=== PATIENT | male | born 1960 | race African-American/Black ===

== ENCOUNTER 2017-03-06 09:27 | Inpatient (IN) | payer OTHER ==
[2017-03-06 09:36] VITALS: BMI 25.8
--- NOTE | 2017-03-06 10:01 | PDOC ---
History of Present Illness - General History Source: Patient Exam Limitations: No Limitations - History of Present Illness Initial Comments: 03/06/17 10:25 The patient is a 56 year old male, with a significant past medical history of diabetes(non-compliant with medications), who presents to the emergency department with right foot pain, swelling, and erythema for approximately 4 days. The patient reports he began to develop pain in his right foot while at work 4 days ago. He denies any foot injuries or abrasions. Patient states when he returned home and took off his shoe, he noted increased swelling and erythema. He denies any associated fever, chills, numbness, tingling, or dizziness. He denies any chest pain, shortness of breath, diaphoresis, or palpitations. He denies any recent travel or sick contacts. Allergies: NKDA Past Surgical History: None reported Social History: Non smoker. No ETOH or recreational drug use. <Rishi Carnes - Last Filed: 03/06/17 13:31> <Ry Xiong - Last Filed: 03/06/17 16:36> - General Chief Complaint: Pain, Acute Stated Complaint: FOOT PAIN Time Seen by Provider: 03/06/17 10:00 Past History <Rishi Carnes - Last Filed: 03/06/17 13:31> - Past Medical History Anemia: No Asthma: No CVA: No COPD: No Diabetes: Yes (non complient) HTN: No - Immunization History Immunization Up to Date: Yes - Suicide/Smoking/Psychosocial Hx Smoking Status: No Smoking History: Never smoked Have you smoked in the past 12 months: No Number of Cigarettes Smoked Daily: 0 Information on smoking cessation initiated: No Hx Alcohol Use: No Drug/Substance Use Hx: No Substance Use Type: Alcohol Hx Substance Use Treatment: No <Ry Xiong - Last Filed: 03/06/17 16:36> - Past Medical History Allergies/Adverse Reactions: Allergies Allergy/AdvReac Type Severity Reaction Status Date / Time No Known Allergies Allergy Verified 03/06/17 09:31 Home Medications: Ambulatory Orders NK [No Known Home Medication] 03/06/17 Review of Systems - Review of Systems Able to Perform ROS?: Yes Comments:: 03/06/17 10:25 ROS: A complete review of 10 out of 10 review of systems is taken and is negative apart from what is previously mentioned below and in the HPI. <Rishi Carnes - Last Filed: 03/06/17 13:31> *Physical Exam - Vital Signs Last Vital Signs Temp Pulse Resp BP Pulse Ox 98.7 F 102 H 17 143/85 98 03/06/17 09:32 03/06/17 09:32 03/06/17 09:32 03/06/17 09:32 03/06/17 09:32 - Physical Exam Comments: 03/06/17 10:25 Vitals: Triage vital signs reviewed General Appearance: No acute distress, well nourished, well developed. Afebrile. Cardiac: Tachycardic. Regular rhythm, no murmurs, no rubs, no gallops Extremities: Full range of motion to all extremities, no cyanosis, clubbing. Skin: 7x11 cm area of cellulitis to the right dorsal aspect of the right foot that is erythematous and warm to touch. Remainder of the extremities warm and dry, no lesions, no petechiae <Rishi Carnes - Last Filed: 03/06/17 13:31> - Vital Signs Last Vital Signs Temp Pulse Resp BP Pulse Ox 98.7 F 102 H 17 143/85 98 03/06/17 09:32 03/06/17 09:32 03/06/17 09:32 03/06/17 09:32 03/06/17 09:32 <Ry Xiong - Last Filed: 03/06/17 16:36> ED Treatment Course - LABORATORY CBC & Chemistry Diagram: 03/06/17 11:45 03/06/17 10:58 - Additional Consults Time Called: 13:20 (First call to Dr. Wylie. Case discussed at this time.) Reason/Comments: Pt has not f/u with primary care provider in years. <Rishi Carnes - Last Filed: 03/06/17 13:31> - LABORATORY CBC & Chemistry Diagram: 03/06/17 11:45 03/06/17 10:58 <Ry Xiong - Last Filed: 03/06/17 16:36> Medical Decision Making - Medical Decision Making 03/06/17 16:36 57 years old with right foot cellulitis. Patient is a noncompliant diabetic with chills slight tachycardia and a slightly elevated white blood cell count. Given the patient has no close follow-up decision made to admit for IV antibiotics and further management. <Ry Xiong - Last Filed: 03/06/17 16:36> *DC/Admit/Observation/Transfer - Attestations Scribe Attestion: 03/06/17 10:26 Documentation prepared by Rishi Carnes, acting as medical center representative for Ry Xiong MD. <Rishi Carnes - Last Filed: 03/06/17 13:31> - Discharge Dispostion Admit: Yes <Ry Xiong - Last Filed: 03/06/17 16:36> Diagnosis at time of Disposition: Cellulitis Qualifiers: Site of cellulitis: extremity Site of cellulitis of extremity: lower extremity Laterality: right Qualified Code(s): L03.115 - Cellulitis of right lower limb - Discharge Dispostion Disposition: HOME
[2017-03-06 11:56] LABS: BASO % 0.3 % (0-2.0); EOS % 0.1 % (0-4.5); HEMATOCRIT 39.6 % (35.4-49); HEMOGLOBIN 12.9 GM/dL (11.7-16.9); LYMPH % 4.5 % (8-40); MCH 28.3 pg (25.7-33.7); MCHC 32.5 g/dl (32.0-35.9); MEAN CELL VOLUME 86.9 fl (80-96); MEAN PLT VOLUME 7.3 fl (7.5-11.1); MONO % 7.6 % (3.8-10.2); NEUT % 87.5 % (42.8-82.8); PLATELET COUNT 227 K/MM3 (134-434); RBC 4.55 M/mm3 (4.00-5.60); RDW 13.6 % (11.9-15.9); WHITE BLOOD COUNT 13.7 K/mm3 (4.0-10.0)
[2017-03-06 12:36] LABS: ALBUMIN 3.5 g/dl (3.4-5.0); ANION GAP 9 (8-16); BLOOD UREA NITROGEN 11 mg/dL (7-18); CALCIUM 8.7 mg/dL (8.5-10.1); CHLORIDE 102 mmol/L (98-107); CO2 28 mmol/L (21-32); CREATININE 0.9 mg/dL (0.7-1.3); GLUCOSE,RANDOM 275 mg/dL (74-106); POTASSIUM 4.2 mmol/L (3.5-5.1); SGOT/AST 12 U/L (15-37); SGPT/ALT 16 U/L (12-78); SODIUM 139 mmol/L (136-145)
[2017-03-06 12:38] LABS: ALK PHOS 112 U/L (45-117); BILIRUBIN,TOTAL 0.7 mg/dL (0.2-1.0); TOT PROT 7.7 g/dl (6.4-8.2)
[2017-03-06] MEDS ORDERED: CLINDAMYCIN 600MG PREMIX IVPB 600 MG/50 ML BAG IVPB ONE ×2 (13:12→13:31)
[2017-03-06] MEDS ORDERED: ACETAMINOPHEN 325 MG TABLET (FP) PO ONE (14:13)
[2017-03-06] MEDS ORDERED: ACETAMINOPHEN 325 MG TABLET (FP) ONE (14:18)
--- NOTE | 2017-03-06 15:36 | HP ---
Admitting History and Physical - Primary Care Physician PCP: Dhruv Wylie - Admission History of Present Illness: 56 year old male, with a significant past medical history of diabetes(non- compliant with medications), who presents to the emergency department with right foot pain, swelling, and erythema for approximately 4 days. The patient reports he began to develop pain in his right foot while at work 4 days ago. He denies any foot injuries or abrasions. Patient states when he returned home and took off his shoe, he noted increased swelling and erythema. He denies any associated fever, chills, numbness, tingling. - Past Medical History Endocrine: Yes: Diabetes Mellitus - Smoking History Smoking history: Never smoked Have you smoked in the past 12 months: No Aproximately how many cigarettes per day: 0 - Alcohol/Substance Use Hx Alcohol Use: No History of Substance Use: reports: None - Social History ADL: Independent History of Recent Travel: No Home Medications - Allergies Allergies/Adverse Reactions: Allergies Allergy/AdvReac Type Severity Reaction Status Date / Time No Known Allergies Allergy Verified 03/06/17 09:31 - Home Medications Home Medications: Ambulatory Orders NK [No Known Home Medication] 03/06/17 Family Disease History - Family Disease History Family Disease History: Diabetes: Mother Physical Examination Vital Signs: Vital Signs Temperature 99.5 F 03/06/17 13:46 Pulse Rate 108 H 03/06/17 13:46 Respiratory Rate 14 03/06/17 13:46 Blood Pressure 132/70 03/06/17 13:46 O2 Sat by Pulse Oximetry (%) 100 03/06/17 13:46 Constitutional: Yes: No Distress HENT: Yes: Atraumatic Neck: Yes: Supple Cardiovascular: Yes: Regular Rate and Rhythm Respiratory: Yes: CTA Bilaterally Gastrointestinal: Yes: Normal Bowel Sounds Extremities: Yes: Other (R foot swollen warm) Edema: Yes Edema: RLE: 2+ (r foot) Neurological: Yes: Alert, Oriented Labs: CBC, BMP 03/06/17 11:45 03/06/17 10:58 Problem List - Problems (1) Diabetes Assessment/Plan: bgms insulin metformin check hgba1c Code(s): E11.9 - TYPE 2 DIABETES MELLITUS WITHOUT COMPLICATIONS (2) Cellulitis Assessment/Plan: iv abx bcx id consult Code(s): L03.90 - CELLULITIS, UNSPECIFIED Qualifiers: Site of cellulitis: extremity Site of cellulitis of extremity: lower extremity Laterality: right Qualified Code(s): L03.115 - Cellulitis of right lower limb Assessment/Plan Laboratory Tests 03/06/17 03/06/17 10:58 11:45 WBC 13.7 H RBC 4.55 Hgb 12.9 Hct 39.6 MCV 86.9 MCH 28.3 MCHC 32.5 RDW 13.6 Plt Count 227 D MPV 7.3 L Neutrophils % 87.5 H Lymphocytes % 4.5 L D Monocytes % 7.6 Eosinophils % 0.1 D Basophils % 0.3 Sodium 139 Potassium 4.2 Chloride 102 Carbon Dioxide 28 Anion Gap 9 BUN 11 Creatinine 0.9 D Creat Clearance w eGFR > 60 Random Glucose 275 H Calcium 8.7 Total Bilirubin 0.7 D AST 12 L D ALT 16 Alkaline Phosphatase 112 D Total Protein 7.7 Albumin 3.5 D Active Medications Generic Name Dose Route Start Last Admin Trade Name Freq PRN Reason Stop Dose Admin Heparin Sodium (Porcine) 5,000 unit 03/06/17 22:00 Heparin - SQ BID [facility]IE[facility]NA Vancomycin HCl 1,000 mg/ 250 mls @ 150 mls/hr 03/06/17 17:15 03/06/17 18:46 Dextrose IVPB 03/06/17 18:54 150 mls/hr ONCE ONE Administration Piperacillin Sod/Tazobactam 100 mls @ 200 mls/hr 03/06/17 18:00 03/06/17 18: 24 Sod 3.375 gm/ Dextrose IVPB 200 mls/hr Q8H-IV [facility] Administration Insulin Aspart 1 vial 03/06/17 16:30 03/06/17 17:54 Novolog Vial Sliding Scale - SQ 12 units ACHS [facility] Administration Protocol Metformin HCl 500 mg 03/06/17 16:30 03/06/17 17:54 Glucophage - PO 500 mg BIDAC [facility] Administration
[2017-03-06] MEDS ORDERED: VANCOMYCIN 1,000 MG in DEXTROSE 5%-WATER - 250 ML IVPB ONE (17:15)
[2017-03-06] MEDS: INSULIN SLIDING SCALE (NOVOLOG) 1 VIAL SQ SCH ×2 (17:54→23:28)
[2017-03-06] MEDS: metFORMIN HCL 500 MG TABLET (FP) PO SCH (17:54)
[2017-03-06] MEDS: PIPERACILLIN/TAZOB 3.375 GM 3.375 GM in DEXTROSE 5%-WATER - 100 ML IVPB SCH (18:24)
[2017-03-06] MEDS ORDERED: ACETAMINOPHEN 325 MG TABLET (FP) PO PRN (18:58)
[2017-03-06] MEDS ORDERED: INSULIN DETEMIR 100 UNITS/ML MDV SQ SCH (22:00)
[2017-03-06] MEDS ORDERED: INSULIN (NOVOLOG) ASPART 100 UNITS/ML 10ML VIAL ONE (22:59)
[2017-03-06] MEDS: HEPARIN NA (PORCINE) 5,000 UNITS/ML 1ML VIAL SQ SCH (23:28)
[2017-03-07] MEDS: PIPERACILLIN/TAZOB 3.375 GM 3.375 GM in DEXTROSE 5%-WATER - 100 ML IVPB SCH ×3 (02:20→17:15)
[2017-03-07] MEDS: INSULIN SLIDING SCALE (NOVOLOG) 1 VIAL SQ SCH ×4 (06:12→22:05)
[2017-03-07] MEDS ORDERED: INSULIN (NOVOLOG) ASPART 100 UNITS/ML 10ML VIAL ONE (06:15)
[2017-03-07] MEDS: metFORMIN HCL 500 MG TABLET (FP) PO SCH ×2 (06:20→18:04)
[2017-03-07 08:09] LABS: BASO % 0.2 % (0-2.0); EOS % 0.8 % (0-4.5); HEMATOCRIT 34.1 % (35.4-49); HEMOGLOBIN 11.5 GM/dL (11.7-16.9); LYMPH % 10.8 % (8-40); MCH 28.9 pg (25.7-33.7); MCHC 33.8 g/dl (32.0-35.9); MEAN CELL VOLUME 85.6 fl (80-96); MEAN PLT VOLUME 7.7 fl (7.5-11.1); MONO % 8.4 % (3.8-10.2); NEUT % 79.8 % (42.8-82.8); PLATELET COUNT 230 K/MM3 (134-434); RBC 3.99 M/mm3 (4.00-5.60); RDW 13.2 % (11.9-15.9); WHITE BLOOD COUNT 10.7 K/mm3 (4.0-10.0)
[2017-03-07 08:26] LABS: ALBUMIN 2.7 g/dl (3.4-5.0); ANION GAP 8 (8-16); BLOOD UREA NITROGEN 12 mg/dL (7-18); CALCIUM 7.9 mg/dL (8.5-10.1); CHLORIDE 105 mmol/L (98-107); CO2 28 mmol/L (21-32); CREATININE 0.6 mg/dL (0.7-1.3); GLUCOSE,RANDOM 121 mg/dL (74-106); POTASSIUM 3.5 mmol/L (3.5-5.1); SGOT/AST 13 U/L (15-37); SGPT/ALT 16 U/L (12-78); SODIUM 141 mmol/L (136-145)
[2017-03-07 08:30] LABS: ALK PHOS 93 U/L (45-117); BILIRUBIN,TOTAL 0.5 mg/dL (0.2-1.0); TOT PROT 6.3 g/dl (6.4-8.2)
[2017-03-07] MEDS: HEPARIN NA (PORCINE) 5,000 UNITS/ML 1ML VIAL SQ SCH ×2 (10:03→22:05)
--- NOTE | 2017-03-07 16:41 | CON.ID ---
Consult Consult Specialty:: infectious diseases Reason for Consultation:: cellulitits of the rt leg - History of Present Illness Chief Complaint: pain and swelling of the rt leg and redness History of Present Illness: 56 year old male, with a significant past medical history of diabetes(non- compliant with medications), who presents to the emergency department with right foot pain, swelling, and erythema for approximately 4 days. The patient reports he began to develop pain in his right foot while at work 4 days ago. He denies any foot injuries or abrasions. Patient states when he returned home and took off his shoe, he noted increased swelling and erythema. He denies any associated fever, chills, numbness, tingling. patient mentions that he found that his shoe would not fit in his regular shoes denies any bite also - History Source History Provided By: Patient Limitations to Obtaining History: No Limitations - Past Medical History Endocrine: Yes: Diabetes Mellitus - Alcohol/Substance Use Hx Alcohol Use: No History of Substance Use: reports: None - Smoking History Smoking history: Never smoked Have you smoked in the past 12 months: No Aproximately how many cigarettes per day: 0 - Social History Usual Living Arrangement: With Spouse ADL: Independent History of Recent Travel: No Home Medications - Allergies Allergies/Adverse Reactions: Allergies Allergy/AdvReac Type Severity Reaction Status Date / Time No Known Allergies Allergy Verified 03/06/17 09:31 - Home Medications Home Medications: Ambulatory Orders NK [No Known Home Medication] 03/06/17 Family Disease History - Family Disease History Family Disease History: Diabetes: Mother Review of Systems - Review of Systems Constitutional: reports: No Symptoms Eyes: reports: No Symptoms HENT: reports: No Symptoms Neck: reports: No Symptoms Cardiovascular: reports: No Symptoms Respiratory: reports: No Symptoms Gastrointestinal: reports: No Symptoms Genitourinary: reports: No Symptoms Musculoskeletal: reports: Extremity Pain, Joint Swelling, Other Integumentary: reports: Change in Color, Erythema Neurological: reports: No Symptoms Endocrine: reports: No Symptoms Hematology/Lymphatic: reports: No Symptoms Physical Exam Vital Signs: Vital Signs Temperature 97.8 F 03/07/17 14:28 Pulse Rate 90 03/07/17 14:28 Respiratory Rate 20 03/07/17 14:28 Blood Pressure 119/69 03/07/17 14:28 O2 Sat by Pulse Oximetry (%) 98 03/07/17 09:00 Constitutional: Yes: Calm, Mild Distress Eyes: Yes: Conjunctiva Clear HENT: Yes: Atraumatic Neck: Yes: Supple, Trachea Midline Cardiovascular: Yes: Regular Rate and Rhythm Respiratory: Yes: Regular, CTA Bilaterally Gastrointestinal: Yes: Normal Bowel Sounds, Soft Musculoskeletal: Yes: Other (swelling and erythema on the rt leg with tenderness and pain) Labs: CBC, BMP 03/07/17 06:30 03/07/17 06:30 Imaging - Results X-ray: Report Reviewed, Image Reviewed Assessment/Plan Problem List - Problems (1) Diabetes Code(s): E11.9 - TYPE 2 DIABETES MELLITUS WITHOUT COMPLICATIONS (2) Cellulitis Code(s): L03.90 - CELLULITIS, UNSPECIFIED Qualifiers: Site of cellulitis: extremity Site of cellulitis of extrem plan will start on iv abx elevation of the leg blood sugar control rest as per primary team patient hb a1c was very high
--- NOTE | 2017-03-07 17:26 | PN ---
Progress Note, Physician - Current Medication List Current Medications: Active Medications Acetaminophen (Tylenol -) 650 mg PO Q6H PRN PRN Reason: FEVER Heparin Sodium (Porcine) (Heparin -) 5,000 unit SQ BID [facility] Last Admin: 03/07/17 10:03 Dose: 5,000 unit Piperacillin Sod/Tazobactam (Sod 3.375 gm/ Dextrose) 100 mls @ 200 mls/hr IVPB Q8H-IV [facility] Last Admin: 03/07/17 17:15 Dose: 200 mls/hr Insulin Aspart (Novolog Vial Sliding Scale -) 1 vial SQ ACHS [facility] PRN Reason: Protocol Last Admin: 03/07/17 12:44 Dose: 4 units Metformin HCl (Glucophage -) 500 mg PO BIDAC [facility] Last Admin: 03/07/17 06:20 Dose: 500 mg - Objective Vital Signs: Vital Signs Temperature 97.8 F 03/07/17 14:28 Pulse Rate 90 03/07/17 14:28 Respiratory Rate 20 03/07/17 14:28 Blood Pressure 119/69 03/07/17 14:28 O2 Sat by Pulse Oximetry (%) 98 03/07/17 09:00 Constitutional: Yes: No Distress HENT: Yes: Atraumatic Neck: Yes: Supple Cardiovascular: Yes: Regular Rate and Rhythm Respiratory: Yes: CTA Bilaterally Gastrointestinal: Yes: Normal Bowel Sounds Extremities: Yes: Other (r foot cellulitis much improved) Neurological: Yes: Alert, Oriented Labs: CBC, BMP 03/07/17 06:30 03/07/17 06:30 Problem List - Problems (1) Diabetes Assessment/Plan: bgms insulin metformin check hgba1c Code(s): E11.9 - TYPE 2 DIABETES MELLITUS WITHOUT COMPLICATIONS (2) Cellulitis Assessment/Plan: iv abx bcx id consult Code(s): L03.90 - CELLULITIS, UNSPECIFIED Qualifiers: Site of cellulitis: extremity Site of cellulitis of extremity: lower extremity Laterality: right Qualified Code(s): L03.115 - Cellulitis of right lower limb
[2017-03-08] MEDS: PIPERACILLIN/TAZOB 3.375 GM 3.375 GM in DEXTROSE 5%-WATER - 100 ML IVPB SCH ×3 (02:19→17:33)
[2017-03-08] MEDS: INSULIN SLIDING SCALE (NOVOLOG) 1 VIAL SQ SCH ×4 (06:25→21:00)
[2017-03-08] MEDS: metFORMIN HCL 500 MG TABLET (FP) PO SCH ×2 (06:28→16:22)
[2017-03-08] MEDS: HEPARIN NA (PORCINE) 5,000 UNITS/ML 1ML VIAL SQ SCH ×2 (10:05→21:00)
--- NOTE | 2017-03-08 17:10 | PN ---
Progress Note, Physician History of Present Illness: leg showing signs of improvement swelling and erythema has improved still with swelling and pain though - Current Medication List Current Medications: Active Medications Acetaminophen (Tylenol -) 650 mg PO Q6H PRN PRN Reason: FEVER Last Admin: 03/08/17 10:06 Dose: 650 mg Heparin Sodium (Porcine) (Heparin -) 5,000 unit SQ BID [facility] Last Admin: 03/08/17 10:05 Dose: Not Given Piperacillin Sod/Tazobactam (Sod 3.375 gm/ Dextrose) 100 mls @ 200 mls/hr IVPB Q8H-IV [facility] Last Admin: 03/08/17 10:27 Dose: 200 mls/hr Insulin Aspart (Novolog Vial Sliding Scale -) 1 vial SQ ACHS [facility] PRN Reason: Protocol Last Admin: 03/08/17 16:21 Dose: 12 units Metformin HCl (Glucophage -) 500 mg PO BIDAC [facility] Last Admin: 03/08/17 16:22 Dose: 500 mg - Objective Vital Signs: Vital Signs Temperature 99.0 F 03/08/17 10:00 Pulse Rate 87 03/08/17 10:00 Respiratory Rate 17 03/08/17 10:00 Blood Pressure 123/62 03/08/17 10:00 O2 Sat by Pulse Oximetry (%) 97 03/08/17 09:00 Constitutional: Yes: No Distress, Calm Cardiovascular: Yes: Regular Rate and Rhythm Respiratory: Yes: Regular, CTA Bilaterally Gastrointestinal: Yes: Normal Bowel Sounds, Soft Musculoskeletal: Yes: Other Extremities: Yes: Erythema, Other Integumentary: Yes: Erythema (improving) Neurological: Yes: Alert, Oriented Psychiatric: Yes: Alert, Oriented Labs: CBC, BMP 03/07/17 06:30 03/07/17 06:30 Assessment/Plan Problem List - Problems (1) Diabetes Code(s): E11.9 - TYPE 2 DIABETES MELLITUS WITHOUT COMPLICATIONS (2) Cellulitis Code(s): L03.90 - CELLULITIS, UNSPECIFIED Qualifiers: Site of cellulitis: extremity Site of cellulitis of extrem plan continue iv abx continue current mgmt rest as per primary team
--- NOTE | 2017-03-08 17:50 | PN ---
Progress Note, Physician - Current Medication List Current Medications: Active Medications Acetaminophen (Tylenol -) 650 mg PO Q6H PRN PRN Reason: FEVER Last Admin: 03/08/17 10:06 Dose: 650 mg Heparin Sodium (Porcine) (Heparin -) 5,000 unit SQ BID [facility] Last Admin: 03/08/17 10:05 Dose: Not Given Piperacillin Sod/Tazobactam (Sod 3.375 gm/ Dextrose) 100 mls @ 200 mls/hr IVPB Q8H-IV [facility] Last Admin: 03/08/17 17:33 Dose: 200 mls/hr Insulin Aspart (Novolog Vial Sliding Scale -) 1 vial SQ ACHS [facility] PRN Reason: Protocol Last Admin: 03/08/17 16:21 Dose: 12 units Metformin HCl (Glucophage -) 500 mg PO BIDAC [facility] Last Admin: 03/08/17 16:22 Dose: 500 mg - Objective Vital Signs: Vital Signs Temperature 99.0 F 03/08/17 10:00 Pulse Rate 87 03/08/17 10:00 Respiratory Rate 17 03/08/17 10:00 Blood Pressure 123/62 03/08/17 10:00 O2 Sat by Pulse Oximetry (%) 97 03/08/17 09:00 HENT: Yes: WNL Neck: Yes: Supple Cardiovascular: Yes: Regular Rate and Rhythm Respiratory: Yes: CTA Bilaterally Extremities: Yes: WNL Neurological: Yes: Alert, Oriented Labs: CBC, BMP 03/07/17 06:30 03/07/17 06:30 Problem List - Problems (1) Diabetes Assessment/Plan: bgms insulin metformin check hgba1c Code(s): E11.9 - TYPE 2 DIABETES MELLITUS WITHOUT COMPLICATIONS (2) Cellulitis Assessment/Plan: iv abx bcx id consult Code(s): L03.90 - CELLULITIS, UNSPECIFIED Qualifiers: Site of cellulitis: extremity Site of cellulitis of extremity: lower extremity Laterality: right Qualified Code(s): L03.115 - Cellulitis of right lower limb
[2017-03-09] MEDS: PIPERACILLIN/TAZOB 3.375 GM 3.375 GM in DEXTROSE 5%-WATER - 100 ML IVPB SCH ×3 (01:51→17:17)
[2017-03-09] MEDS: metFORMIN HCL 500 MG TABLET (FP) PO SCH ×2 (06:35→17:15)
[2017-03-09] MEDS: INSULIN SLIDING SCALE (NOVOLOG) 1 VIAL SQ SCH ×4 (06:35→22:16)
[2017-03-09 08:01] LABS: BASO % 0.2 % (0-2.0); EOS % 1.3 % (0-4.5); HEMATOCRIT 35.6 % (35.4-49); LYMPH % 11.7 % (8-40); MCH 28.8 pg (25.7-33.7); MCHC 33.6 g/dl (32.0-35.9); MEAN CELL VOLUME 85.7 fl (80-96); MEAN PLT VOLUME 7.4 fl (7.5-11.1); NEUT % 77.8 % (42.8-82.8); PLATELET COUNT 267 K/MM3 (134-434); RBC 4.16 M/mm3 (4.00-5.60); RDW 13.5 % (11.9-15.9); WHITE BLOOD COUNT 9.2 K/mm3 (4.0-10.0)
[2017-03-09 08:26] LABS: ALBUMIN 2.5 g/dl (3.4-5.0); ANION GAP 8 (8-16); BLOOD UREA NITROGEN 10 mg/dL (7-18); CALCIUM 8.6 mg/dL (8.5-10.1); CHLORIDE 102 mmol/L (98-107); CO2 29 mmol/L (21-32); CREATININE 0.7 mg/dL (0.7-1.3); GLUCOSE,RANDOM 172 mg/dL (74-106); SGOT/AST 12 U/L (15-37); SGPT/ALT 16 U/L (12-78); SODIUM 139 mmol/L (136-145)
[2017-03-09 08:28] LABS: ALK PHOS 96 U/L (45-117); BILIRUBIN,TOTAL 0.5 mg/dL (0.2-1.0); TOT PROT 6.5 g/dl (6.4-8.2)
[2017-03-09] MEDS ORDERED: PT OWN MED DRAWER 7, Y5N ONE ×3 (10:26→23:00)
[2017-03-09] MEDS: HEPARIN NA (PORCINE) 5,000 UNITS/ML 1ML VIAL SQ SCH ×2 (10:28→22:16)
[2017-03-09] MEDS ORDERED: INSULIN (NOVOLOG) ASPART 100 UNITS/ML 10ML VIAL ONE (11:45)
--- NOTE | 2017-03-09 11:54 | PN ---
Progress Note, Physician History of Present Illness: swelling has increased on questioning patient mentions that he was putting weight on the legs pain and tenderness has increased - Current Medication List Current Medications: Active Medications Acetaminophen (Tylenol -) 650 mg PO Q6H PRN PRN Reason: FEVER Last Admin: 03/08/17 10:06 Dose: 650 mg Heparin Sodium (Porcine) (Heparin -) 5,000 unit SQ BID [facility] Last Admin: 03/09/17 10:28 Dose: 5,000 unit Piperacillin Sod/Tazobactam (Sod 3.375 gm/ Dextrose) 100 mls @ 200 mls/hr IVPB Q8H-IV [facility] Last Admin: 03/09/17 10:28 Dose: 200 mls/hr Insulin Aspart (Novolog Vial Sliding Scale -) 1 vial SQ ACHS [facility] PRN Reason: Protocol Last Admin: 03/09/17 11:48 Dose: 6 units Metformin HCl (Glucophage -) 500 mg PO BIDAC [facility] Last Admin: 03/09/17 06:35 Dose: 500 mg - Objective Vital Signs: Vital Signs Temperature 98.4 F 03/09/17 06:00 Pulse Rate 91 H 03/09/17 06:00 Respiratory Rate 03/09/17 06:00 Blood Pressure 128/79 03/09/17 06:00 O2 Sat by Pulse Oximetry (%) 97 03/08/17 21:00 Constitutional: Yes: No Distress, Calm Cardiovascular: Yes: Regular Rate and Rhythm Respiratory: Yes: Regular, CTA Bilaterally Gastrointestinal: Yes: Normal Bowel Sounds, Soft Musculoskeletal: Yes: Other Extremities: Yes: Other Neurological: Yes: Alert, Oriented Psychiatric: Yes: Alert, Oriented Labs: CBC, BMP 03/09/17 07:30 03/09/17 07:30 Assessment/Plan Problem List - Problems (1) Diabetes Code(s): E11.9 - TYPE 2 DIABETES MELLITUS WITHOUT COMPLICATIONS (2) Cellulitis Code(s): L03.90 - CELLULITIS, UNSPECIFIED Qualifiers: Site of cellulitis: extremity Site of cellulitis of extrem plan continue iv abx continue current mgmt rest as per primary team will see how the leg behaves tomorrow
--- NOTE | 2017-03-09 17:43 | PN ---
Progress Note, Physician History of Present Illness: feeling good - Current Medication List Current Medications: Active Medications Acetaminophen (Tylenol -) 650 mg PO Q6H PRN PRN Reason: FEVER Last Admin: 03/08/17 10:06 Dose: 650 mg Heparin Sodium (Porcine) (Heparin -) 5,000 unit SQ BID [facility] Last Admin: 03/09/17 10:28 Dose: 5,000 unit Piperacillin Sod/Tazobactam (Sod 3.375 gm/ Dextrose) 100 mls @ 200 mls/hr IVPB Q8H-IV [facility] Last Admin: 03/09/17 17:17 Dose: 200 mls/hr Insulin Aspart (Novolog Vial Sliding Scale -) 1 vial SQ ACHS [facility] PRN Reason: Protocol Last Admin: 03/09/17 17:16 Dose: 6 units Metformin HCl (Glucophage -) 500 mg PO BIDAC [facility] Last Admin: 03/09/17 17:15 Dose: 500 mg - Objective Vital Signs: Vital Signs Temperature 99.3 F 03/09/17 14:29 Pulse Rate 88 03/09/17 14:29 Respiratory Rate 22 03/09/17 14:29 Blood Pressure 119/53 03/09/17 14:29 O2 Sat by Pulse Oximetry (%) 97 03/09/17 09:00 Constitutional: Yes: No Distress HENT: Yes: Atraumatic Neck: Yes: Supple Cardiovascular: Yes: Regular Rate and Rhythm Respiratory: Yes: CTA Bilaterally Gastrointestinal: Yes: Normal Bowel Sounds Extremities: Yes: Other (r foot cellulitis improving) Edema: RLE: 1+ (r foot) Peripheral Pulses WNL: Yes Neurological: Yes: Alert, Oriented Labs: CBC, BMP 03/09/17 07:30 03/09/17 07:30 Problem List - Problems (1) Diabetes Assessment/Plan: bgms insulin metformin check hgba1c Code(s): E11.9 - TYPE 2 DIABETES MELLITUS WITHOUT COMPLICATIONS (2) Cellulitis Assessment/Plan: iv abx bcx id consult Code(s): L03.90 - CELLULITIS, UNSPECIFIED Qualifiers: Site of cellulitis: extremity Site of cellulitis of extremity: lower extremity Laterality: right Qualified Code(s): L03.115 - Cellulitis of right lower limb
[2017-03-10] MEDS: PIPERACILLIN/TAZOB 3.375 GM 3.375 GM in DEXTROSE 5%-WATER - 100 ML IVPB SCH ×3 (02:01→17:36)
[2017-03-10] MEDS: metFORMIN HCL 500 MG TABLET (FP) PO SCH ×2 (06:28→16:34)
[2017-03-10] MEDS: INSULIN SLIDING SCALE (NOVOLOG) 1 VIAL SQ SCH ×4 (06:29→22:29)
[2017-03-10] MEDS ORDERED: INSULIN (NOVOLOG) ASPART 100 UNITS/ML 10ML VIAL ONE ×3 (06:29→22:17)
[2017-03-10] MEDS ORDERED: PT OWN MED DRAWER 7, Y5N ONE ×2 (10:06→16:43)
[2017-03-10] MEDS: HEPARIN NA (PORCINE) 5,000 UNITS/ML 1ML VIAL SQ SCH ×2 (10:08→22:29)
--- NOTE | 2017-03-10 14:01 | PN ---
Progress Note, Physician History of Present Illness: feeling better - Current Medication List Current Medications: Active Medications Acetaminophen (Tylenol -) 650 mg PO Q6H PRN PRN Reason: FEVER Last Admin: 03/08/17 10:06 Dose: 650 mg Heparin Sodium (Porcine) (Heparin -) 5,000 unit SQ BID [facility] Last Admin: 03/10/17 10:08 Dose: 5,000 unit Piperacillin Sod/Tazobactam (Sod 3.375 gm/ Dextrose) 100 mls @ 200 mls/hr IVPB Q8H-IV [facility] Last Admin: 03/10/17 10:08 Dose: 200 mls/hr Insulin Aspart (Novolog Vial Sliding Scale -) 1 vial SQ ACHS [facility] PRN Reason: Protocol Last Admin: 03/10/17 11:55 Dose: 4 units Metformin HCl (Glucophage -) 500 mg PO BIDAC [facility] Last Admin: 03/10/17 06:28 Dose: 500 mg - Objective Vital Signs: Vital Signs Temperature 97.9 F 03/10/17 09:18 Pulse Rate 60 03/10/17 09:18 Respiratory Rate 18 03/10/17 09:18 Blood Pressure 113/60 03/10/17 09:18 O2 Sat by Pulse Oximetry (%) 97 03/10/17 09:00 HENT: Yes: Atraumatic Neck: Yes: Supple Cardiovascular: Yes: Regular Rate and Rhythm Respiratory: Yes: CTA Bilaterally Gastrointestinal: Yes: Normal Bowel Sounds Extremities: Yes: Other (r foot cellulitis) Neurological: Yes: Alert, Oriented Labs: CBC, BMP 03/09/17 07:30 03/09/17 07:30 Problem List - Problems (1) Diabetes Assessment/Plan: bgms insulin metformin check hgba1c Code(s): E11.9 - TYPE 2 DIABETES MELLITUS WITHOUT COMPLICATIONS (2) Cellulitis Assessment/Plan: iv abx bcx id consult Code(s): L03.90 - CELLULITIS, UNSPECIFIED Qualifiers: Site of cellulitis: extremity Site of cellulitis of extremity: lower extremity Laterality: right Qualified Code(s): L03.115 - Cellulitis of right lower limb
--- NOTE | 2017-03-10 17:07 | PN ---
Progress Note, Physician History of Present Illness: patient stable swelling has decreased again still with some erythema and pain - Current Medication List Current Medications: Active Medications Acetaminophen (Tylenol -) 650 mg PO Q6H PRN PRN Reason: FEVER Last Admin: 03/08/17 10:06 Dose: 650 mg Heparin Sodium (Porcine) (Heparin -) 5,000 unit SQ BID [facility] Last Admin: 03/10/17 10:08 Dose: 5,000 unit Piperacillin Sod/Tazobactam (Sod 3.375 gm/ Dextrose) 100 mls @ 200 mls/hr IVPB Q8H-IV [facility] Last Admin: 03/10/17 10:08 Dose: 200 mls/hr Insulin Aspart (Novolog Vial Sliding Scale -) 1 vial SQ ACHS [facility] PRN Reason: Protocol Last Admin: 03/10/17 16:34 Dose: 8 units Metformin HCl (Glucophage -) 500 mg PO BIDAC [facility] Last Admin: 03/10/17 16:34 Dose: 500 mg - Objective Vital Signs: Vital Signs Temperature 98.1 F 03/10/17 14:24 Pulse Rate 90 03/10/17 14:24 Respiratory Rate 18 03/10/17 14:24 Blood Pressure 134/76 03/10/17 14:24 O2 Sat by Pulse Oximetry (%) 97 03/10/17 09:00 Constitutional: Yes: No Distress, Calm Cardiovascular: Yes: Regular Rate and Rhythm Respiratory: Yes: Regular, CTA Bilaterally Gastrointestinal: Yes: Normal Bowel Sounds, Soft Musculoskeletal: Yes: Other Extremities: Yes: Erythema (improving), Other Neurological: Yes: Alert, Oriented Psychiatric: Yes: Alert, Oriented Labs: CBC, BMP 03/09/17 07:30 03/09/17 07:30 Assessment/Plan Problem List - Problems (1) Diabetes Code(s): E11.9 - TYPE 2 DIABETES MELLITUS WITHOUT COMPLICATIONS (2) Cellulitis Code(s): L03.90 - CELLULITIS, UNSPECIFIED Qualifiers: Site of cellulitis: extremity Site of cellulitis of extrem plan continue iv abx continue current mgmt rest as per primary team probably will be able to change to abx to oral on monday
[2017-03-11] MEDS: PIPERACILLIN/TAZOB 3.375 GM 3.375 GM in DEXTROSE 5%-WATER - 100 ML IVPB SCH ×3 (02:52→19:14)
[2017-03-11] MEDS: metFORMIN HCL 500 MG TABLET (FP) PO SCH ×2 (06:29→17:44)
[2017-03-11] MEDS: INSULIN SLIDING SCALE (NOVOLOG) 1 VIAL SQ SCH ×4 (06:30→22:11)
[2017-03-11] MEDS ORDERED: PT OWN MED DRAWER 7, Y5N ONE ×2 (09:00→17:49)
[2017-03-11] MEDS: HEPARIN NA (PORCINE) 5,000 UNITS/ML 1ML VIAL SQ SCH ×2 (09:23→22:11)
--- NOTE | 2017-03-11 11:47 | PN ---
Progress Note, Physician History of Present Illness: Pt seen and examined. Events noted. Pt states his Rt foot is less tender and less swollen. Has no specific complaints. - Current Medication List Current Medications: Active Medications Acetaminophen (Tylenol -) 650 mg PO Q6H PRN PRN Reason: FEVER Last Admin: 03/08/17 10:06 Dose: 650 mg Heparin Sodium (Porcine) (Heparin -) 5,000 unit SQ BID MARIELENA Last Admin: 03/11/17 09:23 Dose: 5,000 unit Piperacillin Sod/Tazobactam (Sod 3.375 gm/ Dextrose) 100 mls @ 200 mls/hr IVPB Q8H-IV MARIELENA Last Admin: 03/11/17 09:23 Dose: 200 mls/hr Insulin Aspart (Novolog Vial Sliding Scale -) 1 vial SQ ACHS MARIELENA PRN Reason: Protocol Last Admin: 03/11/17 06:30 Dose: 4 units Metformin HCl (Glucophage -) 500 mg PO BIDAC [facility] Last Admin: 03/11/17 06:29 Dose: 500 mg - Objective Vital Signs: Vital Signs Temperature 97.6 F 03/11/17 10:00 Pulse Rate 109 H 03/11/17 10:00 Respiratory Rate 18 03/11/17 10:00 Blood Pressure 122/87 03/11/17 10:00 O2 Sat by Pulse Oximetry (%) 97 03/10/17 21:00 Constitutional: Yes: No Distress, Calm Cardiovascular: Yes: Regular Rate and Rhythm Respiratory: Yes: CTA Bilaterally Gastrointestinal: Yes: Normal Bowel Sounds, Soft Extremities: Yes: Other (Rt foot/ankle mild edema/erythema, less tender) Neurological: Yes: Alert Labs: CBC, BMP 03/09/17 07:30 03/09/17 07:30 Problem List - Problems (1) Cellulitis Code(s): L03.90 - CELLULITIS, UNSPECIFIED Qualifiers: Site of cellulitis: extremity Site of cellulitis of extremity: lower extremity Laterality: right Qualified Code(s): L03.115 - Cellulitis of right lower limb (2) Diabetes Code(s): E11.9 - TYPE 2 DIABETES MELLITUS WITHOUT COMPLICATIONS Assessment/Plan Rt foot/ankle cellulitis - continue current antibiotics for now - will re-assess tomorrow, monitor temps
[2017-03-11] MEDS ORDERED: INSULIN (NOVOLOG) ASPART 100 UNITS/ML 10ML VIAL ONE (11:52)
--- NOTE | 2017-03-11 18:07 | PN ---
Progress Note, Physician History of Present Illness: feeling better - Current Medication List Current Medications: Active Medications Acetaminophen (Tylenol -) 650 mg PO Q6H PRN PRN Reason: FEVER Last Admin: 03/08/17 10:06 Dose: 650 mg Heparin Sodium (Porcine) (Heparin -) 5,000 unit SQ BID MARIELENA Last Admin: 03/11/17 09:23 Dose: 5,000 unit Piperacillin Sod/Tazobactam (Sod 3.375 gm/ Dextrose) 100 mls @ 200 mls/hr IVPB Q8H-IV MARIELENA Last Admin: 03/11/17 09:23 Dose: 200 mls/hr Insulin Aspart (Novolog Vial Sliding Scale -) 1 vial SQ ACHS MARIELENA PRN Reason: Protocol Last Admin: 03/11/17 17:45 Dose: Not Given Metformin HCl (Glucophage -) 500 mg PO BIDAC [facility] Last Admin: 03/11/17 17:44 Dose: 500 mg - Objective Vital Signs: Vital Signs Temperature 97.7 F 03/11/17 14:15 Pulse Rate 81 03/11/17 14:15 Respiratory Rate 16 03/11/17 14:15 Blood Pressure 131/70 03/11/17 14:15 O2 Sat by Pulse Oximetry (%) 97 03/11/17 09:00 Constitutional: Yes: No Distress HENT: Yes: Atraumatic Neck: Yes: Supple Cardiovascular: Yes: Regular Rate and Rhythm Respiratory: Yes: CTA Bilaterally Gastrointestinal: Yes: Normal Bowel Sounds Extremities: Yes: WNL Edema: Yes Edema: RLE: Trace (R foot) Neurological: Yes: Alert, Oriented Labs: CBC, BMP 03/09/17 07:30 03/09/17 07:30 Problem List - Problems (1) Diabetes Assessment/Plan: bgms insulin metformin check hgba1c Code(s): E11.9 - TYPE 2 DIABETES MELLITUS WITHOUT COMPLICATIONS (2) Cellulitis Assessment/Plan: iv abx bcx id consult Code(s): L03.90 - CELLULITIS, UNSPECIFIED Qualifiers: Site of cellulitis: extremity Site of cellulitis of extremity: lower extremity Laterality: right Qualified Code(s): L03.115 - Cellulitis of right lower limb
[2017-03-12] MEDS: PIPERACILLIN/TAZOB 3.375 GM 3.375 GM in DEXTROSE 5%-WATER - 100 ML IVPB SCH ×3 (01:59→17:09)
[2017-03-12] MEDS: INSULIN SLIDING SCALE (NOVOLOG) 1 VIAL SQ SCH ×4 (06:39→21:20)
[2017-03-12] MEDS: metFORMIN HCL 500 MG TABLET (FP) PO SCH ×2 (06:39→17:08)
[2017-03-12] MEDS ORDERED: PT OWN MED DRAWER 7, Y5N ONE ×2 (10:12→16:54)
[2017-03-12] MEDS: HEPARIN NA (PORCINE) 5,000 UNITS/ML 1ML VIAL SQ SCH ×2 (10:42→21:20)
--- NOTE | 2017-03-12 13:01 | PN ---
Progress Note, Physician History of Present Illness: Pt states he feels better. Is able to walk around with less pain and tension in Rt foot. Denies having any other specific complaints. - Current Medication List Current Medications: Active Medications Acetaminophen (Tylenol -) 650 mg PO Q6H PRN PRN Reason: FEVER Last Admin: 03/08/17 10:06 Dose: 650 mg Heparin Sodium (Porcine) (Heparin -) 5,000 unit SQ BID MARIELENA Last Admin: 03/12/17 10:42 Dose: 5,000 unit Piperacillin Sod/Tazobactam (Sod 3.375 gm/ Dextrose) 100 mls @ 200 mls/hr IVPB Q8H-IV MARIELENA Last Admin: 03/12/17 10:42 Dose: 200 mls/hr Insulin Aspart (Novolog Vial Sliding Scale -) 1 vial SQ ACHS MARIELENA PRN Reason: Protocol Last Admin: 03/12/17 12:10 Dose: 6 units Metformin HCl (Glucophage -) 500 mg PO BIDAC [facility] Last Admin: 03/12/17 06:39 Dose: 500 mg - Objective Vital Signs: Vital Signs Temperature 98.5 F 03/12/17 10:00 Pulse Rate 89 03/12/17 10:00 Respiratory Rate 20 03/12/17 10:00 Blood Pressure 116/57 03/12/17 10:00 O2 Sat by Pulse Oximetry (%) 98 03/12/17 10:00 Constitutional: Yes: No Distress, Calm Cardiovascular: Yes: Regular Rate and Rhythm Respiratory: Yes: Regular Gastrointestinal: Yes: Normal Bowel Sounds, Soft Integumentary: Yes: Other (Rt foot with less erythema/tenderness, still some mild swelling in dorsal/anterior ankle region) Labs: CBC, BMP 03/09/17 07:30 03/09/17 07:30 Problem List - Problems (1) Cellulitis Code(s): L03.90 - CELLULITIS, UNSPECIFIED Qualifiers: Site of cellulitis: extremity Site of cellulitis of extremity: lower extremity Laterality: right Qualified Code(s): L03.115 - Cellulitis of right lower limb (2) Diabetes Code(s): E11.9 - TYPE 2 DIABETES MELLITUS WITHOUT COMPLICATIONS Assessment/Plan Rt foot/ankle cellulitis - appears to be improving, less erythema/tenderness - plan to switch to po antibiotics tomorrow
--- NOTE | 2017-03-12 13:28 | PN ---
Progress Note, Physician History of Present Illness: feeling better - Current Medication List Current Medications: Active Medications Acetaminophen (Tylenol -) 650 mg PO Q6H PRN PRN Reason: FEVER Last Admin: 03/08/17 10:06 Dose: 650 mg Heparin Sodium (Porcine) (Heparin -) 5,000 unit SQ BID MARIELENA Last Admin: 03/12/17 10:42 Dose: 5,000 unit Piperacillin Sod/Tazobactam (Sod 3.375 gm/ Dextrose) 100 mls @ 200 mls/hr IVPB Q8H-IV MARIELENA Last Admin: 03/12/17 10:42 Dose: 200 mls/hr Insulin Aspart (Novolog Vial Sliding Scale -) 1 vial SQ ACHS MARIELENA PRN Reason: Protocol Last Admin: 03/12/17 12:10 Dose: 6 units Metformin HCl (Glucophage -) 500 mg PO BIDAC [facility] Last Admin: 03/12/17 06:39 Dose: 500 mg - Objective Vital Signs: Vital Signs Temperature 98.5 F 03/12/17 10:00 Pulse Rate 89 03/12/17 10:00 Respiratory Rate 20 03/12/17 10:00 Blood Pressure 116/57 03/12/17 10:00 O2 Sat by Pulse Oximetry (%) 98 03/12/17 10:00 Constitutional: Yes: No Distress HENT: Yes: Atraumatic Neck: Yes: Supple Cardiovascular: Yes: Regular Rate and Rhythm Respiratory: Yes: CTA Bilaterally Gastrointestinal: Yes: Normal Bowel Sounds Extremities: Yes: Other (LEFT FOOT CELLULITIS IMPROVING) Neurological: Yes: Alert, Oriented Labs: CBC, BMP 03/09/17 07:30 03/09/17 07:30 Problem List - Problems (1) Diabetes Assessment/Plan: bgms insulin metformin check hgba1c Code(s): E11.9 - TYPE 2 DIABETES MELLITUS WITHOUT COMPLICATIONS (2) Cellulitis Assessment/Plan: iv abx bcx id consult Code(s): L03.90 - CELLULITIS, UNSPECIFIED Qualifiers: Site of cellulitis: extremity Site of cellulitis of extremity: lower extremity Laterality: right Qualified Code(s): L03.115 - Cellulitis of right lower limb
[2017-03-13] MEDS ORDERED: PT OWN MED DRAWER 7, Y5N ONE ×2 (01:32→14:25)
[2017-03-13] MEDS: PIPERACILLIN/TAZOB 3.375 GM 3.375 GM in DEXTROSE 5%-WATER - 100 ML IVPB SCH ×2 (01:35→09:31)
[2017-03-13] MEDS: metFORMIN HCL 500 MG TABLET (FP) PO SCH ×2 (06:53→17:13)
[2017-03-13] MEDS: INSULIN SLIDING SCALE (NOVOLOG) 1 VIAL SQ SCH ×3 (06:53→17:14)
[2017-03-13] MEDS ORDERED: INSULIN (NOVOLOG) ASPART 100 UNITS/ML 10ML VIAL ONE ×2 (08:09→11:23)
[2017-03-13] MEDS: HEPARIN NA (PORCINE) 5,000 UNITS/ML 1ML VIAL SQ SCH (09:31)
--- NOTE | 2017-03-13 14:49 | PN ---
Progress Note, Physician History of Present Illness: patient doing well leg looks much better swelling minimal - Current Medication List Current Medications: Active Medications Acetaminophen (Tylenol -) 650 mg PO Q6H PRN PRN Reason: FEVER Last Admin: 03/08/17 10:06 Dose: 650 mg Heparin Sodium (Porcine) (Heparin -) 5,000 unit SQ BID [facility] Last Admin: 03/13/17 09:31 Dose: Not Given Piperacillin Sod/Tazobactam (Sod 3.375 gm/ Dextrose) 100 mls @ 200 mls/hr IVPB Q8H-IV [facility] Last Admin: 03/13/17 09:31 Dose: 200 mls/hr Insulin Aspart (Novolog Vial Sliding Scale -) 1 vial SQ ACHS MARIELENA PRN Reason: Protocol Last Admin: 03/13/17 11:37 Dose: 2 units Metformin HCl (Glucophage -) 500 mg PO BIDAC [facility] Last Admin: 03/13/17 06:53 Dose: 500 mg - Objective Vital Signs: Vital Signs Temperature 97.3 F L 03/13/17 14:19 Pulse Rate 86 03/13/17 14:19 Respiratory Rate 20 03/13/17 14:19 Blood Pressure 122/73 03/13/17 14:19 O2 Sat by Pulse Oximetry (%) 98 03/13/17 09:00 Constitutional: Yes: No Distress, Calm Cardiovascular: Yes: Regular Rate and Rhythm Respiratory: Yes: Regular, CTA Bilaterally Gastrointestinal: Yes: Normal Bowel Sounds, Soft Musculoskeletal: Yes: WNL Extremities: Yes: Other Neurological: Yes: Alert, Oriented Psychiatric: Yes: Alert, Oriented Labs: CBC, BMP 03/09/17 07:30 03/09/17 07:30 Assessment/Plan Problem List - Problems (1) Diabetes Code(s): E11.9 - TYPE 2 DIABETES MELLITUS WITHOUT COMPLICATIONS (2) Cellulitis Code(s): L03.90 - CELLULITIS, UNSPECIFIED Qualifiers: Site of cellulitis: extremity Site of cellulitis of extrem plan change to oral augmentin 875 mg bid for another 5 days
[2017-03-13] MEDS ORDERED: AMOX TR/POT CLAV 875MG/125MG TABLETS (FP) PO SCH (17:30)
[2017-03-13 19:03] VITALS: BP 125/66; PULSE 20; TEMP 98.5
--- NOTE | 2017-03-13 20:52 | DS ---
Physical Examination Vital Signs: Vital Signs Temperature 98.5 F 03/13/17 19:03 Pulse Rate 20 L 03/13/17 19:03 Respiratory Rate 20 03/13/17 19:03 Blood Pressure 125/66 03/13/17 19:03 O2 Sat by Pulse Oximetry (%) 98 03/13/17 09:00 Constitutional: Yes: No Distress HENT: Yes: Atraumatic Neck: Yes: Supple Cardiovascular: Yes: Regular Rate and Rhythm Respiratory: Yes: CTA Bilaterally Gastrointestinal: Yes: Normal Bowel Sounds Extremities: Yes: Other (cellulitis R foot resolving) Edema: RLE: Trace (r foot) Neurological: Yes: Alert, Oriented Labs: CBC, BMP 03/09/17 07:30 03/09/17 07:30 Discharge Summary Reason For Visit: CELLULITIS - Instructions Referrals: Dhruv Wylie MD [Staff Physician] - Jyoti Poon MD [Staff Physician] - Disposition: HOME - Home Medications Comprehensive Discharge Medication List: Ambulatory Orders Amox-Tr/K Cl [Augmentin 875-125mg Tablet -] 1 tab PO BID@0800,1730 #10 tablet Metformin HCl [Glucophage -] 500 mg PO BIDAC #60 tablet 03/13/17 mo home
== END 2017-03-13 19:56 | disposition home or self-care (01) | DRG 603 ==
LOC: JER 09:27 → JERBED 13:11 → J5S 03-08 19:06 → J4S 03-11 14:42
PROVIDERS: ADMIT Internal Medicine; ATTEND Internal Medicine
DX: L03.115 Cellulitis of right lower limb (principal); E11.9 Type 2 diabetes mellitus without complications; Z91.14 Patient's other noncompliance with medication regimen; R00.0 Tachycardia, unspecified
CPT/HCPCS: 36415; 73630-TC-RT; 80053; 82962; 83036; 85025; 87040; 93970-TC; 99285-25; J1644

== ENCOUNTER 2017-03-23 16:49 | Inpatient (IN) | payer OTHER ==
--- NOTE | 2017-03-23 16:57 | PDOC ---
Rapid Medical Evaluation Medical Evaluation: Allergies Allergy/AdvReac Type Severity Reaction Status Date / Time No Known Allergies Allergy Verified 03/23/17 16:50 03/23/17 16:58 57 year old male with NIDDM admitted 03/06-03/13 with right foot cellulitis ( completed Augmentin 2 days ago), sent in by Dr. Manriquez for re-evaluation. Patient complaining of persistent foot pain and swelling. Medial aspect of right foot dark/discolored, swollen, tender. V/s notable for P 98. Foot xray Basic labs/cultures To Main ED for further evaluation Discharge Disposition - Referrals Referrals: Reyna Manriquez MD [Primary Care Provider] - - Patient Instructions - Post Discharge Activity
[2017-03-23 18:06] LABS: BASO % 0.7 % (0-2.0); EOS % 2.5 % (0-4.5); HEMATOCRIT 36.9 % (35.4-49); HEMOGLOBIN 12.4 GM/dL (11.7-16.9); LYMPH % 24.7 % (8-40); MCH 28.7 pg (25.7-33.7); MCHC 33.5 g/dl (32.0-35.9); MEAN CELL VOLUME 85.6 fl (80-96); MEAN PLT VOLUME 7.4 fl (7.5-11.1); NEUT % 64.1 % (42.8-82.8); PLATELET COUNT 432 K/MM3 (134-434); RBC 4.31 M/mm3 (4.00-5.60); RDW 13.6 % (11.9-15.9); WHITE BLOOD COUNT 5.7 K/mm3 (4.0-10.0)
[2017-03-23 18:25] LABS: INR 1.1 (0.82-1.09); PROTHROMBIN TIME (PATIENT) 12.4 SEC (9.98-11.88)
[2017-03-23 18:28] LABS: ACTIVATED PTT 36.4 SECONDS (26.9-34.4)
[2017-03-23 18:33] LABS: ALBUMIN 3.3 g/dl (3.4-5.0); ANION GAP 3 (8-16); BILIRUBIN,TOTAL 0.3 mg/dL (0.2-1.0); BLOOD UREA NITROGEN 14 mg/dL (7-18); CALCIUM 8.6 mg/dL (8.5-10.1); CHLORIDE 102 mmol/L (98-107); CO2 32 mmol/L (21-32); GLUCOSE,RANDOM 287 mg/dL (74-106); POTASSIUM 4.3 mmol/L (3.5-5.1); SGOT/AST 7 U/L (15-37); SGPT/ALT 16 U/L (12-78); SODIUM 137 mmol/L (136-145); TOT PROT 7.5 g/dl (6.4-8.2)
[2017-03-23 18:34] LABS: ALK PHOS 134 U/L (45-117)
[2017-03-23] MEDS ORDERED: PIPERACIL/TAZOB 3.375 GM 3.375 GM/50 ML PREMIX IVPB ONE (19:35)
[2017-03-23] MEDS ORDERED: VANCOMYCIN 1,000 MG in DEXTROSE 5%-WATER - 250 ML IVPB ONE (19:36)
[2017-03-23] MEDS ORDERED: PIPERACILLIN/TAZOB 3.375 GM 3.375 GM in DEXTROSE 5%-WATER - 100 ML IVPB ONE (19:45)
[2017-03-23] MEDS ORDERED: VANCOMYCIN 1 GRAM (PRE-DOCKED) 1,000 MG/250 ML BAG IVPB ONE (19:53)
[2017-03-23] MEDS ORDERED: PIPERACILLIN/TAZOB 3.375 GM 3.375 GM/50 ML BAG IVPB ONE (19:54)
--- NOTE | 2017-03-23 20:38 | PDOC ---
History of Present Illness - General History Source: Patient Exam Limitations: No Limitations <Suresh Tena - Last Filed: 03/23/17 20:40> - General History Source: Patient Exam Limitations: No Limitations - History of Present Illness Initial Comments: 03/23/17 21:15 The patient is a 57 year old male, with a significant past medical history of diabetes mellitus, who presents to the emergency department with, a skin infection on the lower right ankle for approx. 2 weeks. The patient reports he was recently admitted to [facility] for 1 weeks and diagnosed with a skin infection on the lower right ankle. The patient reports the swelling has decreased during the past week. However, he reports when he visited Dr. Manriquez yesterday for a follow up he was advised to come back to the ED today for evaluation. The patient reports he has been compliant with the prescribed antibiotics for the lower right ankle skin infection (patient is unsure of the name of the antibiotics). He denies any recent fevers, chills, headache or dizziness. He denies any recent nausea, vomit, diarrhea or constipation. He denies any recent chest pain or shortness of breath. He denies any recent dysuria, frequency, urgency or hematuria. Allergies: NKA Past surgical history: None reported. Social History: Nonsmoker. Denies EtOH use and recreational drug use. Primary Care Physician: Dr. Wylie <Kalin Carpenter - Last Filed: 03/23/17 21:32> - General Chief Complaint: Redness To Affected Area Stated Complaint: RT FOOT PAIN Time Seen by Provider: 03/23/17 19:35 Past History - Past Medical History Anemia: No Asthma: No CVA: No COPD: No Diabetes: Yes (non complient) HTN: No - Immunization History Immunization Up to Date: Yes - Suicide/Smoking/Psychosocial Hx Smoking Status: No Smoking History: Never smoked Have you smoked in the past 12 months: No Number of Cigarettes Smoked Daily: 0 Information on smoking cessation initiated: No Hx Alcohol Use: No Drug/Substance Use Hx: No Substance Use Type: None Hx Substance Use Treatment: No <Suresh Tena - Last Filed: 03/23/17 20:40> <Kalin Carpenter - Last Filed: 03/23/17 21:32> - Past Medical History Allergies/Adverse Reactions: Allergies Allergy/AdvReac Type Severity Reaction Status Date / Time No Known Allergies Allergy Verified 03/23/17 16:50 Home Medications: Ambulatory Orders Metformin HCl [Glucophage -] 500 mg PO BIDAC #60 tablet 03/13/17 Review of Systems - Review of Systems Comments:: 03/23/17 21:16 GENERAL/CONSTITUTIONAL: No fever or chills. No weakness. HEAD, EYES, EARS, NOSE AND THROAT: No change in vision. No ear pain or discharge. No sore throat. CARDIOVASCULAR: No chest pain or shortness of breath. RESPIRATORY: No cough, wheezing, or hemoptysis. GASTROINTESTINAL: No nausea, vomiting, diarrhea or constipation. GENITOURINARY: No dysuria, frequency, or change in urination. MUSCULOSKELETAL: No joint or muscle swelling or pain. No neck or back pain. SKIN: No rash NEUROLOGIC: No headache, vertigo, loss of consciousness, or change in strength/ sensation. ENDOCRINE: No increased thirst. No abnormal weight change. HEMATOLOGIC/LYMPHATIC: No anemia, easy bleeding, or history of blood clots. ALLERGIC/IMMUNOLOGIC: No hives or skin allergy. <Kalin Carpenter - Last Filed: 03/23/17 21:32> *Physical Exam - Vital Signs Last Vital Signs Temp Pulse Resp BP Pulse Ox 98.3 F 98 H 18 147/88 100 03/23/17 16:51 03/23/17 16:51 03/23/17 16:51 03/23/17 16:51 03/23/17 16:51 <Suresh Tena - Last Filed: 03/23/17 20:40> - Vital Signs Last Vital Signs Temp Pulse Resp BP Pulse Ox 98.3 F 98 H 18 147/88 100 03/23/17 16:51 03/23/17 16:51 03/23/17 16:51 03/23/17 16:51 03/23/17 16:51 - Physical Exam Comments: 03/23/17 21:17 GENERAL: Awake, alert, and fully oriented, in no acute distress HEAD: No signs of trauma EYES: PERRLA, EOMI, sclera anicteric, conjunctiva clear ENT: Auricles normal inspection, hearing grossly normal, nares patent, oropharynx clear without exudates. Moist mucosa NECK: Normal ROM, supple, no lymphadenopathy, JVD, or masses LUNGS: Breath sounds equal, clear to auscultation bilaterally. No wheezes, and no crackles HEART: Regular rate and rhythm, normal S1 and S2, no murmurs, rubs or gallops ABDOMEN: Soft, nontender, normoactive bowel sounds. No guarding, no rebound. No masses EXTREMITIES: +4x4 cm erythema, warm to touch, edema, on the right medial ankle. Full range of motion. 2+ dorsalis pedis pulses. NEUROLOGICAL: Cranial nerves II through XII grossly intact. Normal speech, normal gait SKIN: Warm, Dry, normal turgor. <Kalin Carpenter - Last Filed: 03/23/17 21:32> ED Treatment Course - LABORATORY CBC & Chemistry Diagram: 03/23/17 17:31 03/23/17 17:31 - ADDITIONAL ORDERS Additional order review: Laboratory Results 03/23/17 03/23/17 03/23/17 17:31 17:31 17:31 PT with INR 12.40 H INR 1.10 PTT (Actin FS) 36.4 H Sodium 137 Potassium 4.3 Chloride 102 Carbon Dioxide 32 Anion Gap 3 L BUN 14 D Creatinine 1.0 D Creat Clearance w eGFR > 60 Random Glucose 287 H D Lactic Acid 1.1 Calcium 8.6 Total Bilirubin 0.3 D AST 7 L D ALT 16 Alkaline Phosphatase 134 H D Total Protein 7.5 Albumin 3.3 L D 03/23/17 17:31 RBC 4.31 MCV 85.6 MCHC 33.5 RDW 13.6 MPV 7.4 L Neutrophils % 64.1 Lymphocytes % 24.7 D Monocytes % 8.0 Eosinophils % 2.5 D Basophils % 0.7 D - Medications Given in the ED: ED Medications Discontinued Medications Generic Name Dose Route Start Last Admin Trade Name Freq PRN Reason Stop Dose Admin Vancomycin HCl 1,000 mg/ 250 mls @ 250 mls/hr 03/23/17 19:36 03/23/17 20:18 Dextrose IVPB 03/23/17 20:35 250 mls/hr ONCE ONE Administration Protocol Piperacillin Sod/Tazobactam 100 mls @ 200 mls/hr 03/23/17 19:45 03/23/17 20: 03 Sod 3.375 gm/ Dextrose IVPB 03/23/17 20:14 200 mls/hr ONCE ONE Administration <Suresh Tena - Last Filed: 03/23/17 20:40> - LABORATORY CBC & Chemistry Diagram: 03/23/17 17:31 03/23/17 17:31 - ADDITIONAL ORDERS Additional order review: Laboratory Results 03/23/17 03/23/17 03/23/17 19:40 17:31 17:31 PT with INR INR PTT (Actin FS) Sodium 137 Potassium 4.3 Chloride 102 Carbon Dioxide 32 Anion Gap 3 L BUN 14 D Creatinine 1.0 D Creat Clearance w eGFR > 60 Random Glucose 287 H D Lactic Acid 1.0 1.1 Calcium 8.6 Total Bilirubin 0.3 D AST 7 L D ALT 16 Alkaline Phosphatase 134 H D Total Protein 7.5 Albumin 3.3 L D 03/23/17 17:31 PT with INR 12.40 H INR 1.10 PTT (Actin FS) 36.4 H Sodium Potassium Chloride Carbon Dioxide Anion Gap BUN Creatinine Creat Clearance w eGFR Random Glucose Lactic Acid Calcium Total Bilirubin AST ALT Alkaline Phosphatase Total Protein Albumin 03/23/17 17:31 RBC 4.31 MCV 85.6 MCHC 33.5 RDW 13.6 MPV 7.4 L Neutrophils % 64.1 Lymphocytes % 24.7 D Monocytes % 8.0 Eosinophils % 2.5 D Basophils % 0.7 D - RADIOLOGY Radiograph Interpretation: 03/23/17 21:29 EXAM#: TYPE/EXAM: RESULT: [id number] RAD/CHEST X-RAY PORTABLE* Exam: Chest x-ray - single AP view. Indication: Sepsis. Comparison: 07/05/2013 chest x-ray. Findings: There is no evidence of acute infiltrate, pulmonary vascular congestion, pleural effusion or pneumothorax. Normal size and contours of the cardiomediastinal silhouette. There is calcification along the aortic arch. There is no abnormal deviation of the trachea. The hilar regions are grossly unremarkable. Impression: No evidence of acute infiltrate or pleural effusion. Reported By: Brayan Hogan DO 03/23/17 21:30 EXAM#: TYPE/EXAM: RESULT: [id number] RAD/ANKLE FOOT-RIGHT* Exam: Right ankle and right foot x-ray - AP, lateral and oblique views. Indication: Clinical suspicion for osteomyelitis. Comparison: 03/06/2017 right foot x-ray. Findings: Osseous alignment is anatomic. The ankle mortise is symmetric. The talar dome is grossly intact. There is no evidence of acute fracture or dislocation in the right ankle or right foot. There is no focal demineralization or definite osseous destruction to suggest osteomyelitis. There is a 1.0 cm os peroneus versus elongated stiedae process. There are prominent soft tissues overlying the ankle and dorsal midfoot. Impression: 1. No radiographic evidence of osteomyelitis at this time. Triple phase nuclear bone scintigraphy and MRI are more sensitive in detecting osteomyelitis. 2. Soft tissue swelling/edema overlying the right ankle and dorsal midfoot. Reported By: Brayan Hogan DO - Medications Given in the ED: ED Medications Discontinued Medications Generic Name Dose Route Start Last Admin Trade Name Freq PRN Reason Stop Dose Admin Vancomycin HCl 1,000 mg/ 250 mls @ 250 mls/hr 03/23/17 19:36 03/23/17 20:18 Dextrose IVPB 03/23/17 20:35 250 mls/hr ONCE ONE Administration Protocol Piperacillin Sod/Tazobactam 100 mls @ 200 mls/hr 03/23/17 19:45 03/23/17 20: 03 Sod 3.375 gm/ Dextrose IVPB 03/23/17 20:14 200 mls/hr ONCE ONE Administration <Kalin Carpenter - Last Filed: 03/23/17 21:32> Medical Decision Making - Medical Decision Making 03/23/17 20:40 A portion of this note was documented by scribe services under my direction. I have reviewed the details of the note, within reason, and agree with the documentation with the following case summary and management plan written by me. Patient treated in the ED. Nursing notes are reviewed and incorporated into the medical decision-making. Vital signs reviewed. Peripheral IV access obtained by the nurse, laboratory studies are drawn and sent, reviewed and interpreted by myself. Vital Signs Temp Pulse Resp BP Pulse Ox 98.3 F 98 H 18 147/88 100 03/23/17 16:51 03/23/17 16:51 03/23/17 16:51 03/23/17 16:51 03/23/17 16:51 57 year old male with mild history of diabetes recently admitted for right lower extremity cellulitis currently on antibiotics sent in by Dr. Manriquez for worsening cellulitis. The patient has had persistent and worsening cellulitis despite taking oral antibiotics. Denies fevers or chills. Patient had a routine visit by his infectious disease specialist and sent the patient to be admitted. Blood work obtained including cultures. Patient initiated on vancomycin and Zosyn. Case discussed with Dr. Wylie, who accepted the patient to med/surg admission. Case discussed in detail with admitting physician including history, physical exam and ancillary studies. Admitting physician has assumed care for the patient, will follow all pending diagnostics and will complete the evaluation and treatment. <Suresh Tena - Last Filed: 03/23/17 20:40> *DC/Admit/Observation/Transfer - Discharge Dispostion Admit: Yes <Suresh Tena - Last Filed: 03/23/17 20:40> - Attestations Scribe Attestion: 03/23/17 21:20 Documentation prepared by Kalin Carpenter, acting as medical assistant cardiology for Suresh Tena MD. <Kalin Carpenter - Last Filed: 03/23/17 21:32> Diagnosis at time of Disposition: Cellulitis Qualifiers: Site of cellulitis: extremity Site of cellulitis of extremity: lower extremity Laterality: right Qualified Code(s): L03.115 - Cellulitis of right lower limb - Discharge Dispostion Condition at time of disposition: Stable - Referrals Referrals: Reyna Manriquez MD [Staff Physician] - - Patient Instructions - Post Discharge Activity
[2017-03-23 22:55] VITALS: BMI 22.3
--- NOTE | 2017-03-23 23:06 | HP ---
Admitting History and Physical - Primary Care Physician PCP: Dhruv Wylie - Admission Chief Complaint: R foot pain and swelling History of Present Illness: 57 year old male, with a significant past medical history of diabetes mellitus, who presents to the emergency department with, a skin infection on the lower right ankle for approx. 2 weeks. The patient reports he was recently admitted to [facility] for 1 weeks and diagnosed with a skin infection on the lower right ankle. The patient reports the swelling has decreased during the past week. However, he reports when he visited Dr. Manriquez yesterday for a follow up he was advised to come back to the ED today for evaluation. The patient reports he has been compliant with the prescribed antibiotics for the lower right ankle skin infection (patient is unsure of the name of the antibiotics). - Past Medical History Endocrine: Yes: Diabetes Mellitus - Smoking History Smoking history: Never smoked Have you smoked in the past 12 months: No Aproximately how many cigarettes per day: 0 - Alcohol/Substance Use Hx Alcohol Use: No History of Substance Use: reports: None - Social History ADL: Independent History of Recent Travel: No Home Medications - Allergies Allergies/Adverse Reactions: Allergies Allergy/AdvReac Type Severity Reaction Status Date / Time No Known Allergies Allergy Verified 03/23/17 16:50 - Home Medications Home Medications: Ambulatory Orders Metformin HCl [Glucophage -] 500 mg PO BIDAC #60 tablet 03/13/17 Family Disease History - Family Disease History Family Disease History: Diabetes: Mother Physical Examination Vital Signs: Vital Signs Temperature 97.9 F 03/23/17 22:00 Pulse Rate 74 03/23/17 22:00 Respiratory Rate 18 03/23/17 22:00 Blood Pressure 136/78 03/23/17 22:00 O2 Sat by Pulse Oximetry (%) 100 03/23/17 16:51 Constitutional: Yes: No Distress HENT: Yes: Atraumatic Neck: Yes: Supple Cardiovascular: Yes: Regular Rate and Rhythm Respiratory: Yes: CTA Bilaterally Gastrointestinal: Yes: Normal Bowel Sounds Extremities: Yes: Other (R foot swollen and tender) Neurological: Yes: Alert, Oriented Labs: CBC, BMP 03/23/17 17:31 03/23/17 17:31 Problem List - Problems (1) Cellulitis Assessment/Plan: on iv abx id and podiatry consult Code(s): L03.90 - CELLULITIS, UNSPECIFIED Qualifiers: Site of cellulitis: extremity Site of cellulitis of extremity: lower extremity Laterality: right Qualified Code(s): L03.115 - Cellulitis of right lower limb (2) Diabetes Assessment/Plan: on po meds bgms Code(s): E11.9 - TYPE 2 DIABETES MELLITUS WITHOUT COMPLICATIONS Assessment/Plan Laboratory Tests 03/23/17 03/23/17 03/23/17 17:31 17:31 17:31 WBC 5.7 D RBC 4.31 Hgb 12.4 Hct 36.9 MCV 85.6 MCH 28.7 MCHC 33.5 RDW 13.6 Plt Count 432 D MPV 7.4 L Neutrophils % 64.1 Lymphocytes % 24.7 D Monocytes % 8.0 Eosinophils % 2.5 D Basophils % 0.7 D PT with INR 12.40 H INR 1.10 PTT (Actin FS) 36.4 H Sodium 137 Potassium 4.3 Chloride 102 Carbon Dioxide 32 Anion Gap 3 L BUN 14 D Creatinine 1.0 D Creat Clearance w eGFR > 60 Random Glucose 287 H D Lactic Acid Calcium 8.6 Total Bilirubin 0.3 D AST 7 L D ALT 16 Alkaline Phosphatase 134 H D Total Protein 7.5 Albumin 3.3 L D 03/23/17 03/23/17 17:31 19:40 WBC RBC Hgb Hct MCV MCH MCHC RDW Plt Count MPV Neutrophils % Lymphocytes % Monocytes % Eosinophils % Basophils % PT with INR INR PTT (Actin FS) Sodium Potassium Chloride Carbon Dioxide Anion Gap BUN Creatinine Creat Clearance w eGFR Random Glucose Lactic Acid 1.1 1.0 Calcium Total Bilirubin AST ALT Alkaline Phosphatase Total Protein Albumin Active Medications Generic Name Dose Route Start Last Admin Trade Name Freq PRN Reason Stop Dose Admin Acetaminophen 650 mg 03/23/17 23:08 Tylenol - PO Q6H PRN FEVER Piperacillin Sod/Tazobactam 100 mls @ 200 mls/hr 03/24/17 12:30 Sod 3.375 gm/ Dextrose IVPB Q8H-IV MARIELENA Protocol Metformin HCl 500 mg 03/24/17 07:00 03/24/17 06:03 Glucophage - PO 500 mg BIDAC MARIELENA Administration
[2017-03-23] MEDS ORDERED: ACETAMINOPHEN 325 MG TABLET (FP) PO PRN (23:08)
[2017-03-24] MEDS: metFORMIN HCL 500 MG TABLET (FP) PO SCH ×2 (06:03→17:01)
--- NOTE | 2017-03-24 12:19 | CON.ID ---
Consult Consult Specialty:: infectious diseases Reason for Consultation:: cellulitis and collection of rt ankle - History of Present Illness Chief Complaint: pain adn swelling of the rt ankle History of Present Illness: this patient well known to me from the previous admission admitted for pretty bad cellulitits of the rt foot was treated with abx and was discharged on oral abx patient went home and was taking oral abx when he noticed that pain started increasing and patient was not able to bear weight on that leg then he noticed that there was swelling at the ankle patient went to his primary care and was send to the hospital with suspicion of abscess currently patient is comfortable but still with pain patient is on compliant diabetes - History Source History Provided By: Patient Limitations to Obtaining History: No Limitations - Past Medical History Endocrine: Yes: Diabetes Mellitus - Alcohol/Substance Use Hx Alcohol Use: No History of Substance Use: reports: None - Smoking History Smoking history: Never smoked Have you smoked in the past 12 months: No Aproximately how many cigarettes per day: 0 - Social History Usual Living Arrangement: With Spouse ADL: Independent History of Recent Travel: No Home Medications - Allergies Allergies/Adverse Reactions: Allergies Allergy/AdvReac Type Severity Reaction Status Date / Time No Known Allergies Allergy Verified 03/23/17 16:50 - Home Medications Home Medications: Ambulatory Orders Metformin HCl [Glucophage -] 500 mg PO BIDAC #60 tablet 03/13/17 Family Disease History - Family Disease History Family Disease History: Diabetes: Mother Review of Systems - Review of Systems Constitutional: reports: No Symptoms Eyes: reports: No Symptoms HENT: reports: No Symptoms Neck: reports: No Symptoms Cardiovascular: reports: No Symptoms Respiratory: reports: No Symptoms Gastrointestinal: reports: No Symptoms Integumentary: reports: Erythema (of the rt ankle) Neurological: reports: No Symptoms Endocrine: reports: No Symptoms Hematology/Lymphatic: reports: No Symptoms Psychiatric: reports: No Symptoms Physical Exam Vital Signs: Vital Signs Temperature 98.2 F 03/24/17 08:35 Pulse Rate 84 03/24/17 08:35 Respiratory Rate 18 03/24/17 08:35 Blood Pressure 126/80 03/24/17 08:35 O2 Sat by Pulse Oximetry (%) 100 03/23/17 16:51 Constitutional: Yes: Well Nourished, Calm, Mild Distress Eyes: Yes: Conjunctiva Clear Cardiovascular: Yes: Regular Rate and Rhythm Respiratory: Yes: Regular, CTA Bilaterally Gastrointestinal: Yes: Normal Bowel Sounds, Soft Musculoskeletal: Yes: Other Extremities: Yes: Erythema, Other (fluctuation noted around the ankle--probably abscess or phlegmon) Neurological: Yes: Alert, Oriented Psychiatric: Yes: Alert, Oriented Labs: CBC, BMP 03/23/17 17:31 03/23/17 17:31 Imaging - Results Chest X-ray: Report Reviewed, Image Reviewed X-ray: Report Reviewed, Image Reviewed Ultrasound: Report Reviewed, Image Reviewed Assessment/Plan patient treated for cellulitits of the foot now coming with localized collection - Problems (1) Cellulitis Code(s): L03.90 - CELLULITIS, UNSPECIFIED Qualifiers: Site of cellulitis: extremity Site of cellulitis of extremity: lower extremity Laterality: right Qualified Code(s): L03.115 - Cellulitis of right lower limb (2) Diabetes Code(s): E11.9 - TYPE 2 DIABETES MELLITUS WITHOUT COMPLICATIONS collection in the ankle site plan will continue zosyn will d/w with surgery/podiatry rest as per primary team elevation of the leg
[2017-03-24] MEDS ORDERED: PIPERACILLIN/TAZOB 3.375 GM 3.375 GM in DEXTROSE 5%-WATER - 50 ML IVPB SCH (12:30)
--- NOTE | 2017-03-24 13:26 | PN ---
Progress Note, Physician - Current Medication List Current Medications: Active Medications Acetaminophen (Tylenol -) 650 mg PO Q6H PRN PRN Reason: FEVER Piperacillin Sod/Tazobactam (Sod 3.375 gm/ Dextrose) 100 mls @ 200 mls/hr IVPB Q8H-IV MARIELENA PRN Reason: Protocol Metformin HCl (Glucophage -) 500 mg PO BIDAC MARIELENA Last Admin: 03/24/17 06:03 Dose: 500 mg - Objective Vital Signs: Vital Signs Temperature 98.2 F 03/24/17 08:35 Pulse Rate 84 03/24/17 08:35 Respiratory Rate 18 03/24/17 08:35 Blood Pressure 126/80 03/24/17 08:35 O2 Sat by Pulse Oximetry (%) 100 03/23/17 16:51 HENT: Yes: Atraumatic Cardiovascular: Yes: Regular Rate and Rhythm Respiratory: Yes: CTA Bilaterally Gastrointestinal: Yes: Normal Bowel Sounds Extremities: Yes: Other (R foot swollen) Neurological: Yes: Alert, Oriented Labs: CBC, BMP 03/23/17 17:31 03/23/17 17:31 INR, PTT INR 1.10 (0.82-1.09) 03/23/17 17:31 Problem List - Problems (1) Cellulitis Assessment/Plan: on iv abx id and podiatry consult Code(s): L03.90 - CELLULITIS, UNSPECIFIED Qualifiers: Site of cellulitis: extremity Site of cellulitis of extremity: lower extremity Laterality: right Qualified Code(s): L03.115 - Cellulitis of right lower limb (2) Diabetes Assessment/Plan: on po meds bgms Code(s): E11.9 - TYPE 2 DIABETES MELLITUS WITHOUT COMPLICATIONS
[2017-03-24] MEDS ORDERED: PT OWN MED DRAWER 7, Y5N ONE (16:57)
[2017-03-24] MEDS: PIPERACILLIN/TAZOB 3.375 GM 3.375 GM in DEXTROSE 5%-WATER - 100 ML IVPB SCH (17:01)
[2017-03-25] MEDS: PIPERACILLIN/TAZOB 3.375 GM 3.375 GM in DEXTROSE 5%-WATER - 100 ML IVPB SCH ×3 (01:06→19:04)
[2017-03-25] MEDS: metFORMIN HCL 500 MG TABLET (FP) PO SCH ×2 (06:00→18:02)
[2017-03-25] MEDS ORDERED: PT OWN MED DRAWER 7, Y5N ONE ×3 (10:15→18:08)
--- NOTE | 2017-03-25 12:40 | PN ---
Progress Note, Physician History of Present Illness: Pt seen and examined. Events noted, results noted. Pt states he feels well today. Has some discomfort in Rt medial ankle region but no other specific complaints. - Current Medication List Current Medications: Active Medications Acetaminophen (Tylenol -) 650 mg PO Q6H PRN PRN Reason: FEVER Piperacillin Sod/Tazobactam (Sod 3.375 gm/ Dextrose) 100 mls @ 200 mls/hr IVPB Q8H-IV MARIELENA PRN Reason: Protocol Last Admin: 03/25/17 10:18 Dose: 200 mls/hr Metformin HCl (Glucophage -) 500 mg PO BIDAC MARIELENA Last Admin: 03/25/17 06:00 Dose: 500 mg - Objective Vital Signs: Vital Signs Temperature 97.8 F 03/25/17 05:47 Pulse Rate 80 03/25/17 05:47 Respiratory Rate 20 03/25/17 05:47 Blood Pressure 123/70 03/25/17 05:47 O2 Sat by Pulse Oximetry (%) 98 03/24/17 21:00 Constitutional: Yes: No Distress, Calm HENT: Yes: WNL Neck: Yes: WNL Cardiovascular: Yes: Regular Rate and Rhythm Respiratory: Yes: CTA Bilaterally Gastrointestinal: Yes: Normal Bowel Sounds, Soft Genitourinary: Yes: WNL Extremities: Yes: Other (Rt medial ankle mild swelling/fluctuation no surrounding erythema/warmth/tenderness) Neurological: Yes: Alert, Oriented Labs: CBC, BMP 03/23/17 17:31 03/23/17 17:31 INR, PTT INR 1.10 (0.82-1.09) 03/23/17 17:31 - ....Imaging X-ray: Report Reviewed (soft tissue swelling Rt ant ankle) Problem List - Problems (1) Cellulitis Code(s): L03.90 - CELLULITIS, UNSPECIFIED Qualifiers: Site of cellulitis: extremity Site of cellulitis of extremity: lower extremity Laterality: right Qualified Code(s): L03.115 - Cellulitis of right lower limb (2) Diabetes Code(s): E11.9 - TYPE 2 DIABETES MELLITUS WITHOUT COMPLICATIONS Assessment/Plan 57 y.o. diabetic recently treated for severe cellulitis of Rt ankle/foot with persistent edema/fluctuance in Rt medial ankle region -- case d/w podiatry who will see patient -- cont. antibiotics for now
--- NOTE | 2017-03-25 14:04 | CONSULT ---
Consult - text type - Consultation Consultation Note: Podiatry Consultation: Pleasant 57 year old NIDDM M presents for admission by Dr. Manriquez Infectious Disease for cellulitis, possible collection anterior ankle R. Patient notes redness to the ankle since 03/09. Trialed with PO abx, which improved symptoms, however the redness recurred with associated swelling to the ankle. Denies F/V/ N/C/SOB/CP. Denies acute trauma to the ankle, however notes rubbing of his shoegear against the ankle. Sugars well controlled. PMHx: NIDDM Meds: noted ALL: NKMA NARCISO: R foot/ankle: pedal pulses palpable, TG wnl, CFT brisk to all toes. There is ill -defined swelling over the anteromedial aspect of the ankle, along the course of the anterior tibial tendon insertion. There is hyperpigmentation surrounding the swelling. Ascending cellulitis has resolved. There is no open wound, no drainage, moderate fluctuance, no streaking cellulitis, no soft tissue crepitus. WBC: 5.7 Blood Cx: no growth R ankle XR: no radiographic evidence of OM, ST swelling R ankle ultrasound: ill defined swelling, no drainable collection Imp: 57 year old DM M with R ankle swelling/cellulitis, rule out abscess collection vs. cystic collection 1. IV abx per ID 2. I had a thorough discussion with the patient regarding treatment options and condition. He would prefer not to have I&D procedure. I have advised obtaining further imaging, MRI with contrast, to evaluate. Strong suspicion for ganglion cyst, however MRI will tell us more. 3. Will follow. Thank you for the courtesy of this consultation. Zina Rivers DPM
--- NOTE | 2017-03-25 18:59 | PN ---
Progress Note, Physician History of Present Illness: no complaints - Current Medication List Current Medications: Active Medications Acetaminophen (Tylenol -) 650 mg PO Q6H PRN PRN Reason: FEVER Piperacillin Sod/Tazobactam (Sod 3.375 gm/ Dextrose) 100 mls @ 200 mls/hr IVPB Q8H-IV MARIELENA PRN Reason: Protocol Last Admin: 03/25/17 10:18 Dose: 200 mls/hr Metformin HCl (Glucophage -) 500 mg PO BIDAC MARIELENA Last Admin: 03/25/17 18:02 Dose: 500 mg - Objective Vital Signs: Vital Signs Temperature 97.9 F 03/25/17 17:36 Pulse Rate 69 03/25/17 17:36 Respiratory Rate 20 03/25/17 17:36 Blood Pressure 128/88 03/25/17 17:36 O2 Sat by Pulse Oximetry (%) 98 03/24/17 21:00 Constitutional: Yes: No Distress HENT: Yes: Atraumatic Neck: Yes: Supple Cardiovascular: Yes: Regular Rate and Rhythm Respiratory: Yes: CTA Bilaterally Gastrointestinal: Yes: Normal Bowel Sounds Extremities: Yes: Other (r foot swollen) Neurological: Yes: Alert, Oriented Labs: CBC, BMP 03/23/17 17:31 03/23/17 17:31 INR, PTT INR 1.10 (0.82-1.09) 03/23/17 17:31 Problem List - Problems (1) Cellulitis Assessment/Plan: on iv abx id and podiatry consult noted mri foot done...report pending Code(s): L03.90 - CELLULITIS, UNSPECIFIED Qualifiers: Site of cellulitis: extremity Site of cellulitis of extremity: lower extremity Laterality: right Qualified Code(s): L03.115 - Cellulitis of right lower limb (2) Diabetes Assessment/Plan: on po meds bgms Code(s): E11.9 - TYPE 2 DIABETES MELLITUS WITHOUT COMPLICATIONS
[2017-03-26] MEDS ORDERED: PT OWN MED DRAWER 7, Y5N ONE ×3 (01:36→21:13)
[2017-03-26] MEDS: PIPERACILLIN/TAZOB 3.375 GM 3.375 GM in DEXTROSE 5%-WATER - 100 ML IVPB SCH ×3 (01:51→18:13)
[2017-03-26] MEDS: metFORMIN HCL 500 MG TABLET (FP) PO SCH ×2 (06:27→17:43)
--- NOTE | 2017-03-26 14:52 | PN ---
Progress Note, Physician History of Present Illness: Pt states he feels well. Sometimes experiences a bit of shocklike pain in Rt foot but no severe distress. Remains afebrile, tolerating antibiotic. - Current Medication List Current Medications: Active Medications Acetaminophen (Tylenol -) 650 mg PO Q6H PRN PRN Reason: FEVER Piperacillin Sod/Tazobactam (Sod 3.375 gm/ Dextrose) 100 mls @ 200 mls/hr IVPB Q8H-IV MARIELENA PRN Reason: Protocol Last Admin: 03/26/17 10:19 Dose: 200 mls/hr Metformin HCl (Glucophage -) 500 mg PO BIDAC MARIELENA Last Admin: 03/26/17 06:27 Dose: 500 mg - Objective Vital Signs: Vital Signs Temperature 98.2 F 03/26/17 10:00 Pulse Rate 82 03/26/17 10:00 Respiratory Rate 18 03/26/17 13:25 Blood Pressure 124/74 03/26/17 10:00 O2 Sat by Pulse Oximetry (%) 98 03/24/17 21:00 Constitutional: Yes: No Distress Cardiovascular: Yes: Regular Rate and Rhythm Respiratory: Yes: CTA Bilaterally Gastrointestinal: Yes: Normal Bowel Sounds, Soft Genitourinary: Yes: WNL Extremities: Yes: Other (Rt ankle mild fluctuation/tenderness in anterior portion, no surrounding erythema/warmth) Labs: CBC, BMP 03/23/17 17:31 03/23/17 17:31 INR, PTT INR 1.10 (0.82-1.09) 03/23/17 17:31 - ....Imaging MRI: Report Reviewed (Rt ankle 2.1 x 2.3 cm collection with surrounding soft tissue swelling) Problem List - Problems (1) Cellulitis Code(s): L03.90 - CELLULITIS, UNSPECIFIED Qualifiers: Site of cellulitis: extremity Site of cellulitis of extremity: lower extremity Laterality: right Qualified Code(s): L03.115 - Cellulitis of right lower limb (2) Diabetes Code(s): E11.9 - TYPE 2 DIABETES MELLITUS WITHOUT COMPLICATIONS (3) Abscess or cellulitis of ankle Code(s): [id number] - Assessment/Plan 57 y.o. diabetic recently treated for severe cellulitis of Rt ankle/foot with persistent edema/fluctuance in Rt medial ankle region Rt foot/ankle abscess - soft tissue edema and ant. Rt ankle collection on MRI -- cont. antibiotics for now -- Podiatry f/u to decide on I+D pt currently stable
--- NOTE | 2017-03-26 18:32 | PN ---
Progress Note, Physician History of Present Illness: no complaints - Current Medication List Current Medications: Active Medications Acetaminophen (Tylenol -) 650 mg PO Q6H PRN PRN Reason: FEVER Piperacillin Sod/Tazobactam (Sod 3.375 gm/ Dextrose) 100 mls @ 200 mls/hr IVPB Q8H-IV MARIELENA PRN Reason: Protocol Last Admin: 03/26/17 18:13 Dose: 200 mls/hr Metformin HCl (Glucophage -) 500 mg PO BIDAC MARIELENA Last Admin: 03/26/17 17:43 Dose: 500 mg - Objective Vital Signs: Vital Signs Temperature 98.2 F 03/26/17 10:00 Pulse Rate 82 03/26/17 10:00 Respiratory Rate 18 03/26/17 13:25 Blood Pressure 124/74 03/26/17 10:00 O2 Sat by Pulse Oximetry (%) 98 03/24/17 21:00 Constitutional: Yes: No Distress HENT: Yes: Atraumatic Neck: Yes: Supple Cardiovascular: Yes: Regular Rate and Rhythm Respiratory: Yes: CTA Bilaterally Gastrointestinal: Yes: Normal Bowel Sounds Extremities: Yes: Other (r foot swollen ,) Neurological: Yes: Alert, Oriented Labs: CBC, BMP 03/23/17 17:31 03/23/17 17:31 INR, PTT INR 1.10 (0.82-1.09) 03/23/17 17:31 Problem List - Problems (1) Cellulitis Assessment/Plan: on iv abx id and podiatry consult noted mri foot done...report pending Code(s): L03.90 - CELLULITIS, UNSPECIFIED Qualifiers: Site of cellulitis: extremity Site of cellulitis of extremity: lower extremity Laterality: right Qualified Code(s): L03.115 - Cellulitis of right lower limb (2) Diabetes Assessment/Plan: on po meds bgms Code(s): E11.9 - TYPE 2 DIABETES MELLITUS WITHOUT COMPLICATIONS
[2017-03-27] MEDS: PIPERACILLIN/TAZOB 3.375 GM 3.375 GM in DEXTROSE 5%-WATER - 100 ML IVPB SCH ×3 (01:47→18:10)
[2017-03-27] MEDS: metFORMIN HCL 500 MG TABLET (FP) PO SCH ×2 (06:12→18:10)
[2017-03-27 07:40] LABS: BASO % 0.6 % (0-2.0); EOS % 3.6 % (0-4.5); HEMATOCRIT 38.4 % (35.4-49); LYMPH % 34.4 % (8-40); MCH 28.6 pg (25.7-33.7); MCHC 33.8 g/dl (32.0-35.9); MEAN CELL VOLUME 84.5 fl (80-96); MEAN PLT VOLUME 7.8 fl (7.5-11.1); MONO % 11.3 % (3.8-10.2); NEUT % 50.1 % (42.8-82.8); PLATELET COUNT 292 K/MM3 (134-434); RBC 4.54 M/mm3 (4.00-5.60); RDW 13.4 % (11.9-15.9)
[2017-03-27 08:17] LABS: ALBUMIN 3.1 g/dl (3.4-5.0); ANION GAP 10 (8-16); BLOOD UREA NITROGEN 14 mg/dL (7-18); CALCIUM 9.3 mg/dL (8.5-10.1); CHLORIDE 100 mmol/L (98-107); CO2 27 mmol/L (21-32); POTASSIUM 4.3 mmol/L (3.5-5.1); SODIUM 137 mmol/L (136-145)
[2017-03-27 08:23] LABS: ALK PHOS 111 U/L (45-117); BILIRUBIN,TOTAL 0.5 mg/dL (0.2-1.0); CREATININE 0.7 mg/dL (0.7-1.3); GLUCOSE,RANDOM 212 mg/dL (74-106); SGOT/AST 6 U/L (15-37); SGPT/ALT 12 U/L (12-78); TOT PROT 7.2 g/dl (6.4-8.2)
[2017-03-27] MEDS ORDERED: PT OWN MED DRAWER 7, Y5N ONE (10:52)
--- NOTE | 2017-03-27 11:12 | PN ---
Progress Note, Physician History of Present Illness: patient stable doing well podiatry following the patient - Current Medication List Current Medications: Active Medications Acetaminophen (Tylenol -) 650 mg PO Q6H PRN PRN Reason: FEVER Piperacillin Sod/Tazobactam (Sod 3.375 gm/ Dextrose) 100 mls @ 200 mls/hr IVPB Q8H-IV MARIELENA PRN Reason: Protocol Last Admin: 03/27/17 10:56 Dose: 200 mls/hr Metformin HCl (Glucophage -) 500 mg PO BIDAC MARIELENA Last Admin: 03/27/17 06:12 Dose: 500 mg - Objective Vital Signs: Vital Signs Temperature 98 F 03/27/17 06:21 Pulse Rate 75 03/27/17 06:21 Respiratory Rate 20 03/27/17 06:21 Blood Pressure 125/79 03/27/17 06:21 O2 Sat by Pulse Oximetry (%) 98 03/24/17 21:00 Constitutional: Yes: No Distress, Calm Cardiovascular: Yes: Regular Rate and Rhythm Respiratory: Yes: Regular, CTA Bilaterally Gastrointestinal: Yes: Normal Bowel Sounds, Soft Musculoskeletal: Yes: WNL Extremities: Yes: Other (collection around the ankle superficial) Neurological: Yes: Alert, Oriented Psychiatric: Yes: Alert, Oriented Labs: CBC, BMP 03/27/17 06:00 03/27/17 06:00 INR, PTT INR 1.10 (0.82-1.09) 03/23/17 17:31 - ....Imaging MRI: Report Reviewed, Image Reviewed Assessment/Plan patient mentions that he now can walk on the foot - Problems (1) Cellulitis Code(s): L03.90 - CELLULITIS, UNSPECIFIED Qualifiers: Site of cellulitis: extremity Site of cellulitis of extremity: lower extremity Laterality: right Qualified Code(s): L03.115 - Cellulitis of right lower limb (2) Diabetes Code(s): E11.9 - TYPE 2 DIABETES MELLITUS WITHOUT COMPLICATIONS collection in the ankle site plan continue abx await for podiatry plan rest as per primary team
--- NOTE | 2017-03-27 19:19 | PN ---
Progress Note, Physician History of Present Illness: no complaints - Current Medication List Current Medications: Active Medications Acetaminophen (Tylenol -) 650 mg PO Q6H PRN PRN Reason: FEVER Heparin Sodium (Porcine) (Heparin -) 5,000 unit SQ BID MARIELENA Piperacillin Sod/Tazobactam (Sod 3.375 gm/ Dextrose) 100 mls @ 200 mls/hr IVPB Q8H-IV MARIELENA PRN Reason: Protocol Last Admin: 03/27/17 18:10 Dose: 200 mls/hr Metformin HCl (Glucophage -) 500 mg PO BIDAC MARIELENA Last Admin: 03/27/17 18:10 Dose: 500 mg - Objective Vital Signs: Vital Signs Temperature 97.9 F 03/27/17 16:20 Pulse Rate 87 03/27/17 16:20 Respiratory Rate 20 03/27/17 16:20 Blood Pressure 125/68 03/27/17 16:20 O2 Sat by Pulse Oximetry (%) 99 03/27/17 09:00 Constitutional: Yes: No Distress HENT: Yes: Atraumatic Neck: Yes: Supple Cardiovascular: Yes: Regular Rate and Rhythm Respiratory: Yes: CTA Bilaterally Gastrointestinal: Yes: Normal Bowel Sounds Extremities: Yes: Other (r foot cellulitis/swelling) Neurological: Yes: Alert, Oriented Labs: CBC, BMP 03/27/17 06:00 03/27/17 06:00 INR, PTT INR 1.10 (0.82-1.09) 03/23/17 17:31 Problem List - Problems (1) Cellulitis Assessment/Plan: on iv abx id and podiatry consult Code(s): L03.90 - CELLULITIS, UNSPECIFIED Qualifiers: Site of cellulitis: extremity Site of cellulitis of extremity: lower extremity Laterality: right Qualified Code(s): L03.115 - Cellulitis of right lower limb (2) Diabetes Assessment/Plan: on po meds bgms Code(s): E11.9 - TYPE 2 DIABETES MELLITUS WITHOUT COMPLICATIONS
[2017-03-27] MEDS: HEPARIN NA (PORCINE) 5,000 UNITS/ML 1ML VIAL SQ SCH (21:25)
[2017-03-27] MEDS: INSULIN SLIDING SCALE (NOVOLOG) 1 VIAL SQ SCH (21:26)
[2017-03-28] MEDS: PIPERACILLIN/TAZOB 3.375 GM 3.375 GM in DEXTROSE 5%-WATER - 100 ML IVPB SCH ×3 (01:24→16:58)
[2017-03-28] MEDS: metFORMIN HCL 500 MG TABLET (FP) PO SCH ×2 (06:10→16:59)
[2017-03-28] MEDS: INSULIN SLIDING SCALE (NOVOLOG) 1 VIAL SQ SCH ×4 (06:10→21:34)
--- NOTE | 2017-03-28 09:01 | PN ---
Progress Note (short form) - Note Progress Note: Podiatry: Seen/evaluated at bedside, NAD. Pain to R foot/ankle anteriorly controlled, denies F/V/N/C/SOB/CP. Afebrile, VSS. NARCISO: R foot: pedal pulses palpable, TG wnl, CFT brisk to all toes. Fluctuant area anterior aspect of foot and ankle with mild tenderness elicited on palpation, no purulent drainage, ascending cellulitis resolved, post-inflammatory hyperpigmentation surrounding area. No soft tissue crepitus. MRI w/wo contrast: suggestive of abscess just medial to tibialis anterior tendon; negative for OM Imp: 57 year old DM M with R foot abscess 1. IV abx per ID 2. Discussed risks, benefits, alternatives to surgery with patient at length. Plan for incision and drainage R foot in OR. Patient amenable for planned procedure. 3. Will obtain OR cultures. Will follow. Zina Rivers DPM
[2017-03-28] MEDS: HEPARIN NA (PORCINE) 5,000 UNITS/ML 1ML VIAL SQ SCH ×2 (09:39→21:35)
[2017-03-28] MEDS ORDERED: PT OWN MED DRAWER 7, Y5N ONE ×3 (09:42→17:42)
[2017-03-28] MEDS ORDERED: PROPOFOL 20 ML ONE (12:19)
[2017-03-28] MEDS ORDERED: MIDAZOLAM HCL 2 MG/2 ML SINGLE DOSE VIAL ONE (12:20)
[2017-03-28] MEDS ORDERED: LIDOCAINE HCL 2% (20ML MULTI-DOSE VIAL) NR ONE (12:34)
[2017-03-28] MEDS ORDERED: ceFAZolin SODIUM 1 GM VIAL IVPB ONE (13:18)
[2017-03-28] MEDS ORDERED: ceFAZolin SODIUM 1 GM VIAL ONE (13:19)
[2017-03-28] MEDS: BUPIVACAINE HCL/PF 0.5% (5MG/ML) 10 ML VIAL ONE ×2 (13:52→14:11)
--- NOTE | 2017-03-28 14:20 | OP ---
Operative Note - Note: Operative Date: 03/28/17 Pre-Operative Diagnosis: Right foot abscess vs. cyst Operation: Right foot incision and drainage Findings: see op note Post-Operative Diagnosis: Same as Pre-op Surgeon: Jere Rivers Anesthesia: Local, MAC Specimens Removed: soft tissue, right foot Estimated Blood Loss (mls): 20 Operative Report Dictated: Yes
[2017-03-28] MEDS ORDERED: oxyCODONE HCL 5 MG TABLET PO PRN (14:25)
--- NOTE | 2017-03-28 14:30 | PN ---
Progress Note, Physician History of Present Illness: patient stable post op - Current Medication List Current Medications: Active Medications Acetaminophen (Tylenol -) 650 mg PO Q6H PRN PRN Reason: FEVER Fentanyl (Sublimaze Injection -) 25 mcg IVPUSH [id number] PRN PRN Reason: PAIN-PACU ORDER X 4 DOSES ONLY Heparin Sodium (Porcine) (Heparin -) 5,000 unit SQ BID [facility] Last Admin: 03/28/17 09:39 Dose: Not Given Piperacillin Sod/Tazobactam (Sod 3.375 gm/ Dextrose) 100 mls @ 200 mls/hr IVPB Q8H-IV MARIELENA PRN Reason: Protocol Last Admin: 03/28/17 09:53 Dose: 200 mls/hr Insulin Aspart (Novolog Vial Sliding Scale -) 1 vial SQ ACHS MARIELENA PRN Reason: Protocol Last Admin: 03/28/17 11:43 Dose: Not Given Metformin HCl (Glucophage -) 500 mg PO BIDAC [facility] Last Admin: 03/28/17 06:10 Dose: Not Given Oxycodone HCl (Roxicodone -) 5 mg PO Q4H PRN PRN Reason: PAIN LEVEL 1-5 - Objective Vital Signs: Vital Signs Temperature 98 F 03/28/17 09:34 Pulse Rate 87 03/28/17 09:34 Respiratory Rate 20 03/28/17 09:34 Blood Pressure 115/72 03/28/17 09:34 O2 Sat by Pulse Oximetry (%) 97 03/28/17 09:00 Constitutional: Yes: No Distress, Calm Cardiovascular: Yes: Regular Rate and Rhythm Respiratory: Yes: Regular, CTA Bilaterally Gastrointestinal: Yes: Normal Bowel Sounds, Soft Musculoskeletal: Yes: WNL Extremities: Yes: WNL Wound/Incision: Yes: Dressing Dry and Intact Neurological: Yes: Alert, Oriented Labs: CBC, BMP 03/27/17 06:00 03/27/17 06:00 INR, PTT INR 1.10 (0.82-1.09) 03/23/17 17:31 Assessment/Plan patient mentions that he now can walk on the foot - Problems (1) Cellulitis Code(s): L03.90 - CELLULITIS, UNSPECIFIED Qualifiers: Site of cellulitis: extremity Site of cellulitis of extremity: lower extremity Laterality: right Qualified Code(s): L03.115 - Cellulitis of right lower limb (2) Diabetes Code(s): E11.9 - TYPE 2 DIABETES MELLITUS WITHOUT COMPLICATIONS collection in the ankle site plan continue abx await for cx report
[2017-03-28] MEDS ORDERED: ACETAMINOPHEN 325 MG TABLET (FP) PO PRN (14:49)
[2017-03-28] MEDS ORDERED: PIPERACIL/TAZOB 3.375 GM 3.375 GM/50 ML PREMIX IVPB ONE (14:49)
--- NOTE | 2017-03-28 15:05 | OP ---
DATE OF OPERATION: 03/28/2017 PREOPERATIVE DIAGNOSIS: Right foot abscess versus cyst. POSTOPERATIVE DIAGNOSIS: Right foot abscess versus cyst. PROCEDURE: Right foot incision and drainage. SURGEON: Jere Rivers DPM FRUIT SPRAYER: None. HEMOSTASIS: Pneumatic ankle tourniquet. ESTIMATED BLOOD LOSS: 20 mL PATHOLOGY: Right foot. ANESTHESIA: IV sedation with local. COMPLICATIONS: None. DESCRIPTION OF PROCEDURE: Patient was brought to the operating room and placed on the operating table in the supine position. I applied a pneumatic ankle tourniquet to the patient's right ankle and set it to 250 mmHg. Following the induction of IV sedation, local anesthesia was achieved utilizing 10 mL of 2% lidocaine plain. The right foot was scrubbed, prepped, and draped in the usual sterile fashion. The tourniquet was inflated. Attention was directed to the right dorsal medial rear foot where a fluctuant area along the course of the anterior tibial tendon was visualized and appreciated. I began by performing a 4-cm curvilinear incision overlying that fluctuant area. The incision was deepened using sharp and blunt dissection, taking care to retract vital neural and vascular structures. All bleeders were cauterized and ligated as appropriate. Deep to the subcutaneous tissues overlying the joint capsule and overlying the tendon sheath of the extensor tendon was a cystic lesion which could be a chronic loculated abscess versus a ganglionic cyst. The fluctuant area was carefully freed of its soft tissue attachments using a small dissecting scissor. Careful attention was made to attempt to free the cyst in whole. The cyst was subsequently removed from the operative field and sent to Pathology for analysis. An appropriate soft tissue culture was obtained. The surgical site was copiously irrigated with sterile saline. The subcutaneous tissues were loosely coapted using 4-0 Vicryl, and the skin was loosely coapted using 4-0 nylon. A small amount of 1/4-inch plain packing was implemented to avoid a space. Following the conclusion of the procedure, the incision was covered with Xeroform, and a sterile compressive dressing was applied to the right foot consisting of sterile gauze, Eva, Kerlix, and an Max wrap. Following the conclusion of the procedure, the surgical site was also infiltrated with 10 mL of 0.5% Marcaine plain for postoperative analgesia. The tourniquet was deflated and immediate hyperemia returned to the right foot. Patient tolerated the procedure and anesthesia well, without complications. He was transferred from the operating room to the recovery unit with vital signs stable and neurovasculature intact to the right foot. ESME VALLES/[id number]
--- NOTE | 2017-03-28 15:34 | PN ---
Progress Note, Physician - Current Medication List Current Medications: Active Medications Acetaminophen (Tylenol -) 650 mg PO Q6H PRN PRN Reason: FEVER Fentanyl (Sublimaze Injection -) 25 mcg IVPUSH [id number] PRN PRN Reason: PAIN-PACU ORDER X 4 DOSES ONLY Heparin Sodium (Porcine) (Heparin -) 5,000 unit SQ BID MARIE[facility] Piperacillin Sod/Tazobactam (Sod 3.375 gm/ Dextrose) 100 mls @ 200 mls/hr IVPB Q8H-IV MARIELENA PRN Reason: Protocol Piperacillin Sod/Tazobactam (Sod 3.375 gm/ Dextrose) 100 mls @ 200 mls/hr IVPB ONCE ONE Stop: 03/28/17 16:29 Insulin Aspart (Novolog Vial Sliding Scale -) 1 vial SQ ACHS MARIELENA PRN Reason: Protocol Metformin HCl (Glucophage -) 500 mg PO BIDAC MAIRELENA Oxycodone HCl (Roxicodone -) 5 mg PO Q4H PRN PRN Reason: PAIN LEVEL 1-5 - Objective Vital Signs: Vital Signs Temperature 97.8 F 03/28/17 15:29 Pulse Rate 72 03/28/17 15:29 Respiratory Rate 20 03/28/17 15:29 Blood Pressure 128/87 03/28/17 15:29 O2 Sat by Pulse Oximetry (%) 97 03/28/17 15:29 Constitutional: Yes: No Distress HENT: Yes: Atraumatic Neck: Yes: Supple Cardiovascular: Yes: Regular Rate and Rhythm Respiratory: Yes: CTA Bilaterally Gastrointestinal: Yes: Normal Bowel Sounds Extremities: Yes: Other (s/p I and D R foot) Neurological: Yes: Alert, Oriented Labs: CBC, BMP 03/27/17 06:00 03/27/17 06:00 INR, PTT INR 1.10 (0.82-1.09) 03/23/17 17:31 Problem List - Problems (1) Cellulitis Assessment/Plan: on iv abx s/p I and D Code(s): L03.90 - CELLULITIS, UNSPECIFIED Qualifiers: Site of cellulitis: extremity Site of cellulitis of extremity: lower extremity Laterality: right Qualified Code(s): L03.115 - Cellulitis of right lower limb (2) Diabetes Assessment/Plan: on po meds bgms Code(s): E11.9 - TYPE 2 DIABETES MELLITUS WITHOUT COMPLICATIONS
[2017-03-28] MEDS ORDERED: PIPERACILLIN/TAZOB 3.375 GM 3.375 GM in DEXTROSE 5%-WATER - 100 ML IVPB ONE (16:00)
[2017-03-28] MEDS ORDERED: INSULIN (NOVOLOG) ASPART 100 UNITS/ML 10ML VIAL ONE ×2 (16:56→17:23)
[2017-03-29] MEDS ORDERED: PT OWN MED DRAWER 7, Y5N ONE ×4 (02:06→16:47)
[2017-03-29] MEDS: PIPERACILLIN/TAZOB 3.375 GM 3.375 GM in DEXTROSE 5%-WATER - 100 ML IVPB SCH ×3 (02:30→17:17)
[2017-03-29] MEDS: INSULIN SLIDING SCALE (NOVOLOG) 1 VIAL SQ SCH ×4 (06:43→21:48)
[2017-03-29] MEDS: metFORMIN HCL 500 MG TABLET (FP) PO SCH ×2 (06:47→17:16)
[2017-03-29] MEDS: HEPARIN NA (PORCINE) 5,000 UNITS/ML 1ML VIAL SQ SCH ×2 (09:10→21:48)
--- NOTE | 2017-03-29 11:14 | PN ---
Progress Note, Physician - Current Medication List Current Medications: Active Medications Acetaminophen (Tylenol -) 650 mg PO Q6H PRN PRN Reason: FEVER Fentanyl (Sublimaze Injection -) 25 mcg IVPUSH [id number] PRN PRN Reason: PAIN-PACU ORDER X 4 DOSES ONLY Heparin Sodium (Porcine) (Heparin -) 5,000 unit SQ BID [facility] Last Admin: 03/29/17 09:10 Dose: 5,000 unit Piperacillin Sod/Tazobactam (Sod 3.375 gm/ Dextrose) 100 mls @ 200 mls/hr IVPB Q8H-IV MARIELENA PRN Reason: Protocol Last Admin: 03/29/17 09:11 Dose: 200 mls/hr Insulin Aspart (Novolog Vial Sliding Scale -) 1 vial SQ ACHS MARIELENA PRN Reason: Protocol Last Admin: 03/29/17 06:43 Dose: 6 units Metformin HCl (Glucophage -) 500 mg PO [facility]IDAC [facility] Last Admin: 03/29/17 06:47 Dose: 500 mg Oxycodone HCl (Roxicodone -) 5 mg PO Q4H PRN PRN Reason: PAIN LEVEL 1-5 - Objective Vital Signs: Vital Signs Temperature 98.2 F 03/29/17 09:09 Pulse Rate 92 H 03/29/17 09:09 Respiratory Rate 20 03/29/17 09:09 Blood Pressure 117/75 03/29/17 09:09 O2 Sat by Pulse Oximetry (%) 97 03/29/17 09:00 Constitutional: Yes: No Distress HENT: Yes: Atraumatic Neck: Yes: Supple Cardiovascular: Yes: Regular Rate and Rhythm Respiratory: Yes: CTA Bilaterally Gastrointestinal: Yes: Normal Bowel Sounds Extremities: Yes: Other (r foot in bandage) Neurological: Yes: Alert, Oriented Labs: CBC, BMP 03/27/17 06:00 03/27/17 06:00 INR, PTT INR 1.10 (0.82-1.09) 03/23/17 17:31 Problem List - Problems (1) Cellulitis Assessment/Plan: on iv abx s/p I and D Code(s): L03.90 - CELLULITIS, UNSPECIFIED Qualifiers: Site of cellulitis: extremity Site of cellulitis of extremity: lower extremity Laterality: right Qualified Code(s): L03.115 - Cellulitis of right lower limb (2) Diabetes Assessment/Plan: on po meds bgms Code(s): E11.9 - TYPE 2 DIABETES MELLITUS WITHOUT COMPLICATIONS
--- NOTE | 2017-03-29 11:18 | PN ---
Progress Note (short form) - Note Progress Note: Anesthesia postop note 57 y/o m s/p mac for i&d right foot pod31, vss, aaox3 no complaints No anesthesia complications.
[2017-03-29] MEDS ORDERED: INSULIN (NOVOLOG) ASPART 100 UNITS/ML 10ML VIAL ONE ×3 (12:01→17:24)
--- NOTE | 2017-03-29 14:33 | PN ---
Progress Note, Physician History of Present Illness: doing well leg in dressing - Current Medication List Current Medications: Active Medications Acetaminophen (Tylenol -) 650 mg PO Q6H PRN PRN Reason: FEVER Fentanyl (Sublimaze Injection -) 25 mcg IVPUSH [id number] PRN PRN Reason: PAIN-PACU ORDER X 4 DOSES ONLY Heparin Sodium (Porcine) (Heparin -) 5,000 unit SQ BID [facility] Last Admin: 03/29/17 09:10 Dose: 5,000 unit Piperacillin Sod/Tazobactam (Sod 3.375 gm/ Dextrose) 100 mls @ 200 mls/hr IVPB Q8H-IV MARIELENA PRN Reason: Protocol Last Admin: 03/29/17 09:11 Dose: 200 mls/hr Insulin Aspart (Novolog Vial Sliding Scale -) 1 vial SQ ACHS MARIELENA PRN Reason: Protocol Last Admin: 03/29/17 12:14 Dose: 6 units Metformin HCl (Glucophage -) 500 mg PO BIDAC [facility] Last Admin: 03/29/17 06:47 Dose: 500 mg Oxycodone HCl (Roxicodone -) 5 mg PO Q4H PRN PRN Reason: PAIN LEVEL 1-5 - Objective Vital Signs: Vital Signs Temperature 98.2 F 03/29/17 09:09 Pulse Rate 92 H 03/29/17 09:09 Respiratory Rate 20 03/29/17 09:09 Blood Pressure 117/75 03/29/17 09:09 O2 Sat by Pulse Oximetry (%) 97 03/29/17 09:00 Constitutional: Yes: No Distress, Calm Cardiovascular: Yes: Regular Rate and Rhythm Respiratory: Yes: Regular, CTA Bilaterally Gastrointestinal: Yes: Normal Bowel Sounds, Soft Musculoskeletal: Yes: WNL Extremities: Yes: Other Wound/Incision: Yes: Dressing Dry and Intact Neurological: Yes: Alert, Oriented Psychiatric: Yes: Alert, Oriented Labs: CBC, BMP 03/27/17 06:00 03/27/17 06:00 INR, PTT INR 1.10 (0.82-1.09) 03/23/17 17:31 Assessment/Plan patient mentions that he now can walk on the foot - Problems (1) Cellulitis Code(s): L03.90 - CELLULITIS, UNSPECIFIED Qualifiers: Site of cellulitis: extremity Site of cellulitis of extremity: lower extremity Laterality: right Qualified Code(s): L03.115 - Cellulitis of right lower limb (2) Diabetes Code(s): E11.9 - TYPE 2 DIABETES MELLITUS WITHOUT COMPLICATIONS collection in the ankle site plan continue abx await for cx report patient doing well
[2017-03-29] MEDS ORDERED: INSULIN DETEMIR 100 UNITS/ML MDV SQ ONE (17:25)
[2017-03-30] MEDS: PIPERACILLIN/TAZOB 3.375 GM 3.375 GM in DEXTROSE 5%-WATER - 100 ML IVPB SCH ×2 (01:29→11:26)
[2017-03-30] MEDS: metFORMIN HCL 500 MG TABLET (FP) PO SCH ×2 (06:30→16:59)
[2017-03-30] MEDS: INSULIN SLIDING SCALE (NOVOLOG) 1 VIAL SQ SCH ×4 (06:30→21:53)
[2017-03-30] MEDS ORDERED: INSULIN (NOVOLOG) ASPART 100 UNITS/ML 10ML VIAL ONE (06:34)
[2017-03-30] MEDS ORDERED: PT OWN MED DRAWER 7, Y5N ONE (11:11)
[2017-03-30] MEDS: HEPARIN NA (PORCINE) 5,000 UNITS/ML 1ML VIAL SQ SCH ×2 (11:26→21:22)
--- NOTE | 2017-03-30 12:05 | PN ---
Progress Note (short form) - Note Progress Note: Podiatry: Seen/evaluated at bedside, NAD. Pain well controlled, denies F/V/N/C/SOB/CP. Afebrile, VSS. S/p R foot incision and drainage POD#2. NARCISO: R foot: dressing C/D/I, no active bleeding, no strikethrough. Pedal pulses palpable, TG wnl, CFT brisk to all toes. Sutures well coapted, small area open with minimal serosanguinous drainage, no dehiscence. No fluctuance, no periwound erythema, no ascending cellulitis, no signs of active infection. Minimal tenderness to palpation. OR Cx: no growth OR Path: pending Imp: 57 year old DM M s/p R foot incision and drainage, abscess vs. cyst, POD#2 1. C/w abx per Infectious Disease 2. Xeroform + DSD R foot 3. Protected WB R foot with pneumatic walker 4. F/u OR culture, path 5. Upon discharge, will f/u with me in wound healing center 04/04/17. Zina Rivers DPM
--- NOTE | 2017-03-30 12:25 | PN ---
Progress Note, Physician History of Present Illness: stable no new issues discussd the case with podiatry team - Current Medication List Current Medications: Active Medications Acetaminophen (Tylenol -) 650 mg PO Q6H PRN PRN Reason: FEVER Amoxicillin/Clavulanate Potassium (Augmentin - 500mg Tablet) 1 tab PO BID@0800, 1730 [facility] Fentanyl (Sublimaze Injection -) 25 mcg IVPUSH [id number] PRN PRN Reason: PAIN-PACU ORDER X 4 DOSES ONLY Heparin Sodium (Porcine) (Heparin -) 5,000 unit SQ BID [facility] Last Admin: 03/30/17 11:26 Dose: 5,000 unit Insulin Aspart (Novolog Vial Sliding Scale -) 1 vial SQ ACHS [facility] PRN Reason: Protocol Last Admin: 03/30/17 06:30 Dose: 2 units Metformin HCl (Glucophage -) 500 mg PO BIDAC [facility] Last Admin: 03/30/17 06:30 Dose: 500 mg Oxycodone HCl (Roxicodone -) 5 mg PO Q4H PRN PRN Reason: PAIN LEVEL 1-5 - Objective Vital Signs: Vital Signs Temperature 98.1 F 03/30/17 07:09 Pulse Rate 89 03/30/17 07:09 Respiratory Rate 20 03/30/17 07:09 Blood Pressure 122/77 03/30/17 07:09 O2 Sat by Pulse Oximetry (%) 98 03/29/17 21:00 Constitutional: Yes: No Distress, Calm Cardiovascular: Yes: Regular Rate and Rhythm Respiratory: Yes: Regular, CTA Bilaterally Gastrointestinal: Yes: Normal Bowel Sounds, Soft Musculoskeletal: Yes: WNL Extremities: Yes: Other Wound/Incision: Yes: Dressing Dry and Intact Neurological: Yes: Alert, Oriented Psychiatric: Yes: Alert, Oriented Labs: CBC, BMP 03/27/17 06:00 03/27/17 06:00 INR, PTT INR 1.10 (0.82-1.09) 03/23/17 17:31 Assessment/Plan patient mentions that he now can walk on the foot - Problems (1) Cellulitis Code(s): L03.90 - CELLULITIS, UNSPECIFIED Qualifiers: Site of cellulitis: extremity Site of cellulitis of extremity: lower extremity Laterality: right Qualified Code(s): L03.115 - Cellulitis of right lower limb (2) Diabetes Code(s): E11.9 - TYPE 2 DIABETES MELLITUS WITHOUT COMPLICATIONS collection in the ankle site plan switched to po abx continue augmentn for another 5 days awaing for biopsy result rest as per podiatry and primary
--- NOTE | 2017-03-30 12:34 | PATH ---
Surgical Pathology Report Patient Name: BERT BARROS Med. Rec. #: [id number] /Age/Gender: 1960 (Age: 57) / M Account: [id number] Location: [facility] MED/SURG Taken: 03/28/2017 Received: 03/29/2017 Reported: 03/30/2017 Physicians: Dhruv Wylie M.D. Specimen(s) Received ABSCESS VS CYST RIGHT FOOT Clinical History Abscess right foot Final Diagnosis FOOT, RIGHT, ABSCESS VS CYST, DEBRIDEMENT: SOFT TISSUE WITH MARKED ACUTE AND CHRONIC INFLAMMATION AND PURULENT EXUDATE CONSISTENT WITH ABSCESS. Electronically Signed Lianna Negron M.D. Gross Description Received in formalin labeled "abscess versus cyst," is a 2.0 x 1.2 x 0.3 cm aggregate of tafoya-brown soft tissue fragments. The specimen is entirely submitted in one cassette. 03/29/201703/29/2017
[2017-03-30] MEDS: AMOX TR/POT CLAV 500MG/125MG TABLETS (FP) PO SCH (16:59)
--- NOTE | 2017-03-30 17:34 | PN ---
Progress Note, Physician History of Present Illness: no complaints - Current Medication List Current Medications: Active Medications Acetaminophen (Tylenol -) 650 mg PO Q6H PRN PRN Reason: FEVER Amoxicillin/Clavulanate Potassium (Augmentin - 500mg Tablet) 1 tab PO BID@0800, 1730 [facility] Last Admin: 03/30/17 16:59 Dose: 1 tab Fentanyl (Sublimaze Injection -) 25 mcg IVPUSH [id number] PRN PRN Reason: PAIN-PACU ORDER X 4 DOSES ONLY Heparin Sodium (Porcine) (Heparin -) 5,000 unit SQ BID [facility] Last Admin: 03/30/17 11:26 Dose: 5,000 unit Insulin Aspart (Novolog Vial Sliding Scale -) 1 vial SQ ACHS [facility] PRN Reason: Protocol Last Admin: 03/30/17 16:59 Dose: 4 units Metformin HCl (Glucophage -) 500 mg PO BIDAC [facility] Last Admin: 03/30/17 16:59 Dose: 500 mg Oxycodone HCl (Roxicodone -) 5 mg PO Q4H PRN PRN Reason: PAIN LEVEL 1-5 - Objective Vital Signs: Vital Signs Temperature 98.2 F 03/30/17 15:14 Pulse Rate 105 H 03/30/17 15:14 Respiratory Rate 20 03/30/17 15:14 Blood Pressure 121/76 03/30/17 15:14 O2 Sat by Pulse Oximetry (%) 98 03/30/17 09:00 Constitutional: Yes: No Distress HENT: Yes: Atraumatic Neck: Yes: Supple Cardiovascular: Yes: Regular Rate and Rhythm Respiratory: Yes: CTA Bilaterally Gastrointestinal: Yes: Normal Bowel Sounds Extremities: Yes: Other (R foot in dressing) Edema: RLE: 1+ (right foot) Peripheral Pulses WNL: Yes Neurological: Yes: Alert, Oriented Labs: CBC, BMP 03/27/17 06:00 03/27/17 06:00 INR, PTT INR 1.10 (0.82-1.09) 03/23/17 17:31 Problem List - Problems (1) Cellulitis Assessment/Plan: on po dc tomorrow Code(s): L03.90 - CELLULITIS, UNSPECIFIED Qualifiers: Site of cellulitis: extremity Site of cellulitis of extremity: lower extremity Laterality: right Qualified Code(s): L03.115 - Cellulitis of right lower limb (2) Diabetes Assessment/Plan: on po meds bgms Code(s): E11.9 - TYPE 2 DIABETES MELLITUS WITHOUT COMPLICATIONS
[2017-03-31] MEDS: INSULIN SLIDING SCALE (NOVOLOG) 1 VIAL SQ SCH ×2 (06:17→12:02)
[2017-03-31] MEDS: metFORMIN HCL 500 MG TABLET (FP) PO SCH (06:17)
[2017-03-31 06:21] VITALS: TEMP 98.1
[2017-03-31] MEDS: HEPARIN NA (PORCINE) 5,000 UNITS/ML 1ML VIAL SQ SCH (09:40)
[2017-03-31] MEDS: AMOX TR/POT CLAV 500MG/125MG TABLETS (FP) PO SCH (09:40)
[2017-03-31 10:58] VITALS: BP 159/64; PULSE 92
--- NOTE | 2017-03-31 14:33 | PN ---
Progress Note, Physician History of Present Illness: patient doing well no issues - Current Medication List Current Medications: Active Medications Acetaminophen (Tylenol -) 650 mg PO Q6H PRN PRN Reason: FEVER Amoxicillin/Clavulanate Potassium (Augmentin - 500mg Tablet) 1 tab PO BID@0800, 1730 [facility] Last Admin: 03/31/17 09:40 Dose: 1 tab Fentanyl (Sublimaze Injection -) 25 mcg IVPUSH [id number] PRN PRN Reason: PAIN-PACU ORDER X 4 DOSES ONLY Heparin Sodium (Porcine) (Heparin -) 5,000 unit SQ BID [facility] Last Admin: 03/31/17 09:40 Dose: 5,000 unit Insulin Aspart (Novolog Vial Sliding Scale -) 1 vial SQ ACHS [facility] PRN Reason: Protocol Last Admin: 03/31/17 12:02 Dose: 4 units Metformin HCl (Glucophage -) 500 mg PO BIDAC [facility] Last Admin: 03/31/17 06:17 Dose: 500 mg - Objective Vital Signs: Vital Signs Temperature 98.1 F 03/31/17 06:20 Pulse Rate 92 H 03/31/17 10:00 Respiratory Rate 18 03/31/17 10:00 Blood Pressure 159/64 03/31/17 10:00 O2 Sat by Pulse Oximetry (%) 98 03/30/17 21:00 Constitutional: Yes: No Distress, Calm Cardiovascular: Yes: Regular Rate and Rhythm Respiratory: Yes: Regular, CTA Bilaterally Gastrointestinal: Yes: Normal Bowel Sounds, Soft Musculoskeletal: Yes: WNL Extremities: Yes: WNL Neurological: Yes: Alert, Oriented Psychiatric: Yes: Alert, Oriented Labs: CBC, BMP 03/27/17 06:00 03/27/17 06:00 INR, PTT INR 1.10 (0.82-1.09) 03/23/17 17:31 Assessment/Plan patient mentions that he now can walk on the foot - Problems (1) Cellulitis Code(s): L03.90 - CELLULITIS, UNSPECIFIED Qualifiers: Site of cellulitis: extremity Site of cellulitis of extremity: lower extremity Laterality: right Qualified Code(s): L03.115 - Cellulitis of right lower limb (2) Diabetes Code(s): E11.9 - TYPE 2 DIABETES MELLITUS WITHOUT COMPLICATIONS collection in the ankle site plan continue po abx await for final cx follow up in the office will check if we find anything on the cx report
--- NOTE | 2017-03-31 14:39 | DS ---
Physical Examination Vital Signs: Vital Signs Temperature 98.1 F 03/31/17 06:20 Pulse Rate 92 H 03/31/17 10:00 Respiratory Rate 18 03/31/17 10:00 Blood Pressure 159/64 03/31/17 10:00 O2 Sat by Pulse Oximetry (%) 98 03/30/17 21:00 Constitutional: Yes: No Distress HENT: Yes: Atraumatic Neck: Yes: Supple Cardiovascular: Yes: Regular Rate and Rhythm Respiratory: Yes: CTA Bilaterally Gastrointestinal: Yes: Normal Bowel Sounds Extremities: Yes: Other (R foot in dressing) Edema: RLE: Trace Peripheral Pulses WNL: Yes Neurological: Yes: Alert, Oriented Labs: CBC, BMP 03/27/17 06:00 03/27/17 06:00 Discharge Summary Reason For Visit: CELLULITIS Current Active Problems Abscess or cellulitis of ankle (Acute) Cellulitis (Acute) Condition: Stable - Instructions Diet, Activity, Other Instructions: wound care dressing change see pmd 1-2 weeks Referrals: Reyna Manriquez MD [Staff Physician] - Dhruv Wylie MD [Primary Care Provider] - - Home Medications Comprehensive Discharge Medication List: Ambulatory Orders metFORMIN HCL [Glucophage -] 500 mg PO BIDAC #60 tablet 03/13/17 Amox-Tr/K Cl [Augmentin 500-125mg Tablet -] 1 tab PO BID@0800,1730 #10 tablet dc home fu podiatry, pmd
== END 2017-03-31 15:07 | disposition home or self-care (01) | DRG 638 ==
LOC: JER 16:49 → JERBED 20:38 → J8W 22:00
PROVIDERS: ADMIT Internal Medicine; ATTEND Internal Medicine
PROC: 0J9Q0ZX Drainage of Right Foot Subcutaneous Tissue and Fascia, Open Approach, Diagnostic (ICD-10-PCS; principal; 2017-03-28 13:00)
DX: E11.628 Type 2 diabetes mellitus with other skin complications (principal); L03.115 Cellulitis of right lower limb; L02.611 Cutaneous abscess of right foot; Z91.14 Patient's other noncompliance with medication regimen
CPT/HCPCS: 36415; 71045-TC; 73610-TC-RT-FY; 73630-TC-RT-FY; 73720-TC; 76882; 80053; 82962; 83605; 85025; 85610; 85730; 87040; 87070; 87086; 87205; 88304-TC; 94760; 97116-GP; 97161-GP; 99282-25; J1644

== ENCOUNTER 2020-07-13 20:20 | Inpatient (IN) | payer OTHER ==
[2020-07-13] MEDS ORDERED: LIDOCAINE HCL 1%, 10 MG/ML (20ML VIAL) ONE (21:07)
[2020-07-13] MEDS ORDERED: CLINDAMYCIN 600MG PREMIX IVPB 600 MG/50 ML BAG IVPB ONE ×2 (22:07→22:31)
[2020-07-13 22:08] LABS: BASO % 0.4 % (0-2.0); EOS % 0.9 % (0-4.5); HEMATOCRIT 34.9 % (35.4-49); HEMOGLOBIN 11.8 GM/dL (11.7-16.9); LYMPH % 8.1 % (8-40); MCH 29.2 pg (25.7-33.7); MCHC 33.9 g/dl (32.0-35.9); MEAN CELL VOLUME 85.9 fl (80-96); MEAN PLT VOLUME 6.8 fl (7.5-11.1); MONO % 9.8 % (3.8-10.2); NEUT % 80.8 % (42.8-82.8); PLATELET COUNT 403 K/MM3 (134-434); RBC 4.06 M/mm3 (4.00-5.60); RDW 13.2 % (11.9-15.9); WHITE BLOOD COUNT 12.1 K/mm3 (4.0-10.0)
[2020-07-13] MEDS ORDERED: LIDOCAINE HCL 1%, 10 MG/ML (50 mL VIAL) SQ ONE (22:08)
[2020-07-13 22:29] LABS: CHLORIDE 100 mmol/L (98-107); SODIUM 137 mmol/L (136-145)
[2020-07-13 22:31] LABS: CALCIUM 8.6 mg/dL (8.5-10.1)
[2020-07-13 22:32] LABS: ALBUMIN 2.8 g/dl (3.4-5.0); ANION GAP 7 MMOL/L (8-16); BLOOD UREA NITROGEN 21.2 mg/dL (7-18); CO2 29 mmol/L (21-32)
[2020-07-13 22:35] LABS: CREATININE 1.1 mg/dL (0.55-1.3); SGOT/AST 6 U/L (15-37); SGPT/ALT 9 U/L (13-61)
[2020-07-13 22:37] LABS: TOT PROT 7.3 g/dl (6.4-8.2)
[2020-07-13 22:38] LABS: ALK PHOS 195 U/L (45-117)
[2020-07-13 22:39] LABS: BILIRUBIN,TOTAL 0.3 mg/dL (0.2-1); GLUCOSE,RANDOM 439 mg/dL (74-106)
[2020-07-13] MEDS ORDERED: SODIUM CHLORIDE 1,000 ML IV STA (22:46)
[2020-07-13] MEDS ORDERED: INSULIN REGULAR HUMAN 100 UNITS/ML *VIAL SQ ONE (22:58)
[2020-07-13] MEDS ORDERED: INSULIN REGULAR HUMAN 100 UNITS/ML *VIAL ONE (23:01)
[2020-07-14] MEDS ORDERED: ACETAMINOPHEN 325 MG TABLET (FP) PO PRN (00:10)
[2020-07-14 00:44] LABS: URINE APPEARANCE CLEAR; URINE BILIRUBIN NEGATIVE (NEGATIVE); URINE COLOR YELLOW; URINE GLUCOSE (UA) 3+ (NEGATIVE); URINE KETONE 1+ (NEGATIVE); URINE LEUK ESTERASE NEGATIVE (NEGATIVE); URINE NITRITE NEGATIVE (NEGATIVE); URINE PROTEIN NEGATIVE (NEGATIVE); URINE UROBILINOGEN 0.2 mg/dL (0.2-1.0)
[2020-07-14 04:09] VITALS: BMI 20.9
[2020-07-14] MEDS: CLINDAMYCIN 600MG PREMIX IVPB 600 MG/50 ML BAG IVPB SCH ×3 (06:20→17:26)
[2020-07-14] MEDS: INSULIN SLIDING SCALE (NOVOLOG) 1 VIAL SQ SCH ×4 (06:32→21:39)
[2020-07-14 07:21] LABS: HEMATOCRIT 28.6 % (35.4-49); HEMOGLOBIN 9.8 GM/dL (11.7-16.9); MCHC 34.1 g/dl (32.0-35.9); MEAN PLT VOLUME 7.1 fl (7.5-11.1); PLATELET COUNT 377 K/MM3 (134-434); RBC 3.37 M/mm3 (4.00-5.60); RDW 13.1 % (11.9-15.9); WHITE BLOOD COUNT 12.3 K/mm3 (4.0-10.0)
[2020-07-14 07:51] LABS: IRON SERUM 19 ug/dL (50-175)
[2020-07-14 07:53] LABS: TOTAL IRON BINDING CAPACITY 207 ug/dL (250-450)
[2020-07-14 08:00] LABS: ALBUMIN 2.4 g/dl (3.4-5.0); CALCIUM 7.8 mg/dL (8.5-10.1)
[2020-07-14 08:01] LABS: BLOOD UREA NITROGEN 17.7 mg/dL (7-18); MAGNESIUM 1.9 mg/dL (1.8-2.4)
[2020-07-14 08:03] LABS: CREATININE 0.7 mg/dL (0.55-1.3); PHOSPHOROUS 2.6 mg/dL (2.5-4.9)
[2020-07-14 08:04] LABS: BILIRUBIN,TOTAL 0.2 mg/dL (0.2-1)
[2020-07-14 08:05] LABS: TOT PROT 6.1 g/dl (6.4-8.2)
[2020-07-14] MEDS: ENOXAPARIN NA (PORCINE) 40 MG/0.4 ML DISP.SYRIN SQ SCH (09:36)
[2020-07-14] MEDS: metFORMIN HCL 500 MG TABLET (FP) PO SCH (16:46)
[2020-07-14 18:30] LABS: HEMATOCRIT 34.9 % (35.4-49); HEMOGLOBIN 11.5 GM/dL (11.7-16.9); MCH 28.9 pg (25.7-33.7); MEAN CELL VOLUME 87.5 fl (80-96); MEAN PLT VOLUME 7.2 fl (7.5-11.1); PLATELET COUNT 411 K/MM3 (134-434); RBC 3.99 M/mm3 (4.00-5.60); RDW 12.8 % (11.9-15.9); WHITE BLOOD COUNT 11.8 K/mm3 (4.0-10.0)
[2020-07-14] MEDS ORDERED: INSULIN (LEVEMIR) 100 UNITS/ML UNITS SQ SCH (22:00)
[2020-07-15] MEDS: CLINDAMYCIN 600MG PREMIX IVPB 600 MG/50 ML BAG IVPB SCH ×3 (01:03→17:10)
[2020-07-15] MEDS: metFORMIN HCL 500 MG TABLET (FP) PO SCH ×2 (06:18→16:39)
[2020-07-15] MEDS: INSULIN SLIDING SCALE (NOVOLOG) 1 VIAL SQ SCH ×4 (06:19→21:48)
[2020-07-15 07:06] LABS: CALCIUM 8.3 mg/dL (8.5-10.1)
[2020-07-15 07:07] LABS: BLOOD UREA NITROGEN 15.9 mg/dL (7-18)
[2020-07-15 07:10] LABS: CREATININE 0.8 mg/dL (0.55-1.3)
[2020-07-15 07:14] LABS: HEMOGLOBIN 11.2 GM/dL (11.7-16.9); MCH 29.5 pg (25.7-33.7); MCHC 34.9 g/dl (32.0-35.9); MEAN CELL VOLUME 84.5 fl (80-96); MEAN PLT VOLUME 6.9 fl (7.5-11.1); PLATELET COUNT 439 K/MM3 (134-434); RBC 3.79 M/mm3 (4.00-5.60); RDW 12.8 % (11.9-15.9); WHITE BLOOD COUNT 8.5 K/mm3 (4.0-10.0)
[2020-07-15] MEDS: ENOXAPARIN NA (PORCINE) 40 MG/0.4 ML DISP.SYRIN SQ SCH (09:29)
[2020-07-15] MEDS: glipiZIDE-XL 5 MG TAB.ER.24 PO SCH (09:30)
[2020-07-16] MEDS: CLINDAMYCIN 600MG PREMIX IVPB 600 MG/50 ML BAG IVPB SCH ×2 (02:01→10:15)
[2020-07-16] MEDS: INSULIN SLIDING SCALE (NOVOLOG) 1 VIAL SQ SCH ×2 (06:08→11:35)
[2020-07-16] MEDS: glipiZIDE-XL 5 MG TAB.ER.24 PO SCH (06:11)
[2020-07-16] MEDS: metFORMIN HCL 500 MG TABLET (FP) PO SCH ×2 (06:11→16:54)
[2020-07-16] MEDS ORDERED: PT OWN MED DRAWER 7, Y5N ONE (10:04)
[2020-07-16] MEDS: ENOXAPARIN NA (PORCINE) 40 MG/0.4 ML DISP.SYRIN SQ SCH (11:35)
[2020-07-16 12:23] LABS: HEMATOCRIT 34.3 % (35.4-49); HEMOGLOBIN 11.8 GM/dL (11.7-16.9); MCH 29.3 pg (25.7-33.7); MCHC 34.5 g/dl (32.0-35.9); MEAN CELL VOLUME 84.9 fl (80-96); MEAN PLT VOLUME 6.9 fl (7.5-11.1); PLATELET COUNT 465 K/MM3 (134-434); RBC 4.04 M/mm3 (4.00-5.60); RDW 12.8 % (11.9-15.9); WHITE BLOOD COUNT 9.4 K/mm3 (4.0-10.0)
[2020-07-16 13:55] VITALS: BP 135/73; PULSE 100; TEMP 97.3
== END 2020-07-16 18:09 | disposition home health service (06) | DRG 638 ==
LOC: JERFT 20:20 → JER 20:20 → JERBED 23:53 → J4S 07-14 03:16
PROVIDERS: ADMIT Internal Medicine; ATTEND Internal Medicine
PROC: 0Y903ZZ Drainage of Right Buttock, Percutaneous Approach (ICD-10-PCS; principal; 2020-07-13)
DX: E11.65 Type 2 diabetes mellitus with hyperglycemia (principal); L02.31 Cutaneous abscess of buttock; Z79.84 Long term (current) use of oral hypoglycemic drugs; E88.09 Other disorders of plasma-protein metabolism, not elsewhere classified; D64.9 Anemia, unspecified
CPT/HCPCS: 36415; 71046-TC-FY; 80048; 80053; 80061; 81003; 82962; 83036; 83540; 83550; 83721; 83735; 84100; 85025; 85027; 87040; 87070; 87186; 87205; 93005; 93010; 97116-GP; 97161-GP; 99285-25; C9803; U0003; U0005

== ENCOUNTER 2022-01-07 12:17 | Inpatient (IN) | payer OTHER ==
[2022-01-07] MEDS ORDERED: SODIUM CHLORIDE 0.9% 500 ML INFUS.BAG IV ONE (12:27)
[2022-01-07 13:09] LABS: VENOUS BASE EXCESS 0.3 mmol/L (-2-2); VENOUS O2 SATURATION 68.6 % (70-80); VENOUS PCO2 52.2 mmHg (38-52); VENOUS PH 7.338 (7.310-7.410)
[2022-01-07 13:13] LABS: BASO % 0.7 % (0-2.0); EOS % 1.8 % (0-4.5); HEMATOCRIT 33.4 % (35.4-49); HEMOGLOBIN 11.5 GM/dL (11.7-16.9); LYMPH % 24.7 % (8-40); MCH 29.2 pg (25.7-33.7); MCHC 34.5 g/dl (32.0-35.9); MEAN CELL VOLUME 84.5 fl (80-96); MEAN PLT VOLUME 7.7 fl (7.5-11.1); MONO % 9.5 % (3.8-10.2); NEUT % 63.3 % (42.8-82.8); PLATELET COUNT 244 10^3/uL (134-434); RBC 3.95 M/mm3 (4.00-5.60); RDW 13.3 % (11.9-15.9); WHITE BLOOD COUNT 6.9 K/mm3 (4.0-10.0)
[2022-01-07 13:22] LABS: INR 0.97 (0.83-1.09); PROTHROMBIN TIME (PATIENT) 11.2 SEC (9.7-13.0)
[2022-01-07 13:25] LABS: ACTIVATED PTT 35.5 SECONDS (25.2-36.5)
[2022-01-07 14:21] LABS: ALBUMIN 3.2 g/dl (3.4-5.0); BILIRUBIN,TOTAL 0.3 mg/dL (0.2-1); BLOOD UREA NITROGEN 12.7 mg/dL (7-18); CALCIUM 8.7 mg/dL (8.5-10.1); CREATININE 1.5 mg/dL (0.55-1.3); MAGNESIUM 1.4 mg/dL (1.8-2.4); PHOSPHOROUS 2.9 mg/dL (2.5-4.9); TOT PROT 6.5 g/dl (6.4-8.2)
[2022-01-07] MEDS ORDERED: MAGNESIUM SULF 50% (8.12 MEQ/2 ML-1 GM VIAL) IVPB ONE (15:06)
[2022-01-07] MEDS ORDERED: SODIUM CHLORIDE 1,000 ML IV SCH (15:15)
[2022-01-07 15:29] LABS: EPI CELLS 2 /uL (0-25.1); HYALINE CASTS 2 /uL (0-3.1); PH,URINE 5.5 (5.0-8.0); URINE APPEARANCE CLEAR; URINE BACTERIA 0 /uL (0-1359); URINE BILIRUBIN NEGATIVE (NEGATIVE); URINE COLOR YELLOW; URINE GLUCOSE (UA) 3+ (NEGATIVE); URINE KETONE NEGATIVE (NEGATIVE); URINE LEUK ESTERASE NEGATIVE (NEGATIVE); URINE NITRITE NEGATIVE (NEGATIVE); URINE PROTEIN 1+ (NEGATIVE); URINE RBC 12 /uL (0-23.9); URINE UROBILINOGEN 0.2 mg/dL (0.2-1.0); URINE WBC 3 /uL (0-25.8)
[2022-01-07] MEDS ORDERED: MAGNESIUM SULFATE IN WATER 2 GM/50 ML IVPB IVPB ONE (15:29)
[2022-01-07] MEDS ORDERED: ATORVASTATIN CA 80 MG TABLET (FP) PO ONE (16:03)
[2022-01-07] MEDS ORDERED: ATORVASTATIN CA 40 MG TABLET (FP) ONE (16:23)
[2022-01-07 18:11] LABS: CHOLESTEROL 193 mg/dL (50-200); LDL CHOLESTEROL (ONLY SJRH) 78 mg/dL (5-100); TRIGLYCERIDES 76 mg/dL (0-150)
[2022-01-07 18:14] LABS: HDL CHOLESTEROL 101 mg/dL (40-60)
[2022-01-07] MEDS ORDERED: HEPARIN NA (PORCINE) 5,000 UNITS/ML 1ML VIAL ONE (21:18)
[2022-01-07] MEDS: HEPARIN NA (PORCINE) 5,000 UNITS/ML 1ML VIAL SQ SCH (21:25)
[2022-01-07] MEDS: INSULIN SLIDING SCALE (NOVOLOG) 1 VIAL SQ SCH (22:44)
[2022-01-08] MEDS: INSULIN SLIDING SCALE (NOVOLOG) 1 VIAL SQ SCH ×4 (06:05→21:13)
[2022-01-08] MEDS: HEPARIN NA (PORCINE) 5,000 UNITS/ML 1ML VIAL SQ SCH ×3 (06:10→21:13)
[2022-01-08 07:48] LABS: BASO % 0.7 % (0-2.0); EOS % 1.9 % (0-4.5); HEMATOCRIT 31.9 % (35.4-49); HEMOGLOBIN 11.2 GM/dL (11.7-16.9); LYMPH % 29.1 % (8-40); MCH 29.6 pg (25.7-33.7); MCHC 35.3 g/dl (32.0-35.9); MEAN CELL VOLUME 83.8 fl (80-96); MEAN PLT VOLUME 7.6 fl (7.5-11.1); MONO % 8.9 % (3.8-10.2); NEUT % 59.4 % (42.8-82.8); PLATELET COUNT 237 10^3/uL (134-434); RDW 13.4 % (11.9-15.9)
[2022-01-08 08:12] LABS: CALCIUM 8.3 mg/dL (8.5-10.1)
[2022-01-08 08:13] LABS: ALBUMIN 2.7 g/dl (3.4-5.0); BLOOD UREA NITROGEN 11.8 mg/dL (7-18); MAGNESIUM 1.9 mg/dL (1.8-2.4)
[2022-01-08 08:16] LABS: CREATININE 0.9 mg/dL (0.55-1.3); PHOSPHOROUS 2.9 mg/dL (2.5-4.9)
[2022-01-08 08:17] LABS: BILIRUBIN,TOTAL 0.4 mg/dL (0.2-1); TOT PROT 5.9 g/dl (6.4-8.2)
[2022-01-08] MEDS: TAMSULOSIN HCL 0.4 MG CAP PO SCH (09:30)
[2022-01-08] MEDS: ASPIRIN COATED 81 MG TABLET.EC PO SCH (09:30)
[2022-01-08 20:51] LABS: COCAINE, UR NEGATIVE (NEGATIVE); METHADONE, UR NEGATIVE (NEGATIVE); OPIATES, URI NEGATIVE (NEGATIVE); PHENCYCLIDINE,URINE NEGATIVE (NEGATIVE); URINE BARBITURATES NEGATIVE (NEGATIVE); URINE BENZODIAZEPINES NEGATIVE (NEGATIVE)
[2022-01-08 20:59] LABS: URINE AMPHETAMINES NEGATIVE (NEGATIVE)
[2022-01-08] MEDS: ATORVASTATIN CA 40 MG TABLET (FP) PO SCH (21:23)
[2022-01-09] MEDS: INSULIN SLIDING SCALE (NOVOLOG) 1 VIAL SQ SCH ×4 (06:41→21:43)
[2022-01-09] MEDS: HEPARIN NA (PORCINE) 5,000 UNITS/ML 1ML VIAL SQ SCH ×3 (06:42→21:36)
[2022-01-09] MEDS: ASPIRIN COATED 81 MG TABLET.EC PO SCH (10:02)
[2022-01-09] MEDS: TAMSULOSIN HCL 0.4 MG CAP PO SCH (10:02)
[2022-01-09] MEDS: ATORVASTATIN CA 40 MG TABLET (FP) PO SCH (21:37)
[2022-01-10] MEDS: INSULIN SLIDING SCALE (NOVOLOG) 1 VIAL SQ SCH ×4 (06:19→21:27)
[2022-01-10] MEDS: HEPARIN NA (PORCINE) 5,000 UNITS/ML 1ML VIAL SQ SCH ×3 (06:42→21:19)
[2022-01-10] MEDS ORDERED: metFORMIN HCL 500 MG TABLET (FP) PO SCH (07:00)
[2022-01-10] MEDS: TAMSULOSIN HCL 0.4 MG CAP PO SCH (09:54)
[2022-01-10] MEDS: ASPIRIN COATED 81 MG TABLET.EC PO SCH (09:54)
[2022-01-10 17:37] LABS: CALCIUM 8.5 mg/dL (8.5-10.1)
[2022-01-10 17:38] LABS: ALBUMIN 2.7 g/dl (3.4-5.0); BLOOD UREA NITROGEN 18.2 mg/dL (7-18); MAGNESIUM 1.4 mg/dL (1.8-2.4)
[2022-01-10 17:42] LABS: CREATININE 0.9 mg/dL (0.55-1.3); TOT PROT 5.9 g/dl (6.4-8.2)
[2022-01-10 17:43] LABS: BILIRUBIN,TOTAL 0.2 mg/dL (0.2-1)
[2022-01-10] MEDS ORDERED: MAGNESIUM 1GM/D5W 100ML - 100 ML IVPB IVPB ONE (17:59)
[2022-01-10] MEDS ORDERED: MAGNESIUM SULF 50% (8.12 MEQ/2 ML-1 GM VIAL) IVPB ONE (18:07)
[2022-01-10] MEDS: ATORVASTATIN CA 40 MG TABLET (FP) PO SCH (21:19)
[2022-01-11] MEDS: INSULIN SLIDING SCALE (NOVOLOG) 1 VIAL SQ SCH ×4 (06:05→22:43)
[2022-01-11] MEDS: HEPARIN NA (PORCINE) 5,000 UNITS/ML 1ML VIAL SQ SCH ×3 (06:05→22:35)
[2022-01-11] MEDS ORDERED: glipiZIDE 5 MG TABLET (FP) PO SCH ×2 (07:00→17:05)
[2022-01-11 07:57] LABS: HEMATOCRIT 33.5 % (35.4-49); HEMOGLOBIN 10.6 GM/dL (11.7-16.9); MCH 29.9 pg (25.7-33.7); MCHC 31.5 g/dl (32.0-35.9); MEAN CELL VOLUME 95.1 fl (80-96); MEAN PLT VOLUME 9.4 fl (7.5-11.1); PLATELET COUNT 159 10^3/uL (134-434); RBC 3.53 M/mm3 (4.00-5.60); RDW 16.3 % (11.9-15.9); WHITE BLOOD COUNT 5.7 K/mm3 (4.0-10.0)
[2022-01-11 08:26] LABS: BLOOD UREA NITROGEN 19.3 mg/dL (7-18); CALCIUM 8.8 mg/dL (8.5-10.1); MAGNESIUM 1.6 mg/dL (1.8-2.4)
[2022-01-11 08:27] LABS: BILIRUBIN,TOTAL 0.3 mg/dL (0.2-1)
[2022-01-11 08:32] LABS: TOT PROT 6.5 g/dl (6.4-8.2)
[2022-01-11] MEDS: ASPIRIN COATED 81 MG TABLET.EC PO SCH (09:19)
[2022-01-11] MEDS: TAMSULOSIN HCL 0.4 MG CAP PO SCH (09:19)
[2022-01-11] MEDS ORDERED: FLUDROCORTISONE ACETATE 0.1 MG TABLET (FP) PO SCH (12:15)
[2022-01-11] MEDS ORDERED: SODIUM CHLORIDE 500 ML IV ONE (12:15)
[2022-01-11] MEDS ORDERED: MAGNESIUM SULF 50% (8.12 MEQ/2 ML-1 GM VIAL) IVPB ONE (12:15)
[2022-01-11] MEDS ORDERED: SODIUM CHLORIDE 500 ML IV STA (17:31)
[2022-01-11] MEDS: ATORVASTATIN CA 40 MG TABLET (FP) PO SCH (22:35)
[2022-01-11] MEDS: FLUDROCORTISONE ACETATE 0.1 MG TABLET (FP) PO SCH (22:35)
[2022-01-12] MEDS: HEPARIN NA (PORCINE) 5,000 UNITS/ML 1ML VIAL SQ SCH ×2 (06:44→14:35)
[2022-01-12] MEDS: INSULIN SLIDING SCALE (NOVOLOG) 1 VIAL SQ SCH ×2 (06:48→11:42)
[2022-01-12 08:51] VITALS: PULSE 83
[2022-01-12] MEDS ORDERED: SODIUM CHLORIDE 500 ML IV ONE (08:54)
[2022-01-12 09:37] VITALS: BP 110/58; RESP 18; TEMP 97.5
[2022-01-12] MEDS: FLUDROCORTISONE ACETATE 0.1 MG TABLET (FP) PO SCH (09:38)
[2022-01-12] MEDS: ASPIRIN COATED 81 MG TABLET.EC PO SCH (09:38)
[2022-01-12 10:53] LABS: CALCIUM 8.5 mg/dL (8.5-10.1)
[2022-01-12 10:54] LABS: BLOOD UREA NITROGEN 15.9 mg/dL (7-18); MAGNESIUM 1.8 mg/dL (1.8-2.4)
[2022-01-12 10:57] LABS: CREATININE 0.8 mg/dL (0.55-1.3)
[2022-01-12 10:58] LABS: PHOSPHOROUS 3.3 mg/dL (2.5-4.9)
[2022-01-12 12:46] LABS: HEMATOCRIT 36.7 % (35.4-49); HEMOGLOBIN 12.7 GM/dL (11.7-16.9); MCHC 34.5 g/dl (32.0-35.9); MEAN PLT VOLUME 7.6 fl (7.5-11.1); PLATELET COUNT 237 10^3/uL (134-434); RBC 4.37 M/mm3 (4.00-5.60); RDW 13.8 % (11.9-15.9); WHITE BLOOD COUNT 6.2 K/mm3 (4.0-10.0)
[2022-01-13] VITALS: BMI 21.6
[2022-01-13] MEDS ORDERED: metFORMIN HCL 500 MG TABLET (FP) PO SCH (07:00)
== END 2022-01-12 15:30 | disposition home or self-care (01) | DRG 312 ==
LOC: JER 12:17 → JERBED 14:36 → J4W 21:32 → OBSVTOIN 01-10 14:36
PROVIDERS: ADMIT Internal Medicine; ATTEND Internal Medicine
DX: I95.1 Orthostatic hypotension (principal); N40.0 Benign prostatic hyperplasia without lower urinary tract symptoms; E11.65 Type 2 diabetes mellitus with hyperglycemia; I65.22 Occlusion and stenosis of left carotid artery
CPT/HCPCS: 0241U-QW; 36415; 70450-TC; 70496-TC; 70498-TC; 71045-TC-FY; 71275-TC; 80048; 80053; 80061; 80307; 81003; 82803; 82962; 83036; 83735; 84100; 84484; 85025; 85027; 85610; 85730; 86850; 86900; 86901; 87081; 87086; 93005; 93010; 93306-TC; 93880-TC; 97116-GP; 97161-GP; 99285-25; G0378; J1644; Q9967

== ENCOUNTER 2022-02-14 23:00 | Inpatient (IN) | payer OTHER ==
[2022-02-15] MEDS ORDERED: CEFEPIME HCL/D5W 2 GM/50 ML BAG IVPB ONE (02:08)
[2022-02-15] MEDS ORDERED: VANCOMYCIN 1 GM in D5W (PRE-DOCKED) 1,000 MG/250 ML IVPB ONE (02:08)
[2022-02-15] MEDS ORDERED: VANCOMYCIN/WATER FOR INJ (PEG) 1,000 MG/200 ML BAG IVPB ONE (02:57)
[2022-02-15] MEDS ORDERED: CEFEPIME 2 GM/100 ML BAG IVPB ONE (02:57)
[2022-02-15 03:29] LABS: BASO % 0.2 % (0-2.0); EOS % 0.1 % (0-4.5); HEMATOCRIT 27.6 % (35.4-49); HEMOGLOBIN 9.1 GM/dL (11.7-16.9); LYMPH % 5.9 % (8-40); MCH 27.5 pg (25.7-33.7); MCHC 32.9 g/dl (32.0-35.9); MEAN CELL VOLUME 83.6 fl (80-96); MEAN PLT VOLUME 6.8 fl (7.5-11.1); MONO % 9.9 % (3.8-10.2); NEUT % 83.9 % (42.8-82.8); PLATELET COUNT 326 10^3/uL (134-434); RDW 13.9 % (11.9-15.9); VENOUS BASE EXCESS -1.9 mmol/L (-2-2); VENOUS O2 SATURATION 65.8 % (70-80); VENOUS PH 7.385 (7.310-7.410)
[2022-02-15 03:49] LABS: CALCIUM 8.5 mg/dL (8.5-10.1); INR 1.26 (0.83-1.09); PROTHROMBIN TIME (PATIENT) 14.5 SEC (9.7-13.0)
[2022-02-15 03:51] LABS: ALBUMIN 2.7 g/dl (3.4-5.0); BLOOD UREA NITROGEN 34.9 mg/dL (7-18)
[2022-02-15 03:52] LABS: ACTIVATED PTT 40.6 SECONDS (25.2-36.5)
[2022-02-15 03:54] LABS: CREATININE 1.5 mg/dL (0.55-1.3)
[2022-02-15 03:56] LABS: BILIRUBIN,TOTAL 0.4 mg/dL (0.2-1); TOT PROT 6.9 g/dl (6.4-8.2)
[2022-02-15] MEDS ORDERED: SODIUM CHLORIDE 0.9% 500 ML INFUS.BAG IV ONE (05:43)
[2022-02-15] MEDS ORDERED: oxyCODONE HCL 5 MG TABLET PO PRN (09:45)
[2022-02-15] MEDS ORDERED: ACETAMINOPHEN 1000 MG/100 ML BAG IVPB PRN (11:30)
[2022-02-15 11:44] VITALS: BMI 23.2
[2022-02-15] MEDS ORDERED: INSULIN (NOVOLOG) ASPART 100 UNITS/ML 10ML VIAL ONE (11:54)
[2022-02-15] MEDS: INSULIN SLIDING SCALE (NOVOLOG) 1 VIAL SQ SCH ×3 (11:55→21:45)
[2022-02-15] MEDS: LACTATED RINGERS SOLUTION 1,000 ML IV SCH (12:49)
[2022-02-15] MEDS: HEPARIN NA (PORCINE) 5,000 UNITS/ML 1ML VIAL SQ SCH ×2 (15:08→21:46)
[2022-02-15] MEDS: PIPERACILLIN/TAZOB 3.375 GM 3.375 GM in DEXTROSE 5%-WATER - 50 ML IVPB SCH (17:32)
[2022-02-15] MEDS ORDERED: INSULIN (LEVEMIR) 100 UNITS/ML UNITS SQ SCH (22:00)
[2022-02-16] MEDS: PIPERACILLIN/TAZOB 3.375 GM 3.375 GM in DEXTROSE 5%-WATER - 50 ML IVPB SCH ×3 (01:07→17:49)
[2022-02-16 04:45] LABS: EPI CELLS 2 /uL (0-25.1); HYALINE CASTS 0 /uL (0-3.1); URINE APPEARANCE CLEAR; URINE BACTERIA 2 /uL (0-1359); URINE BILIRUBIN NEGATIVE (NEGATIVE); URINE COLOR YELLOW; URINE GLUCOSE (UA) 2+ (NEGATIVE); URINE KETONE NEGATIVE (NEGATIVE); URINE LEUK ESTERASE NEGATIVE (NEGATIVE); URINE NITRITE NEGATIVE (NEGATIVE); URINE PROTEIN 2+ (NEGATIVE); URINE RBC 40 /uL (0-23.9); URINE UROBILINOGEN 0.2 mg/dL (0.2-1.0); URINE WBC 5 /uL (0-25.8)
[2022-02-16] MEDS: INSULIN SLIDING SCALE (NOVOLOG) 1 VIAL SQ SCH ×4 (06:00→21:03)
[2022-02-16] MEDS: HEPARIN NA (PORCINE) 5,000 UNITS/ML 1ML VIAL SQ SCH ×3 (06:06→21:03)
[2022-02-16] MEDS ORDERED: COLLAGENASE CLOSTRIDIUM HIST. 30 GRAMS TUBE TP SCH (10:00)
[2022-02-16] MEDS: LACTATED RINGERS SOLUTION 1,000 ML IV SCH (10:02)
[2022-02-16] MEDS: COLLAGENASE CLOSTRIDIUM HIST. 30 GRAMS TUBE TP SCH (11:35)
[2022-02-16 12:00] LABS: BASO % 0.4 % (0-2.0); HEMOGLOBIN 9.1 GM/dL (11.7-16.9); LYMPH % 7.3 % (8-40); MCH 27.1 pg (25.7-33.7); MCHC 32.4 g/dl (32.0-35.9); MEAN CELL VOLUME 83.6 fl (80-96); MEAN PLT VOLUME 6.8 fl (7.5-11.1); MONO % 7.1 % (3.8-10.2); NEUT % 84.2 % (42.8-82.8); PLATELET COUNT 358 10^3/uL (134-434); RBC 3.35 M/mm3 (4.00-5.60); RDW 13.7 % (11.9-15.9); WHITE BLOOD COUNT 13.1 K/mm3 (4.0-10.0)
[2022-02-16 12:06] LABS: INR 1.12 (0.83-1.09); PROTHROMBIN TIME (PATIENT) 12.9 SEC (9.7-13.0)
[2022-02-16 12:08] LABS: ACTIVATED PTT 39.6 SECONDS (25.2-36.5)
[2022-02-16 12:31] LABS: BLOOD UREA NITROGEN 19.7 mg/dL (7-18); CALCIUM 8.2 mg/dL (8.5-10.1)
[2022-02-16 12:35] LABS: PHOSPHOROUS 2.5 mg/dL (2.5-4.9); TOT PROT 6.3 g/dl (6.4-8.2)
[2022-02-16 12:36] LABS: BILIRUBIN,TOTAL 0.4 mg/dL (0.2-1)
[2022-02-16 12:42] LABS: ALBUMIN 2.2 g/dl (3.4-5.0)
[2022-02-16] MEDS ORDERED: INSULIN (LEVEMIR) 100 UNITS/ML UNITS SQ SCH (14:58)
[2022-02-16] MEDS: FLUDROCORTISONE ACETATE 0.1 MG TABLET (FP) PO SCH ×2 (17:48→21:02)
[2022-02-16] MEDS: ACETAMINOPHEN 500 MG TABLET (FP) PO PRN (21:02)
[2022-02-16] MEDS: ATORVASTATIN CA 40 MG TABLET (FP) PO SCH (21:10)
[2022-02-17] MEDS: PIPERACILLIN/TAZOB 3.375 GM 3.375 GM in DEXTROSE 5%-WATER - 50 ML IVPB SCH ×2 (01:23→09:37)
[2022-02-17] MEDS: HEPARIN NA (PORCINE) 5,000 UNITS/ML 1ML VIAL SQ SCH (06:13)
[2022-02-17] MEDS: FLUDROCORTISONE ACETATE 0.1 MG TABLET (FP) PO SCH ×3 (06:13→21:45)
[2022-02-17] MEDS: INSULIN SLIDING SCALE (NOVOLOG) 1 VIAL SQ SCH ×4 (06:16→21:48)
[2022-02-17] MEDS: COLLAGENASE CLOSTRIDIUM HIST. 30 GRAMS TUBE TP SCH (09:38)
[2022-02-17 16:33] LABS: BASO % 0.3 % (0-2.0); EOS % 1.3 % (0-4.5); HEMATOCRIT 26.9 % (35.4-49); HEMOGLOBIN 8.7 GM/dL (11.7-16.9); LYMPH % 8.1 % (8-40); MCH 26.8 pg (25.7-33.7); MCHC 32.4 g/dl (32.0-35.9); MEAN CELL VOLUME 82.7 fl (80-96); MEAN PLT VOLUME 6.9 fl (7.5-11.1); MONO % 8.8 % (3.8-10.2); NEUT % 81.5 % (42.8-82.8); PLATELET COUNT 361 10^3/uL (134-434); RBC 3.25 M/mm3 (4.00-5.60); RDW 13.8 % (11.9-15.9); WHITE BLOOD COUNT 11.1 K/mm3 (4.0-10.0)
[2022-02-17 16:53] LABS: CALCIUM 8.1 mg/dL (8.5-10.1)
[2022-02-17 17:09] LABS: CREATININE 1.2 mg/dL (0.55-1.3)
[2022-02-17] MEDS: ACETAMINOPHEN 500 MG TABLET (FP) PO PRN (20:31)
[2022-02-17] MEDS ORDERED: SODIUM CHLORIDE 1,000 ML IV SCH (20:45)
[2022-02-17] MEDS: ATORVASTATIN CA 40 MG TABLET (FP) PO SCH (21:45)
[2022-02-17] MEDS ORDERED: INSULIN (LEVEMIR) 100 UNITS/ML UNITS SQ SCH (22:00)
[2022-02-18] MEDS: FLUDROCORTISONE ACETATE 0.1 MG TABLET (FP) PO SCH ×3 (06:23→22:37)
[2022-02-18] MEDS: INSULIN SLIDING SCALE (NOVOLOG) 1 VIAL SQ SCH ×4 (06:29→22:38)
[2022-02-18] MEDS: COLLAGENASE CLOSTRIDIUM HIST. 30 GRAMS TUBE TP SCH (09:44)
[2022-02-18] MEDS ORDERED: LIDOCAINE HCL 1%, 10 MG/ML (20ML VIAL) ONE (10:44)
[2022-02-18] MEDS ORDERED: HEPARIN NA (PORCINE) 5,000 UNITS/ML 1ML VIAL ONE (10:44)
[2022-02-18] MEDS ORDERED: PIPERACILLIN/TAZOB 3.375 GM 3.375 GM in DEXTROSE 5%-WATER - 50 ML IVPB SCH (12:00)
[2022-02-18] MEDS ORDERED: MIDAZOLAM HCL 2 MG/2 ML SINGLE DOSE VIAL ONE (12:45)
[2022-02-18] MEDS ORDERED: BUPIVACAINE HCL/PF 0.5% (5 MG/ML) 30 ML VIAL IJ ONE (13:00)
[2022-02-18] MEDS ORDERED: ONDANSETRON 4 MG/2 ML VIAL IVPUSH PRN (13:22)
[2022-02-18] MEDS ORDERED: SODIUM CHLORIDE 1,000 ML IV SCH (13:42)
[2022-02-18 14:08] LABS: BASO % 0.1 % (0-2.0); EOS % 1.3 % (0-4.5); HEMATOCRIT 25.6 % (35.4-49); HEMOGLOBIN 8.4 GM/dL (11.7-16.9); LYMPH % 6.6 % (8-40); MCH 27.3 pg (25.7-33.7); MEAN CELL VOLUME 82.7 fl (80-96); MEAN PLT VOLUME 6.4 fl (7.5-11.1); MONO % 11.6 % (3.8-10.2); NEUT % 80.4 % (42.8-82.8); PLATELET COUNT 371 10^3/uL (134-434); RBC 3.09 M/mm3 (4.00-5.60); RDW 13.8 % (11.9-15.9); WHITE BLOOD COUNT 10.8 K/mm3 (4.0-10.0)
[2022-02-18] MEDS: HEPARIN NA (PORCINE) 5,000 UNITS/ML 1ML VIAL SQ SCH ×2 (15:19→22:38)
[2022-02-18] MEDS: PIPERACILLIN/TAZOB 3.375 GM 3.375 GM in DEXTROSE 5%-WATER - 50 ML IVPB SCH (17:23)
[2022-02-18] MEDS ORDERED: INSULIN (NOVOLOG) ASPART 100 UNITS/ML 10ML VIAL ONE (17:31)
[2022-02-18] MEDS: amLODIPine BESYLATE 5 MG TABLET (FP) PO SCH (20:58)
[2022-02-18] MEDS ORDERED: INSULIN (LEVEMIR) 100 UNITS/ML UNITS SQ SCH (22:00)
[2022-02-18] MEDS: INSULIN (LEVEMIR) 100 UNITS/ML UNITS SQ SCH (22:37)
[2022-02-18] MEDS: ATORVASTATIN CA 40 MG TABLET (FP) PO SCH (22:37)
[2022-02-19] MEDS: PIPERACILLIN/TAZOB 3.375 GM 3.375 GM in DEXTROSE 5%-WATER - 50 ML IVPB SCH ×2 (01:35→10:22)
[2022-02-19] MEDS: INSULIN (LEVEMIR) 100 UNITS/ML UNITS SQ SCH ×2 (06:27→21:25)
[2022-02-19] MEDS: HEPARIN NA (PORCINE) 5,000 UNITS/ML 1ML VIAL SQ SCH ×3 (06:27→21:25)
[2022-02-19] MEDS: INSULIN SLIDING SCALE (NOVOLOG) 1 VIAL SQ SCH ×4 (06:37→22:33)
[2022-02-19 09:41] LABS: HEMATOCRIT 26.1 % (35.4-49); HEMOGLOBIN 8.5 GM/dL (11.7-16.9); MCH 26.8 pg (25.7-33.7); MCHC 32.5 g/dl (32.0-35.9); MEAN CELL VOLUME 82.7 fl (80-96); MEAN PLT VOLUME 6.7 fl (7.5-11.1); PLATELET COUNT 397 10^3/uL (134-434); RBC 3.16 M/mm3 (4.00-5.60); WHITE BLOOD COUNT 13.7 K/mm3 (4.0-10.0)
[2022-02-19] MEDS: COLLAGENASE CLOSTRIDIUM HIST. 30 GRAMS TUBE TP SCH (10:00)
[2022-02-19 10:10] LABS: CALCIUM 8.4 mg/dL (8.5-10.1)
[2022-02-19 10:11] LABS: ALBUMIN 1.7 g/dl (3.4-5.0); BLOOD UREA NITROGEN 15.4 mg/dL (7-18)
[2022-02-19 10:14] LABS: CREATININE 0.9 mg/dL (0.55-1.3)
[2022-02-19 10:15] LABS: BILIRUBIN,TOTAL 0.3 mg/dL (0.2-1); TOT PROT 5.6 g/dl (6.4-8.2)
[2022-02-19] MEDS: amLODIPine BESYLATE 5 MG TABLET (FP) PO SCH (10:22)
[2022-02-19] MEDS: FLUDROCORTISONE ACETATE 0.1 MG TABLET (FP) PO SCH ×2 (10:22→21:25)
[2022-02-19] MEDS ORDERED: PROPOFOL 40 ML ONE (11:14)
[2022-02-19] MEDS: PIPERACILLIN/TAZOB 4.5 GM 4.5 GM in DEXTROSE 5%-WATER 100 ML IVPB SCH (17:08)
[2022-02-19] MEDS: ATORVASTATIN CA 40 MG TABLET (FP) PO SCH (21:25)
[2022-02-20] MEDS: PIPERACILLIN/TAZOB 4.5 GM 4.5 GM in DEXTROSE 5%-WATER 100 ML IVPB SCH ×3 (02:00→17:19)
[2022-02-20] MEDS: HEPARIN NA (PORCINE) 5,000 UNITS/ML 1ML VIAL SQ SCH (05:33)
[2022-02-20] MEDS: INSULIN (LEVEMIR) 100 UNITS/ML UNITS SQ SCH ×2 (06:20→21:48)
[2022-02-20] MEDS: INSULIN SLIDING SCALE (NOVOLOG) 1 VIAL SQ SCH ×4 (06:21→21:49)
[2022-02-20] MEDS: amLODIPine BESYLATE 5 MG TABLET (FP) PO SCH (09:09)
[2022-02-20] MEDS: FLUDROCORTISONE ACETATE 0.1 MG TABLET (FP) PO SCH ×2 (09:09→22:37)
[2022-02-20] MEDS: COLLAGENASE CLOSTRIDIUM HIST. 30 GRAMS TUBE TP SCH (09:55)
[2022-02-20 10:28] LABS: BASO % 0.3 % (0-2.0); EOS % 1.3 % (0-4.5); HEMATOCRIT 27.6 % (35.4-49); HEMOGLOBIN 9.1 GM/dL (11.7-16.9); LYMPH % 7.1 % (8-40); MCH 27.2 pg (25.7-33.7); MCHC 33.1 g/dl (32.0-35.9); MEAN CELL VOLUME 82.2 fl (80-96); MEAN PLT VOLUME 7.2 fl (7.5-11.1); MONO % 10.1 % (3.8-10.2); NEUT % 81.2 % (42.8-82.8); PLATELET COUNT 508 10^3/uL (134-434); RBC 3.36 M/mm3 (4.00-5.60); RDW 13.7 % (11.9-15.9); WHITE BLOOD COUNT 14.6 K/mm3 (4.0-10.0)
[2022-02-20 11:06] LABS: CALCIUM 8.3 mg/dL (8.5-10.1)
[2022-02-20 11:07] LABS: ALBUMIN 1.9 g/dl (3.4-5.0); BLOOD UREA NITROGEN 16.2 mg/dL (7-18)
[2022-02-20 11:10] LABS: CREATININE 1.1 mg/dL (0.55-1.3)
[2022-02-20 11:12] LABS: BILIRUBIN,TOTAL 0.2 mg/dL (0.2-1)
[2022-02-20] MEDS ORDERED: INSULIN (NOVOLOG) ASPART 100 UNITS/ML 10ML VIAL ONE (21:10)
[2022-02-20] MEDS: ATORVASTATIN CA 40 MG TABLET (FP) PO SCH (21:35)
[2022-02-20] MEDS: ACETAMINOPHEN 500 MG TABLET (FP) PO PRN (21:35)
[2022-02-21] MEDS: PIPERACILLIN/TAZOB 4.5 GM 4.5 GM in DEXTROSE 5%-WATER 100 ML IVPB SCH ×3 (01:40→18:06)
[2022-02-21] MEDS: INSULIN (LEVEMIR) 100 UNITS/ML UNITS SQ SCH ×2 (06:42→21:50)
[2022-02-21] MEDS: INSULIN SLIDING SCALE (NOVOLOG) 1 VIAL SQ SCH ×4 (06:42→21:50)
[2022-02-21] MEDS: ENOXAPARIN NA (PORCINE) 40 MG/0.4 ML DISP.SYRIN SQ SCH (09:22)
[2022-02-21] MEDS: amLODIPine BESYLATE 5 MG TABLET (FP) PO SCH (09:22)
[2022-02-21] MEDS: COLLAGENASE CLOSTRIDIUM HIST. 30 GRAMS TUBE TP SCH (09:22)
[2022-02-21] MEDS ORDERED: INSULIN (LEVEMIR) 100 UNITS/ML UNITS SQ SCH (09:59)
[2022-02-21] MEDS: FLUDROCORTISONE ACETATE 0.1 MG TABLET (FP) PO SCH ×2 (10:07→21:50)
[2022-02-21 10:47] LABS: HEMATOCRIT 28.1 % (35.4-49); HEMOGLOBIN 9.1 GM/dL (11.7-16.9); MCH 26.9 pg (25.7-33.7); MCHC 32.5 g/dl (32.0-35.9); MEAN CELL VOLUME 82.7 fl (80-96); MEAN PLT VOLUME 6.8 fl (7.5-11.1); PLATELET COUNT 492 10^3/uL (134-434); RBC 3.39 M/mm3 (4.00-5.60); RDW 13.6 % (11.9-15.9); WHITE BLOOD COUNT 13.3 K/mm3 (4.0-10.0)
[2022-02-21 11:21] LABS: CALCIUM 8.7 mg/dL (8.5-10.1)
[2022-02-21 11:22] LABS: ALBUMIN 1.8 g/dl (3.4-5.0); BLOOD UREA NITROGEN 15.3 mg/dL (7-18)
[2022-02-21 11:25] LABS: CREATININE 0.9 mg/dL (0.55-1.3)
[2022-02-21 11:27] LABS: BILIRUBIN,TOTAL 0.3 mg/dL (0.2-1); TOT PROT 6.1 g/dl (6.4-8.2)
[2022-02-21] MEDS ORDERED: INSULIN (NOVOLOG) ASPART 100 UNITS/ML 10ML VIAL ONE (21:17)
[2022-02-21] MEDS: ATORVASTATIN CA 40 MG TABLET (FP) PO SCH (21:50)
[2022-02-21] MEDS: ACETAMINOPHEN 500 MG TABLET (FP) PO PRN (22:15)
[2022-02-22] MEDS: PIPERACILLIN/TAZOB 4.5 GM 4.5 GM in DEXTROSE 5%-WATER 100 ML IVPB SCH ×3 (02:26→17:41)
[2022-02-22] MEDS: INSULIN SLIDING SCALE (NOVOLOG) 1 VIAL SQ SCH ×4 (06:32→22:30)
[2022-02-22] MEDS: INSULIN (LEVEMIR) 100 UNITS/ML UNITS SQ SCH ×2 (06:44→22:30)
[2022-02-22] MEDS: amLODIPine BESYLATE 5 MG TABLET (FP) PO SCH (09:40)
[2022-02-22] MEDS: ENOXAPARIN NA (PORCINE) 40 MG/0.4 ML DISP.SYRIN SQ SCH (09:40)
[2022-02-22 10:36] LABS: BASO % 0.4 % (0-2.0); EOS % 1.3 % (0-4.5); HEMATOCRIT 24.7 % (35.4-49); HEMOGLOBIN 8.2 GM/dL (11.7-16.9); LYMPH % 7.4 % (8-40); MCH 27.3 pg (25.7-33.7); MCHC 33.4 g/dl (32.0-35.9); MEAN CELL VOLUME 81.9 fl (80-96); MEAN PLT VOLUME 6.9 fl (7.5-11.1); MONO % 8.9 % (3.8-10.2); PLATELET COUNT 477 10^3/uL (134-434); RBC 3.01 M/mm3 (4.00-5.60); RDW 13.9 % (11.9-15.9); WHITE BLOOD COUNT 13.1 K/mm3 (4.0-10.0)
[2022-02-22 11:59] LABS: ALBUMIN 1.6 g/dl (3.4-5.0); CALCIUM 8.1 mg/dL (8.5-10.1)
[2022-02-22 12:00] LABS: BLOOD UREA NITROGEN 13.4 mg/dL (7-18)
[2022-02-22 12:02] LABS: CREATININE 0.8 mg/dL (0.55-1.3)
[2022-02-22 12:04] LABS: BILIRUBIN,TOTAL 0.3 mg/dL (0.2-1); TOT PROT 5.5 g/dl (6.4-8.2)
[2022-02-22] MEDS: COLLAGENASE CLOSTRIDIUM HIST. 30 GRAMS TUBE TP SCH (16:49)
[2022-02-22] MEDS ORDERED: INSULIN (NOVOLOG) ASPART 100 UNITS/ML 10ML VIAL ONE (21:54)
[2022-02-22] MEDS: ATORVASTATIN CA 40 MG TABLET (FP) PO SCH (22:25)
[2022-02-22] MEDS: ACETAMINOPHEN 500 MG TABLET (FP) PO PRN (22:25)
[2022-02-22] MEDS: FLUDROCORTISONE ACETATE 0.1 MG TABLET (FP) PO SCH (22:28)
[2022-02-23] MEDS ORDERED: PIPERACILLIN/TAZOBACTAM 4.5 GM VIAL IVPB ONE ×2 (02:50→02:51)
[2022-02-23] MEDS: PIPERACILLIN/TAZOB 4.5 GM 4.5 GM in DEXTROSE 5%-WATER 100 ML IVPB SCH ×3 (03:00→17:33)
[2022-02-23] MEDS: INSULIN (LEVEMIR) 100 UNITS/ML UNITS SQ SCH (06:04)
[2022-02-23] MEDS: INSULIN SLIDING SCALE (NOVOLOG) 1 VIAL SQ SCH ×4 (06:38→21:59)
[2022-02-23] MEDS: ASPIRIN COATED 81 MG TABLET.EC PO SCH (09:43)
[2022-02-23] MEDS: LOSARTAN POTASSIUM 50 MG TABLET PO SCH (09:43)
[2022-02-23] MEDS: COLLAGENASE CLOSTRIDIUM HIST. 30 GRAMS TUBE TP SCH (09:44)
[2022-02-23] MEDS: ENOXAPARIN NA (PORCINE) 40 MG/0.4 ML DISP.SYRIN SQ SCH (09:48)
[2022-02-23] MEDS ORDERED: INSULIN (LEVEMIR) 100 UNITS/ML UNITS SQ SCH (10:41)
[2022-02-23] MEDS: ATORVASTATIN CA 40 MG TABLET (FP) PO SCH (21:58)
[2022-02-23] MEDS: FLUDROCORTISONE ACETATE 0.1 MG TABLET (FP) PO SCH (21:58)
[2022-02-24] MEDS: PIPERACILLIN/TAZOB 4.5 GM 4.5 GM in DEXTROSE 5%-WATER 100 ML IVPB SCH ×3 (02:01→18:20)
[2022-02-24] MEDS: INSULIN (LEVEMIR) 100 UNITS/ML UNITS SQ SCH (06:00)
[2022-02-24] MEDS: INSULIN SLIDING SCALE (NOVOLOG) 1 VIAL SQ SCH ×4 (06:01→22:10)
[2022-02-24] MEDS ORDERED: INSULIN (NOVOLOG) ASPART 100 UNITS/ML 10ML VIAL ONE (09:25)
[2022-02-24] MEDS: COLLAGENASE CLOSTRIDIUM HIST. 30 GRAMS TUBE TP SCH (09:31)
[2022-02-24] MEDS: ASPIRIN COATED 81 MG TABLET.EC PO SCH (09:31)
[2022-02-24] MEDS: LOSARTAN POTASSIUM 50 MG TABLET PO SCH (09:43)
[2022-02-24] MEDS ORDERED: DEXTROSE 50%-WATER 25 GM/50 ML DISP.SYRIN IVPUSH ONE ×2 (12:21→16:36)
[2022-02-24] MEDS ORDERED: DEXTROSE 50%-WATER 25 GM/50 ML DISP.SYRIN ONE ×2 (12:22→15:57)
[2022-02-24] MEDS ORDERED: PROMETHAZINE HCL 25 MG/1 ML VIAL IVPUSH PRN ×4 (12:55→15:44)
[2022-02-24] MEDS ORDERED: ONDANSETRON 4 MG/2 ML VIAL IVPUSH PRN ×4 (12:55→15:44)
[2022-02-24] MEDS ORDERED: LACTATED RINGERS SOLUTION 1,000 ML IV SCH ×2 (13:00→15:30)
[2022-02-24] MEDS ORDERED: LIDOCAINE HCL 1%, 10 MG/ML (20ML VIAL) NR ONE ×2 (13:14→14:00)
[2022-02-24] MEDS ORDERED: HEPARIN NA (PORCINE) 5,000 UNITS/ML 1ML VIAL SQ ONE ×2 (13:15→14:30)
[2022-02-24] MEDS ORDERED: DEXMEDETOMIDINE HCL 200 MCG/2 ML IVPB ONE (13:45)
[2022-02-24] MEDS ORDERED: ACETAMINOPHEN 500 MG TABLET (FP) PO PRN (15:44)
[2022-02-24] MEDS: LACTATED RINGERS SOLUTION 1,000 ML IV SCH (16:45)
[2022-02-24] MEDS ORDERED: INSULIN (LEVEMIR) 100 UNITS/ML UNITS SQ SCH (22:00)
[2022-02-24] MEDS: ATORVASTATIN CA 40 MG TABLET (FP) PO SCH (22:05)
[2022-02-24] MEDS: FLUDROCORTISONE ACETATE 0.1 MG TABLET (FP) PO SCH (22:05)
[2022-02-25] MEDS: PIPERACILLIN/TAZOB 4.5 GM 4.5 GM in DEXTROSE 5%-WATER 100 ML IVPB SCH ×3 (01:45→17:50)
[2022-02-25] MEDS: INSULIN (LEVEMIR) 100 UNITS/ML UNITS SQ SCH (06:08)
[2022-02-25] MEDS: INSULIN SLIDING SCALE (NOVOLOG) 1 VIAL SQ SCH ×4 (06:08→22:19)
[2022-02-25] MEDS ORDERED: INSULIN (LEVEMIR) 100 UNITS/ML UNITS SQ SCH (07:00)
[2022-02-25] MEDS ORDERED: ENOXAPARIN NA (PORCINE) 40 MG/0.4 ML DISP.SYRIN SQ SCH (10:00)
[2022-02-25] MEDS: ASPIRIN COATED 81 MG TABLET.EC PO SCH (10:16)
[2022-02-25] MEDS: LOSARTAN POTASSIUM 50 MG TABLET PO SCH (10:16)
[2022-02-25] MEDS ORDERED: INSULIN (NOVOLOG) ASPART 100 UNITS/ML 10ML VIAL ONE (11:20)
[2022-02-25] MEDS: COLLAGENASE CLOSTRIDIUM HIST. 30 GRAMS TUBE TP SCH (11:31)
[2022-02-25 11:37] LABS: HEMATOCRIT 23.7 % (35.4-49); HEMOGLOBIN 7.9 GM/dL (11.7-16.9); MCH 27.3 pg (25.7-33.7); MCHC 33.5 g/dl (32.0-35.9); MEAN CELL VOLUME 81.6 fl (80-96); MEAN PLT VOLUME 6.3 fl (7.5-11.1); PLATELET COUNT 494 10^3/uL (134-434); RBC 2.91 M/mm3 (4.00-5.60); RDW 13.9 % (11.9-15.9); WHITE BLOOD COUNT 14.8 K/mm3 (4.0-10.0)
[2022-02-25 12:07] LABS: CREATININE 0.9 mg/dL (0.55-1.3)
[2022-02-25] MEDS ORDERED: CLOPIDOGREL BISULFATE 75 MG TABLET (FP) PO SCH ×2 (12:45→15:30)
[2022-02-25] MEDS: LACTATED RINGERS SOLUTION 1,000 ML IV SCH (15:19)
[2022-02-25] MEDS ORDERED: ASPIRIN 325 MG TABLET PO SCH (15:30)
[2022-02-25] MEDS: ATORVASTATIN CA 40 MG TABLET (FP) PO SCH (22:19)
[2022-02-25] MEDS: FLUDROCORTISONE ACETATE 0.1 MG TABLET (FP) PO SCH (22:19)
[2022-02-26] MEDS: PIPERACILLIN/TAZOB 4.5 GM 4.5 GM in DEXTROSE 5%-WATER 100 ML IVPB SCH ×3 (03:03→17:49)
[2022-02-26] MEDS: INSULIN (LEVEMIR) 100 UNITS/ML UNITS SQ SCH ×2 (07:09→21:11)
[2022-02-26] MEDS: INSULIN SLIDING SCALE (NOVOLOG) 1 VIAL SQ SCH ×4 (07:10→21:12)
[2022-02-26] MEDS: COLLAGENASE CLOSTRIDIUM HIST. 30 GRAMS TUBE TP SCH (09:41)
[2022-02-26] MEDS: ASPIRIN COATED 81 MG TABLET.EC PO SCH (09:41)
[2022-02-26] MEDS: LOSARTAN POTASSIUM 50 MG TABLET PO SCH (09:41)
[2022-02-26] MEDS ORDERED: ENOXAPARIN NA (PORCINE) 40 MG/0.4 ML DISP.SYRIN SQ SCH (10:00)
[2022-02-26] MEDS: ENOXAPARIN NA (PORCINE) 40 MG/0.4 ML DISP.SYRIN SQ SCH (14:23)
[2022-02-26] MEDS: ATORVASTATIN CA 40 MG TABLET (FP) PO SCH (21:10)
[2022-02-26] MEDS: FLUDROCORTISONE ACETATE 0.1 MG TABLET (FP) PO SCH (21:15)
[2022-02-27] MEDS: PIPERACILLIN/TAZOB 4.5 GM 4.5 GM in DEXTROSE 5%-WATER 100 ML IVPB SCH ×3 (03:10→17:05)
[2022-02-27] MEDS: INSULIN (LEVEMIR) 100 UNITS/ML UNITS SQ SCH ×2 (06:10→22:13)
[2022-02-27] MEDS: INSULIN SLIDING SCALE (NOVOLOG) 1 VIAL SQ SCH ×4 (06:11→22:14)
[2022-02-27] MEDS: LOSARTAN POTASSIUM 50 MG TABLET PO SCH (09:00)
[2022-02-27] MEDS: ENOXAPARIN NA (PORCINE) 40 MG/0.4 ML DISP.SYRIN SQ SCH (09:00)
[2022-02-27] MEDS: ASPIRIN COATED 81 MG TABLET.EC PO SCH (09:00)
[2022-02-27] MEDS: COLLAGENASE CLOSTRIDIUM HIST. 30 GRAMS TUBE TP SCH (09:01)
[2022-02-27] MEDS: ATORVASTATIN CA 40 MG TABLET (FP) PO SCH (22:13)
[2022-02-27] MEDS: FLUDROCORTISONE ACETATE 0.1 MG TABLET (FP) PO SCH (22:24)
[2022-02-28] MEDS: PIPERACILLIN/TAZOB 4.5 GM 4.5 GM in DEXTROSE 5%-WATER 100 ML IVPB SCH ×3 (01:37→17:18)
[2022-02-28] MEDS: INSULIN SLIDING SCALE (NOVOLOG) 1 VIAL SQ SCH ×4 (06:02→21:56)
[2022-02-28] MEDS: INSULIN (LEVEMIR) 100 UNITS/ML UNITS SQ SCH ×2 (06:02→21:51)
[2022-02-28] MEDS: ASPIRIN COATED 81 MG TABLET.EC PO SCH (09:13)
[2022-02-28] MEDS: ENOXAPARIN NA (PORCINE) 40 MG/0.4 ML DISP.SYRIN SQ SCH (09:14)
[2022-02-28] MEDS: LOSARTAN POTASSIUM 50 MG TABLET PO SCH (09:14)
[2022-02-28] MEDS: COLLAGENASE CLOSTRIDIUM HIST. 30 GRAMS TUBE TP SCH (09:15)
[2022-02-28 11:47] LABS: HEMOGLOBIN 8.1 GM/dL (11.7-16.9); MCH 27.5 pg (25.7-33.7); MCHC 33.8 g/dl (32.0-35.9); MEAN CELL VOLUME 81.4 fl (80-96); MEAN PLT VOLUME 6.5 fl (7.5-11.1); PLATELET COUNT 568 10^3/uL (134-434); RBC 2.94 M/mm3 (4.00-5.60); RDW 14.5 % (11.9-15.9); WHITE BLOOD COUNT 10.8 K/mm3 (4.0-10.0)
[2022-02-28 12:08] LABS: BLOOD UREA NITROGEN 14.5 mg/dL (7-18); CALCIUM 8.6 mg/dL (8.5-10.1); MAGNESIUM 1.7 mg/dL (1.8-2.4)
[2022-02-28 12:09] LABS: ALBUMIN 1.6 g/dl (3.4-5.0)
[2022-02-28 12:11] LABS: PHOSPHOROUS 3.2 mg/dL (2.5-4.9)
[2022-02-28 12:13] LABS: BILIRUBIN,TOTAL 0.2 mg/dL (0.2-1)
[2022-02-28] MEDS ORDERED: MAGNESIUM SULF 50% (8.12 MEQ/2 ML-1 GM VIAL) IVPB ONE (15:58)
[2022-02-28] MEDS: ATORVASTATIN CA 40 MG TABLET (FP) PO SCH (21:50)
[2022-02-28] MEDS: FLUDROCORTISONE ACETATE 0.1 MG TABLET (FP) PO SCH (21:50)
[2022-02-28] MEDS: METOPROLOL TARTRATE 25 MG TABLET (FP) PO SCH (22:00)
[2022-03-01] MEDS: PIPERACILLIN/TAZOB 4.5 GM 4.5 GM in DEXTROSE 5%-WATER 100 ML IVPB SCH ×3 (03:08→17:42)
[2022-03-01] MEDS: INSULIN SLIDING SCALE (NOVOLOG) 1 VIAL SQ SCH ×4 (06:22→21:31)
[2022-03-01] MEDS: INSULIN (LEVEMIR) 100 UNITS/ML UNITS SQ SCH ×2 (06:24→21:30)
[2022-03-01 09:37] LABS: HEMATOCRIT 23.3 % (35.4-49); HEMOGLOBIN 7.9 GM/dL (11.7-16.9); MCH 27.4 pg (25.7-33.7); MCHC 33.9 g/dl (32.0-35.9); MEAN CELL VOLUME 80.9 fl (80-96); MEAN PLT VOLUME 6.6 fl (7.5-11.1); PLATELET COUNT 554 10^3/uL (134-434); RBC 2.88 M/mm3 (4.00-5.60); RDW 14.5 % (11.9-15.9); WHITE BLOOD COUNT 10.2 K/mm3 (4.0-10.0)
[2022-03-01 10:06] LABS: CALCIUM 8.4 mg/dL (8.5-10.1)
[2022-03-01 10:09] LABS: ALBUMIN 1.6 g/dl (3.4-5.0); BLOOD UREA NITROGEN 13.5 mg/dL (7-18); MAGNESIUM 1.9 mg/dL (1.8-2.4)
[2022-03-01 10:10] LABS: BILIRUBIN,TOTAL 0.2 mg/dL (0.2-1); TOT PROT 5.8 g/dl (6.4-8.2)
[2022-03-01 10:11] LABS: PHOSPHOROUS 3.4 mg/dL (2.5-4.9)
[2022-03-01 10:12] LABS: CREATININE 0.9 mg/dL (0.55-1.3)
[2022-03-01] MEDS: ASPIRIN COATED 81 MG TABLET.EC PO SCH (10:26)
[2022-03-01] MEDS: ENOXAPARIN NA (PORCINE) 40 MG/0.4 ML DISP.SYRIN SQ SCH (10:26)
[2022-03-01] MEDS: LOSARTAN POTASSIUM 50 MG TABLET PO SCH (10:26)
[2022-03-01] MEDS: METOPROLOL TARTRATE 25 MG TABLET (FP) PO SCH ×2 (10:26→21:30)
[2022-03-01] MEDS: COLLAGENASE CLOSTRIDIUM HIST. 30 GRAMS TUBE TP SCH (10:27)
[2022-03-01] MEDS ORDERED: MAGNESIUM SULF 50% (8.12 MEQ/2 ML-1 GM VIAL) IVPB ONE (12:11)
[2022-03-01] MEDS: CYCLOBENZAPRINE HCL 5 MG TABLET PO PRN (18:01)
[2022-03-01] MEDS ORDERED: INSULIN (NOVOLOG) ASPART 100 UNITS/ML 10ML VIAL ONE (21:03)
[2022-03-01] MEDS: ATORVASTATIN CA 40 MG TABLET (FP) PO SCH (21:30)
[2022-03-01] MEDS: FLUDROCORTISONE ACETATE 0.1 MG TABLET (FP) PO SCH (21:35)
[2022-03-02] MEDS: CYCLOBENZAPRINE HCL 5 MG TABLET PO PRN (02:10)
[2022-03-02] MEDS: PIPERACILLIN/TAZOB 4.5 GM 4.5 GM in DEXTROSE 5%-WATER 100 ML IVPB SCH ×3 (02:12→17:27)
[2022-03-02] MEDS: INSULIN SLIDING SCALE (NOVOLOG) 1 VIAL SQ SCH ×4 (06:17→21:44)
[2022-03-02] MEDS: INSULIN (LEVEMIR) 100 UNITS/ML UNITS SQ SCH ×2 (06:19→21:43)
[2022-03-02] MEDS ORDERED: INSULIN (NOVOLOG) ASPART 100 UNITS/ML 10ML VIAL ONE (06:53)
[2022-03-02] MEDS: METOPROLOL TARTRATE 25 MG TABLET (FP) PO SCH ×2 (09:08→21:42)
[2022-03-02] MEDS: ENOXAPARIN NA (PORCINE) 40 MG/0.4 ML DISP.SYRIN SQ SCH (09:09)
[2022-03-02] MEDS: LOSARTAN POTASSIUM 50 MG TABLET PO SCH (09:09)
[2022-03-02] MEDS: COLLAGENASE CLOSTRIDIUM HIST. 30 GRAMS TUBE TP SCH (09:10)
[2022-03-02 10:57] LABS: HEMOGLOBIN 7.9 GM/dL (11.7-16.9); MCH 27.6 pg (25.7-33.7); MCHC 34.2 g/dl (32.0-35.9); MEAN CELL VOLUME 80.7 fl (80-96); MEAN PLT VOLUME 6.2 fl (7.5-11.1); PLATELET COUNT 497 10^3/uL (134-434); RBC 2.85 M/mm3 (4.00-5.60); RDW 14.4 % (11.9-15.9); WHITE BLOOD COUNT 10.6 K/mm3 (4.0-10.0)
[2022-03-02 12:01] LABS: BLOOD UREA NITROGEN 15.4 mg/dL (7-18)
[2022-03-02 12:07] LABS: ALBUMIN 1.6 g/dl (3.4-5.0); CALCIUM 8.2 mg/dL (8.5-10.1); MAGNESIUM 1.9 mg/dL (1.8-2.4)
[2022-03-02 12:08] LABS: BILIRUBIN,TOTAL 0.3 mg/dL (0.2-1)
[2022-03-02 12:09] LABS: CREATININE 1.1 mg/dL (0.55-1.3); PHOSPHOROUS 3.3 mg/dL (2.5-4.9)
[2022-03-02 12:10] LABS: TOT PROT 6.3 g/dl (6.4-8.2)
[2022-03-02] MEDS: ATORVASTATIN CA 40 MG TABLET (FP) PO SCH (21:42)
[2022-03-02] MEDS: FLUDROCORTISONE ACETATE 0.1 MG TABLET (FP) PO SCH (21:42)
[2022-03-02] MEDS: BENZOCAINE/MENTHOL 1 EACH LOZENGE MM PRN (22:10)
[2022-03-03] MEDS: PIPERACILLIN/TAZOB 4.5 GM 4.5 GM in DEXTROSE 5%-WATER 100 ML IVPB SCH ×2 (01:09→09:10)
[2022-03-03] MEDS: INSULIN SLIDING SCALE (NOVOLOG) 1 VIAL SQ SCH ×4 (06:30→22:48)
[2022-03-03] MEDS: INSULIN (LEVEMIR) 100 UNITS/ML UNITS SQ SCH ×2 (06:30→22:46)
[2022-03-03] MEDS: METOPROLOL TARTRATE 25 MG TABLET (FP) PO SCH ×2 (09:09→22:47)
[2022-03-03] MEDS: LOSARTAN POTASSIUM 50 MG TABLET PO SCH (09:09)
[2022-03-03] MEDS: ENOXAPARIN NA (PORCINE) 40 MG/0.4 ML DISP.SYRIN SQ SCH (09:10)
[2022-03-03] MEDS: BENZOCAINE/MENTHOL 1 EACH LOZENGE MM PRN (09:10)
[2022-03-03] MEDS: COLLAGENASE CLOSTRIDIUM HIST. 30 GRAMS TUBE TP SCH (11:03)
[2022-03-03 11:10] LABS: HEMATOCRIT 24.4 % (35.4-49); HEMOGLOBIN 8.3 GM/dL (11.7-16.9); MCH 27.8 pg (25.7-33.7); MCHC 34.1 g/dl (32.0-35.9); MEAN CELL VOLUME 81.4 fl (80-96); MEAN PLT VOLUME 6.5 fl (7.5-11.1); PLATELET COUNT 524 10^3/uL (134-434); RDW 14.3 % (11.9-15.9); WHITE BLOOD COUNT 10.7 K/mm3 (4.0-10.0)
[2022-03-03 11:37] LABS: ALBUMIN 1.7 g/dl (3.4-5.0)
[2022-03-03 11:38] LABS: BLOOD UREA NITROGEN 16.9 mg/dL (7-18); CALCIUM 8.3 mg/dL (8.5-10.1); MAGNESIUM 1.8 mg/dL (1.8-2.4)
[2022-03-03 11:41] LABS: CREATININE 0.9 mg/dL (0.55-1.3); PHOSPHOROUS 3.3 mg/dL (2.5-4.9)
[2022-03-03 11:42] LABS: BILIRUBIN,TOTAL 0.2 mg/dL (0.2-1); TOT PROT 6.2 g/dl (6.4-8.2)
[2022-03-03 17:35] LABS: INR 1.21 (0.83-1.09)
[2022-03-03] MEDS ORDERED: guaiFENesin/D-M SUGAR-FREE/ACLHOL-FREE 118 ML BOTTLE PO PRN (22:11)
[2022-03-03] MEDS: ATORVASTATIN CA 40 MG TABLET (FP) PO SCH (22:47)
[2022-03-03] MEDS: FLUDROCORTISONE ACETATE 0.1 MG TABLET (FP) PO SCH (22:47)
[2022-03-04] MEDS: INSULIN SLIDING SCALE (NOVOLOG) 1 VIAL SQ SCH ×4 (06:42→23:09)
[2022-03-04] MEDS: INSULIN (LEVEMIR) 100 UNITS/ML UNITS SQ SCH ×2 (06:43→23:10)
[2022-03-04] MEDS: METOPROLOL TARTRATE 25 MG TABLET (FP) PO SCH ×2 (09:21→23:06)
[2022-03-04] MEDS: LOSARTAN POTASSIUM 50 MG TABLET PO SCH (09:21)
[2022-03-04] MEDS: COLLAGENASE CLOSTRIDIUM HIST. 30 GRAMS TUBE TP SCH (09:22)
[2022-03-04] MEDS ORDERED: LIDOCAINE HCL 1%, 10 MG/ML (20ML VIAL) ONE (09:43)
[2022-03-04] MEDS ORDERED: BUPIVACAINE HCL/PF 0.5% (5MG/ML) 10 ML VIAL ONE (09:44)
[2022-03-04] MEDS ORDERED: DEXAMETHASONE SOD PHOSPHATE 4 MG/1 ML VIAL ONE (09:44)
[2022-03-04] MEDS ORDERED: GENTAMICIN SO4 80 MG/2 ML VIAL ONE (09:45)
[2022-03-04 10:42] LABS: HEMATOCRIT 22.7 % (35.4-49); HEMOGLOBIN 7.5 GM/dL (11.7-16.9); MCH 26.8 pg (25.7-33.7); MCHC 33.1 g/dl (32.0-35.9); MEAN PLT VOLUME 6.4 fl (7.5-11.1); PLATELET COUNT 438 10^3/uL (134-434); RDW 14.4 % (11.9-15.9); WHITE BLOOD COUNT 9.8 K/mm3 (4.0-10.0)
[2022-03-04 10:47] LABS: INR 1.27 (0.83-1.09); PROTHROMBIN TIME (PATIENT) 14.6 SEC (9.7-13.0)
[2022-03-04] MEDS ORDERED: THROMBIN (BOVINE) 5,000 UNIT VIAL TP ONE (11:05)
[2022-03-04] MEDS ORDERED: PIPERACILLIN/TAZOBACTAM 3.375 GM VIAL IVPB ONE ×2 (11:05→11:08)
[2022-03-04] MEDS ORDERED: LIDOCAINE HCL 1%, 10 MG/ML (20ML VIAL) NR ONE ×3 (11:12)
[2022-03-04] MEDS ORDERED: BUPIVACAINE HCL/PF 0.5% (5MG/ML) 10 ML VIAL IJ ONE ×3 (11:12)
[2022-03-04 11:18] LABS: CALCIUM 8.2 mg/dL (8.5-10.1)
[2022-03-04 11:19] LABS: ALBUMIN 1.6 g/dl (3.4-5.0); BLOOD UREA NITROGEN 16.6 mg/dL (7-18); MAGNESIUM 1.6 mg/dL (1.8-2.4)
[2022-03-04 11:22] LABS: CREATININE 0.9 mg/dL (0.55-1.3); PHOSPHOROUS 3.1 mg/dL (2.5-4.9)
[2022-03-04 11:24] LABS: BILIRUBIN,TOTAL 0.3 mg/dL (0.2-1)
[2022-03-04] MEDS ORDERED: ONDANSETRON 4 MG/2 ML VIAL IVPUSH PRN ×2 (12:16→12:30)
[2022-03-04] MEDS ORDERED: ACETAMINOPHEN 325 MG TABLET (FP) PO PRN ×2 (12:16→12:30)
[2022-03-04] MEDS ORDERED: BENZOCAINE/MENTHOL 1 EACH LOZENGE MM PRN (12:30)
[2022-03-04] MEDS ORDERED: ACETAMINOPHEN 500 MG TABLET (FP) PO PRN (12:30)
[2022-03-04] MEDS ORDERED: CYCLOBENZAPRINE HCL 5 MG TABLET PO PRN (12:30)
[2022-03-04] MEDS ORDERED: MAGNESIUM 1GM/D5W 100ML - 100 ML IVPB IVPB ONE (15:30)
[2022-03-04] MEDS: ATORVASTATIN CA 40 MG TABLET (FP) PO SCH (23:04)
[2022-03-04] MEDS: guaiFENesin/D-M SUGAR-FREE/ACLHOL-FREE 5 ML UNIT DOSE PO PRN (23:19)
[2022-03-05] MEDS: INSULIN (LEVEMIR) 100 UNITS/ML UNITS SQ SCH ×2 (07:12→22:15)
[2022-03-05] MEDS: INSULIN SLIDING SCALE (NOVOLOG) 1 VIAL SQ SCH ×4 (07:13→22:16)
[2022-03-05] MEDS: LOSARTAN POTASSIUM 50 MG TABLET PO SCH (09:24)
[2022-03-05] MEDS: METOPROLOL TARTRATE 25 MG TABLET (FP) PO SCH ×2 (09:24→22:18)
[2022-03-05] MEDS: PIPERACILLIN/TAZOB 4.5 GM 4.5 GM in DEXTROSE 5%-WATER 100 ML IVPB SCH ×2 (09:25→17:18)
[2022-03-05] MEDS: guaiFENesin/D-M SUGAR-FREE/ACLHOL-FREE 5 ML UNIT DOSE PO PRN ×2 (09:26→23:31)
[2022-03-05 10:18] LABS: HEMATOCRIT 23.8 % (35.4-49); MCH 27.2 pg (25.7-33.7); MCHC 33.7 g/dl (32.0-35.9); MEAN CELL VOLUME 80.8 fl (80-96); MEAN PLT VOLUME 6.4 fl (7.5-11.1); PLATELET COUNT 437 10^3/uL (134-434); RBC 2.95 M/mm3 (4.00-5.60); RDW 14.5 % (11.9-15.9); WHITE BLOOD COUNT 12.2 K/mm3 (4.0-10.0)
[2022-03-05 10:45] LABS: ALBUMIN 1.6 g/dl (3.4-5.0); BLOOD UREA NITROGEN 19.1 mg/dL (7-18); CALCIUM 8.4 mg/dL (8.5-10.1); MAGNESIUM 1.6 mg/dL (1.8-2.4)
[2022-03-05 10:48] LABS: PHOSPHOROUS 3.2 mg/dL (2.5-4.9)
[2022-03-05 10:50] LABS: BILIRUBIN,TOTAL 0.2 mg/dL (0.2-1); TOT PROT 6.3 g/dl (6.4-8.2)
[2022-03-05] MEDS: ATORVASTATIN CA 40 MG TABLET (FP) PO SCH (22:18)
[2022-03-06] MEDS: PIPERACILLIN/TAZOB 4.5 GM 4.5 GM in DEXTROSE 5%-WATER 100 ML IVPB SCH ×2 (02:57→09:02)
[2022-03-06] MEDS: INSULIN (LEVEMIR) 100 UNITS/ML UNITS SQ SCH ×2 (06:58→22:10)
[2022-03-06] MEDS: INSULIN SLIDING SCALE (NOVOLOG) 1 VIAL SQ SCH ×4 (08:20→22:09)
[2022-03-06] MEDS ORDERED: PIPERACILLIN/TAZOBACTAM 4.5 GM VIAL IVPB ONE (08:44)
[2022-03-06] MEDS: METOPROLOL TARTRATE 25 MG TABLET (FP) PO SCH ×2 (09:02→22:01)
[2022-03-06] MEDS: ASPIRIN COATED 81 MG TABLET.EC PO SCH (09:02)
[2022-03-06] MEDS: LOSARTAN POTASSIUM 50 MG TABLET PO SCH (09:02)
[2022-03-06] MEDS: guaiFENesin/D-M SUGAR-FREE/ACLHOL-FREE 5 ML UNIT DOSE PO PRN (09:29)
[2022-03-06 09:50] LABS: BASO % 0.5 % (0-2.0); EOS % 3.7 % (0-4.5); HEMATOCRIT 25.2 % (35.4-49); HEMOGLOBIN 8.6 GM/dL (11.7-16.9); MCH 27.3 pg (25.7-33.7); MCHC 33.9 g/dl (32.0-35.9); MEAN CELL VOLUME 80.3 fl (80-96); MEAN PLT VOLUME 6.7 fl (7.5-11.1); MONO % 9.9 % (3.8-10.2); NEUT % 69.9 % (42.8-82.8); PLATELET COUNT 474 10^3/uL (134-434); RBC 3.14 M/mm3 (4.00-5.60); RDW 14.8 % (11.9-15.9); WHITE BLOOD COUNT 9.7 K/mm3 (4.0-10.0)
[2022-03-06 10:28] LABS: BLOOD UREA NITROGEN 15.2 mg/dL (7-18)
[2022-03-06 10:30] LABS: ALBUMIN 1.8 g/dl (3.4-5.0)
[2022-03-06 10:31] LABS: MAGNESIUM 1.5 mg/dL (1.8-2.4)
[2022-03-06 10:33] LABS: CALCIUM 8.6 mg/dL (8.5-10.1)
[2022-03-06 10:35] LABS: PHOSPHOROUS 3.8 mg/dL (2.5-4.9)
[2022-03-06 10:36] LABS: BILIRUBIN,TOTAL 0.2 mg/dL (0.2-1); TOT PROT 6.8 g/dl (6.4-8.2)
[2022-03-06] MEDS ORDERED: INSULIN (NOVOLOG) ASPART 100 UNITS/ML 10ML VIAL ONE (11:14)
[2022-03-06] MEDS: ENOXAPARIN NA (PORCINE) 40 MG/0.4 ML DISP.SYRIN SQ SCH (13:40)
[2022-03-06] MEDS: metroNIDAZOLE 250 MG TABLET PO SCH ×2 (13:40→22:01)
[2022-03-06] MEDS: CEFTRIAXONE 2 GM in DEXTROSE 5%-WATER 100 ML IVPB SCH (17:00)
[2022-03-06] MEDS: ATORVASTATIN CA 40 MG TABLET (FP) PO SCH (22:00)
[2022-03-07] MEDS: metroNIDAZOLE 250 MG TABLET PO SCH ×3 (05:22→21:44)
[2022-03-07] MEDS: INSULIN SLIDING SCALE (NOVOLOG) 1 VIAL SQ SCH ×4 (06:27→21:45)
[2022-03-07] MEDS: INSULIN (LEVEMIR) 100 UNITS/ML UNITS SQ SCH ×2 (06:29→21:47)
[2022-03-07] MEDS: LOSARTAN POTASSIUM 50 MG TABLET PO SCH (09:53)
[2022-03-07] MEDS: ASPIRIN COATED 81 MG TABLET.EC PO SCH (09:53)
[2022-03-07] MEDS: METOPROLOL TARTRATE 25 MG TABLET (FP) PO SCH ×2 (09:53→21:44)
[2022-03-07] MEDS: ENOXAPARIN NA (PORCINE) 40 MG/0.4 ML DISP.SYRIN SQ SCH (09:53)
[2022-03-07] MEDS: CEFTRIAXONE 2 GM in DEXTROSE 5%-WATER 100 ML IVPB SCH (09:53)
[2022-03-07 12:25] LABS: HEMATOCRIT 23.7 % (35.4-49); MCH 27.1 pg (25.7-33.7); MCHC 33.6 g/dl (32.0-35.9); MEAN CELL VOLUME 80.6 fl (80-96); MEAN PLT VOLUME 6.4 fl (7.5-11.1); PLATELET COUNT 370 10^3/uL (134-434); RBC 2.94 M/mm3 (4.00-5.60); RDW 15.1 % (11.9-15.9); WHITE BLOOD COUNT 8.6 K/mm3 (4.0-10.0)
[2022-03-07 12:56] LABS: ALBUMIN 1.6 g/dl (3.4-5.0); BLOOD UREA NITROGEN 17.6 mg/dL (7-18); MAGNESIUM 1.4 mg/dL (1.8-2.4)
[2022-03-07 12:59] LABS: PHOSPHOROUS 2.9 mg/dL (2.5-4.9)
[2022-03-07 13:01] LABS: BILIRUBIN,TOTAL 0.2 mg/dL (0.2-1); TOT PROT 6.3 g/dl (6.4-8.2)
[2022-03-07] MEDS: ATORVASTATIN CA 40 MG TABLET (FP) PO SCH (21:44)
[2022-03-08] MEDS: INSULIN (LEVEMIR) 100 UNITS/ML UNITS SQ SCH ×2 (06:02→21:27)
[2022-03-08] MEDS: INSULIN SLIDING SCALE (NOVOLOG) 1 VIAL SQ SCH ×4 (06:03→21:28)
[2022-03-08] MEDS: metroNIDAZOLE 250 MG TABLET PO SCH (06:04)
[2022-03-08] MEDS: LOSARTAN POTASSIUM 50 MG TABLET PO SCH (09:15)
[2022-03-08] MEDS: ENOXAPARIN NA (PORCINE) 40 MG/0.4 ML DISP.SYRIN SQ SCH (09:15)
[2022-03-08] MEDS: CEFTRIAXONE 2 GM in DEXTROSE 5%-WATER 100 ML IVPB SCH (09:15)
[2022-03-08] MEDS: METOPROLOL TARTRATE 25 MG TABLET (FP) PO SCH ×2 (09:16→21:27)
[2022-03-08] MEDS: ASPIRIN COATED 81 MG TABLET.EC PO SCH (09:16)
[2022-03-08 10:03] LABS: HEMATOCRIT 27.2 % (35.4-49); MCH 27.1 pg (25.7-33.7); MCHC 33.2 g/dl (32.0-35.9); MEAN CELL VOLUME 81.7 fl (80-96); MEAN PLT VOLUME 6.5 fl (7.5-11.1); PLATELET COUNT 447 10^3/uL (134-434); RBC 3.34 M/mm3 (4.00-5.60); WHITE BLOOD COUNT 8.9 K/mm3 (4.0-10.0)
[2022-03-08 10:21] LABS: ALBUMIN 1.9 g/dl (3.4-5.0); BLOOD UREA NITROGEN 19.6 mg/dL (7-18)
[2022-03-08 10:22] LABS: CALCIUM 8.8 mg/dL (8.5-10.1); MAGNESIUM 1.5 mg/dL (1.8-2.4)
[2022-03-08 10:24] LABS: CREATININE 0.9 mg/dL (0.55-1.3); PHOSPHOROUS 3.3 mg/dL (2.5-4.9)
[2022-03-08 10:26] LABS: BILIRUBIN,TOTAL 0.2 mg/dL (0.2-1); TOT PROT 6.8 g/dl (6.4-8.2)
[2022-03-08] MEDS ORDERED: MAGNESIUM SULF 50% (8.12 MEQ/2 ML-1 GM VIAL) IVPB ONE ×2 (13:45→14:16)
[2022-03-08] MEDS: VANCOMYCIN/WATER 1250 MG 1,250 MG/250 ML BAG IVPB SCH (13:48)
[2022-03-08] MEDS: ATORVASTATIN CA 40 MG TABLET (FP) PO SCH (21:27)
[2022-03-08] MEDS ORDERED: INSULIN (NOVOLOG) ASPART 100 UNITS/ML 10ML VIAL ONE (21:31)
[2022-03-09] MEDS: INSULIN (LEVEMIR) 100 UNITS/ML UNITS SQ SCH ×2 (06:05→22:03)
[2022-03-09] MEDS: INSULIN SLIDING SCALE (NOVOLOG) 1 VIAL SQ SCH ×4 (06:05→22:03)
[2022-03-09] MEDS: ASPIRIN COATED 81 MG TABLET.EC PO SCH (09:10)
[2022-03-09] MEDS: LOSARTAN POTASSIUM 50 MG TABLET PO SCH (09:10)
[2022-03-09] MEDS: METOPROLOL TARTRATE 25 MG TABLET (FP) PO SCH ×2 (09:10→22:07)
[2022-03-09] MEDS: FINASTERIDE 5 MG TABLET (FP) PO SCH (09:10)
[2022-03-09] MEDS: ENOXAPARIN NA (PORCINE) 40 MG/0.4 ML DISP.SYRIN SQ SCH (09:10)
[2022-03-09] MEDS ORDERED: INSULIN (NOVOLOG) ASPART 100 UNITS/ML 10ML VIAL ONE (11:35)
[2022-03-09] MEDS: VANCOMYCIN/WATER 1250 MG 1,250 MG/250 ML BAG IVPB SCH (12:18)
[2022-03-09 12:51] LABS: HEMATOCRIT 26.4 % (35.4-49); HEMOGLOBIN 8.8 GM/dL (11.7-16.9); MCH 27.2 pg (25.7-33.7); MCHC 33.4 g/dl (32.0-35.9); MEAN CELL VOLUME 81.5 fl (80-96); MEAN PLT VOLUME 6.5 fl (7.5-11.1); PLATELET COUNT 432 10^3/uL (134-434); RBC 3.24 M/mm3 (4.00-5.60); RDW 15.2 % (11.9-15.9); WHITE BLOOD COUNT 8.1 K/mm3 (4.0-10.0)
[2022-03-09 13:07] LABS: CALCIUM 8.7 mg/dL (8.5-10.1)
[2022-03-09 13:08] LABS: MAGNESIUM 1.7 mg/dL (1.8-2.4)
[2022-03-09 13:10] LABS: CREATININE 0.9 mg/dL (0.55-1.3)
[2022-03-09 13:11] LABS: PHOSPHOROUS 3.3 mg/dL (2.5-4.9)
[2022-03-09 13:12] LABS: BILIRUBIN,TOTAL 0.6 mg/dL (0.2-1)
[2022-03-09] MEDS ORDERED: MAGNESIUM SULF 50% (8.12 MEQ/2 ML-1 GM VIAL) IVPB ONE ×2 (19:33→22:00)
[2022-03-09] MEDS: ATORVASTATIN CA 40 MG TABLET (FP) PO SCH (22:07)
[2022-03-10] MEDS: INSULIN SLIDING SCALE (NOVOLOG) 1 VIAL SQ SCH ×4 (07:13→22:12)
[2022-03-10] MEDS: INSULIN (LEVEMIR) 100 UNITS/ML UNITS SQ SCH ×2 (07:14→22:12)
[2022-03-10] MEDS: ASPIRIN COATED 81 MG TABLET.EC PO SCH (11:18)
[2022-03-10] MEDS: FINASTERIDE 5 MG TABLET (FP) PO SCH (11:18)
[2022-03-10] MEDS: LOSARTAN POTASSIUM 50 MG TABLET PO SCH (11:18)
[2022-03-10] MEDS: METOPROLOL TARTRATE 25 MG TABLET (FP) PO SCH ×2 (11:18→22:12)
[2022-03-10] MEDS: ENOXAPARIN NA (PORCINE) 40 MG/0.4 ML DISP.SYRIN SQ SCH (11:18)
[2022-03-10 11:48] LABS: HEMATOCRIT 27.8 % (35.4-49); HEMOGLOBIN 9.2 GM/dL (11.7-16.9); MCH 26.9 pg (25.7-33.7); MCHC 33.3 g/dl (32.0-35.9); MEAN CELL VOLUME 80.9 fl (80-96); MEAN PLT VOLUME 6.5 fl (7.5-11.1); PLATELET COUNT 438 10^3/uL (134-434); RBC 3.43 M/mm3 (4.00-5.60); RDW 15.3 % (11.9-15.9); WHITE BLOOD COUNT 8.3 K/mm3 (4.0-10.0)
[2022-03-10 12:17] LABS: BLOOD UREA NITROGEN 20.5 mg/dL (7-18); CALCIUM 8.8 mg/dL (8.5-10.1); MAGNESIUM 1.6 mg/dL (1.8-2.4)
[2022-03-10 12:20] LABS: CREATININE 0.9 mg/dL (0.55-1.3)
[2022-03-10 12:22] LABS: BILIRUBIN,TOTAL 0.2 mg/dL (0.2-1); TOT PROT 6.8 g/dl (6.4-8.2)
[2022-03-10] MEDS: VANCOMYCIN/WATER 1250 MG 1,250 MG/250 ML BAG IVPB SCH (12:41)
[2022-03-10] MEDS ORDERED: INSULIN (NOVOLOG) ASPART 100 UNITS/ML 10ML VIAL ONE (22:08)
[2022-03-10] MEDS: ATORVASTATIN CA 40 MG TABLET (FP) PO SCH (22:12)
[2022-03-11] MEDS: INSULIN SLIDING SCALE (NOVOLOG) 1 VIAL SQ SCH ×4 (06:17→21:00)
[2022-03-11] MEDS: INSULIN (LEVEMIR) 100 UNITS/ML UNITS SQ SCH ×2 (07:44→20:59)
[2022-03-11] MEDS: ASPIRIN COATED 81 MG TABLET.EC PO SCH (10:49)
[2022-03-11] MEDS: ENOXAPARIN NA (PORCINE) 40 MG/0.4 ML DISP.SYRIN SQ SCH (10:49)
[2022-03-11] MEDS: METOPROLOL TARTRATE 25 MG TABLET (FP) PO SCH ×2 (10:49→21:00)
[2022-03-11] MEDS: LOSARTAN POTASSIUM 50 MG TABLET PO SCH (10:49)
[2022-03-11] MEDS: FINASTERIDE 5 MG TABLET (FP) PO SCH (10:49)
[2022-03-11] MEDS: VANCOMYCIN/WATER 1250 MG 1,250 MG/250 ML BAG IVPB SCH (13:00)
[2022-03-11] MEDS ORDERED: INSULIN (NOVOLOG) ASPART 100 UNITS/ML 10ML VIAL ONE ×2 (17:34→20:41)
[2022-03-11] MEDS ORDERED: INSULIN (LEVEMIR) 100 UNITS/ML UNITS SQ ONE (17:34)
[2022-03-11] MEDS: ATORVASTATIN CA 40 MG TABLET (FP) PO SCH (21:00)
[2022-03-12] MEDS: INSULIN (LEVEMIR) 100 UNITS/ML UNITS SQ SCH (06:33)
[2022-03-12] MEDS: INSULIN SLIDING SCALE (NOVOLOG) 1 VIAL SQ SCH ×3 (06:36→16:49)
[2022-03-12] MEDS: LOSARTAN POTASSIUM 50 MG TABLET PO SCH (09:55)
[2022-03-12] MEDS: METOPROLOL TARTRATE 25 MG TABLET (FP) PO SCH (09:55)
[2022-03-12] MEDS: FINASTERIDE 5 MG TABLET (FP) PO SCH (09:55)
[2022-03-12] MEDS: ENOXAPARIN NA (PORCINE) 40 MG/0.4 ML DISP.SYRIN SQ SCH (09:55)
[2022-03-12] MEDS: ASPIRIN COATED 81 MG TABLET.EC PO SCH (09:55)
[2022-03-12 14:04] VITALS: BP 128/68; PULSE 78; RESP 18; TEMP 97.4
[2022-03-12] MEDS: VANCOMYCIN/WATER 1250 MG 1,250 MG/250 ML BAG IVPB SCH (16:56)
== END 2022-03-12 19:03 | disposition home health service (06) | DRG 854 ==
LOC: JER 23:00 → JERBED 02-15 03:05 → J6S 02-15 10:34
PROVIDERS: ADMIT Internal Medicine; ATTEND Internal Medicine
PROC: 3E10X8Z Irrigation of Skin and Mucous Membranes using Irrigating Substance (ICD-10-PCS; 2022-02-18)
PROC: 0HDNXZZ Extraction of Left Foot Skin, External Approach (ICD-10-PCS; 2022-02-18)
PROC: 0Y9N0ZZ Drainage of Left Foot, Open Approach (ICD-10-PCS; principal; 2022-02-18 13:00)
PROC: 047U3ZZ Dilation of Left Peroneal Artery, Percutaneous Approach (ICD-10-PCS; 2022-02-24)
PROC: 04CU3ZZ Extirpation of Matter from Left Peroneal Artery, Percutaneous Approach (ICD-10-PCS; 2022-02-24)
PROC: B40DYZZ Plain Radiography of Aorta and Bilateral Lower Extremity Arteries using Other Contrast (ICD-10-PCS; 2022-02-24)
PROC: B40GYZZ Plain Radiography of Left Lower Extremity Arteries using Other Contrast (ICD-10-PCS; 2022-02-24)
PROC: 0QBP0ZX Excision of Left Metatarsal, Open Approach, Diagnostic (ICD-10-PCS; 2022-03-04)
PROC: 0Y6Y0Z0 Detachment at Left 5th Toe, Complete, Open Approach (ICD-10-PCS; 2022-03-04)
PROC: 3E0102A Introduction of Anti-Infective Envelope into Subcutaneous Tissue, Open Approach (ICD-10-PCS; 2022-03-04)
PROC: 02HV33Z Insertion of Infusion Device into Superior Vena Cava, Percutaneous Approach (ICD-10-PCS; 2022-03-10)
PROC: B518ZZA Fluoroscopy of Superior Vena Cava, Guidance (ICD-10-PCS; 2022-03-10)
DX: A41.89 Other specified sepsis (principal); E11.52 Type 2 diabetes mellitus with diabetic peripheral angiopathy with gangrene; L02.612 Cutaneous abscess of left foot; N17.9 Acute kidney failure, unspecified; L97.428 Non-pressure chronic ulcer of left heel and midfoot with other specified severity; L03.116 Cellulitis of left lower limb; M86.172 Other acute osteomyelitis, left ankle and foot; I70.262 Atherosclerosis of native arteries of extremities with gangrene, left leg; N40.0 Benign prostatic hyperplasia without lower urinary tract symptoms; R50.9 Fever, unspecified; D72.829 Elevated white blood cell count, unspecified; E11.621 Type 2 diabetes mellitus with foot ulcer; E11.69 Type 2 diabetes mellitus with other specified complication; B96.20 Unspecified Escherichia coli [E. coli] as the cause of diseases classified elsewhere; B95.7 Other staphylococcus as the cause of diseases classified elsewhere; B96.6 Bacteroides fragilis [B. fragilis] as the cause of diseases classified elsewhere; I10 Essential (primary) hypertension; E27.9 Disorder of adrenal gland, unspecified; E11.65 Type 2 diabetes mellitus with hyperglycemia; E83.42 Hypomagnesemia; L08.9 Local infection of the skin and subcutaneous tissue, unspecified; B35.3 Tinea pedis
CPT/HCPCS: 0241U-QW; 36415; 36569; 73630-TC-LT; 73718-TC-LT; 76000-TC-FY; 77001-TC-FY; 80048; 80053; 81003; 82024; 82533; 82803; 82962; 83036; 83605; 83735; 84100; 84378; 85025; 85027; 85610; 85651; 85730; 86140; 86850; 86900; 86901; 87040; 87070; 87075; 87076; 87081; 87086; 87186; 87205; 88304-TC; 88305-TC; 88311-TC; 93005; 93010; 93306-TC; 93926-TC; 93971-TC; 94760; 97116-GP; 97161-GP; 99285-25; C1751; C1760; G0480; J1644

== ENCOUNTER 2023-04-06 07:43 | Inpatient (IN) | payer OTHER ==
[2023-04-06 07:49] VITALS: BMI 27.4
[2023-04-06] MEDS ORDERED: INSULIN REGULAR 100 UNITS in SODIUM CHLORIDE 99 ML IVPB SCH ×2 (08:15→12:00)
[2023-04-06] MEDS: SODIUM CHLORIDE 0.9% 500 ML INFUS.BAG IV ONE ×3 (09:15→13:01)
[2023-04-06 09:23] LABS: BASO % 0.3 % (0-2.0); EOS % 0.6 % (0-4.5); HEMATOCRIT 33.2 % (35.4-49); HEMOGLOBIN 10.9 GM/dL (11.7-16.9); LYMPH % 5.8 % (8-40); MCH 29.2 pg (25.7-33.7); MCHC 32.7 g/dl (32.0-35.9); MEAN CELL VOLUME 89.4 fl (80-96); MEAN PLT VOLUME 7.7 fl (7.5-11.1); MONO % 6.1 % (3.8-10.2); NEUT % 87.2 % (42.8-82.8); PLATELET COUNT 506 10^3/uL (134-434); RBC 3.71 M/mm3 (4.00-5.60); RDW 14.9 % (11.9-15.9); WHITE BLOOD COUNT 13.3 K/mm3 (4.0-10.0)
[2023-04-06 09:33] LABS: INR 1.17 (0.83-1.09); PROTHROMBIN TIME (PATIENT) 13.6 SEC (9.7-13.0)
[2023-04-06 09:36] LABS: ACTIVATED PTT 54.5 SECONDS (25.2-36.5)
[2023-04-06 09:43] LABS: VENOUS BASE EXCESS 0.2 mmol/L (-2-2); VENOUS PH 7.296 (7.310-7.410)
[2023-04-06 09:44] LABS: CHLORIDE 113 mmol/L (98-107); SODIUM 146 mmol/L (136-145)
[2023-04-06 09:46] LABS: ALBUMIN 2.2 g/dl (3.4-5.0); CALCIUM 8.7 mg/dL (8.5-10.1)
[2023-04-06 09:47] LABS: BLOOD UREA NITROGEN 42.2 mg/dL (7-18); CO2 27 mmol/L (21-32)
[2023-04-06 09:49] LABS: SGPT/ALT 14 U/L (13-61)
[2023-04-06 09:50] LABS: CREATININE 2.2 mg/dL (0.55-1.3); SGOT/AST 13 U/L (15-37)
[2023-04-06 09:51] LABS: BILIRUBIN,TOTAL 0.3 mg/dL (0.2-1); TOT PROT 7.5 g/dl (6.4-8.2)
[2023-04-06 09:52] LABS: ALK PHOS 234 U/L (45-117)
[2023-04-06 10:37] LABS: ANION GAP 6 mmol/L (4-13); GLUCOSE,RANDOM 812 mg/dL (74-106); POTASSIUM 6.1 mmol/L (3.5-5.1)
[2023-04-06] MEDS ORDERED: CALCIUM GLUCONATE 10% - 1,000 MG/10 ML VIAL ONE (11:26)
[2023-04-06] MEDS ORDERED: INSULIN REGULAR HUMAN 100 UNITS/ML *VIAL ONE (11:39)
[2023-04-06] MEDS: INSULIN REGULAR HUMAN 100 UNITS/ML *VIAL IVPUSH ONE (12:00)
[2023-04-06] MEDS: INSULIN REGULAR HUMAN 100 UNITS/ML *VIAL* (FOR IVP) IVPUSH ONE (12:02)
[2023-04-06] MEDS: CALCIUM GLUCONATE 10% - 1,000 MG/10 ML VIAL IVPUSH ONE (12:02)
[2023-04-06 14:05] LABS: MAGNESIUM 3.3 mg/dL (1.8-2.4)
[2023-04-06 14:09] LABS: PHOSPHOROUS 4.6 mg/dL (2.5-4.9)
[2023-04-06] MEDS: SODIUM CHLORIDE 1,000 ML IV SCH ×2 (14:18→18:42)
[2023-04-06] MEDS: INSULIN REGULAR 100 UNITS in SODIUM CHLORIDE 99 ML IVPB SCH (14:18)
[2023-04-06 14:19] LABS: CHLORIDE 124 mmol/L (98-107); POTASSIUM 4.7 mmol/L (3.5-5.1); SODIUM 155 mmol/L (136-145)
[2023-04-06 14:20] LABS: ANION GAP 7 mmol/L (4-13); CALCIUM 8.5 mg/dL (8.5-10.1); CO2 24 mmol/L (21-32)
[2023-04-06 14:24] LABS: CREATININE 1.7 mg/dL (0.55-1.3); GLUCOSE,RANDOM 471 mg/dL (74-106)
[2023-04-06 17:54] LABS: EPI CELLS 1 /uL (0-25.1); HYALINE CASTS 0 /uL (0-3.1); URINE APPEARANCE CLEAR; URINE BACTERIA 29 /uL (0-1359); URINE BILIRUBIN NEGATIVE (NEGATIVE); URINE COLOR YELLOW; URINE GLUCOSE (UA) 3+ (NEGATIVE); URINE KETONE TRACE (NEGATIVE); URINE LEUK ESTERASE NEGATIVE (NEGATIVE); URINE NITRITE NEGATIVE (NEGATIVE); URINE PROTEIN 1+ (NEGATIVE); URINE RBC 17 /uL (0-23.9); URINE UROBILINOGEN 0.2 mg/dL (0.2-1.0); URINE WBC 3 /uL (0-25.8)
[2023-04-06] MEDS: INSULIN (LEVEMIR) 100 UNITS/ML UNITS SQ ONE (19:30)
[2023-04-06] MEDS ORDERED: INSULIN (LEVEMIR) 100 UNITS/ML UNITS SQ ONE (21:13)
[2023-04-06] MEDS ORDERED: HEPARIN NA (PORCINE) 5,000 UNITS/ML 1ML VIAL SQ SCH (22:00)
[2023-04-06] MEDS: INSULIN (LEVEMIR) 100 UNITS/ML UNITS SQ SCH (22:46)
[2023-04-06] MEDS: INSULIN ASPART SLIDING SCALE (NOVOLOG) 1 VIAL SQ SCH (22:46)
[2023-04-07] MEDS: INSULIN ASPART SLIDING SCALE (NOVOLOG) 1 VIAL SQ SCH (01:00)
[2023-04-07] MEDS: INSULIN (LEVEMIR) 100 UNITS/ML UNITS SQ SCH (06:38)
[2023-04-07 07:41] LABS: HEMATOCRIT 29.4 % (35.4-49); HEMOGLOBIN 9.7 GM/dL (11.7-16.9); MCH 28.5 pg (25.7-33.7); MCHC 32.9 g/dl (32.0-35.9); MEAN CELL VOLUME 86.5 fl (80-96); MEAN PLT VOLUME 7.4 fl (7.5-11.1); PLATELET COUNT 474 10^3/uL (134-434); RDW 14.9 % (11.9-15.9); WHITE BLOOD COUNT 13.8 K/mm3 (4.0-10.0)
[2023-04-07 08:03] LABS: POTASSIUM 4.6 mmol/L (3.5-5.1)
[2023-04-07 08:08] LABS: ALBUMIN 1.8 g/dl (3.4-5.0); BLOOD UREA NITROGEN 29.4 mg/dL (7-18); CALCIUM 8.7 mg/dL (8.5-10.1)
[2023-04-07 08:10] LABS: CREATININE 1.4 mg/dL (0.55-1.3)
[2023-04-07 08:12] LABS: BILIRUBIN,TOTAL 0.2 mg/dL (0.2-1); TOT PROT 6.3 g/dl (6.4-8.2)
[2023-04-07] MEDS ORDERED: amLODIPine BESYLATE 5 MG TABLET (FP) ONE (09:44)
[2023-04-07] MEDS ORDERED: LOSARTAN POTASSIUM 50 MG TABLET ONE (09:44)
[2023-04-07] MEDS: amLODIPine BESYLATE 5 MG TABLET (FP) PO SCH (09:48)
[2023-04-07] MEDS: LOSARTAN POTASSIUM 50 MG TABLET PO SCH (09:48)
[2023-04-07] MEDS: FINASTERIDE 5 MG TABLET (FP) PO SCH (12:54)
[2023-04-07] MEDS ORDERED: INSULIN (NOVOLOG) ASPART 100 UNITS/ML 10ML VIAL ONE ×3 (17:42→20:46)
[2023-04-07] MEDS: SODIUM CHLORIDE 0.45% 1,000 ML IV SCH (17:49)
[2023-04-08 13:48] LABS: POTASSIUM 4.4 mmol/L (3.5-5.1)
[2023-04-08 13:49] LABS: CALCIUM 8.2 mg/dL (8.5-10.1)
[2023-04-08 13:53] LABS: CREATININE 1.3 mg/dL (0.55-1.3)
[2023-04-08] MEDS: INSULIN ASPART SLIDING SCALE (NOVOLOG) 1 VIAL SQ SCH (16:50)
[2023-04-08] MEDS: ACETAMINOPHEN 325 MG TABLET (FP) PO PRN (22:02)
[2023-04-09] MEDS: INSULIN (LEVEMIR) 100 UNITS/ML UNITS SQ SCH ×2 (06:39→22:00)
[2023-04-09 07:57] LABS: BASO % 0.2 % (0-2.0); EOS % 0.9 % (0-4.5); HEMOGLOBIN 8.6 GM/dL (11.7-16.9); MCH 28.4 pg (25.7-33.7); MCHC 32.9 g/dl (32.0-35.9); MEAN CELL VOLUME 86.1 fl (80-96); MEAN PLT VOLUME 6.7 fl (7.5-11.1); MONO % 6.1 % (3.8-10.2); NEUT % 83.8 % (42.8-82.8); PLATELET COUNT 359 10^3/uL (134-434); RBC 3.02 M/mm3 (4.00-5.60); RDW 14.4 % (11.9-15.9); WHITE BLOOD COUNT 11.4 K/mm3 (4.0-10.0)
[2023-04-09 08:18] LABS: POTASSIUM 4.2 mmol/L (3.5-5.1)
[2023-04-09 08:20] LABS: ALBUMIN 1.5 g/dl (3.4-5.0); CALCIUM 7.6 mg/dL (8.5-10.1)
[2023-04-09 08:21] LABS: BLOOD UREA NITROGEN 24.4 mg/dL (7-18)
[2023-04-09 08:24] LABS: CREATININE 1.4 mg/dL (0.55-1.3)
[2023-04-09 08:25] LABS: BILIRUBIN,TOTAL 0.2 mg/dL (0.2-1); TOT PROT 5.2 g/dl (6.4-8.2)
[2023-04-09] MEDS ORDERED: ALBUTEROL SO4 2.5/IPRATROPIUM 0.5 INH SOL 3 ML VIAL.NEB. NEB SCH (16:00)
[2023-04-09] MEDS: ALBUTEROL SO4 2.5/IPRATROPIUM 0.5 INH SOL 3 ML VIAL.NEB. NEB SCH (16:06)
[2023-04-09] MEDS: DEXTROSE 5%-WATER - 1,000 ML IV SCH (17:55)
[2023-04-10 20:39] LABS: BASO % 0.2 % (0-2.0); EOS % 0.9 % (0-4.5); HEMATOCRIT 28.2 % (35.4-49); HEMOGLOBIN 9.2 GM/dL (11.7-16.9); LYMPH % 9.5 % (8-40); MCH 28.4 pg (25.7-33.7); MCHC 32.6 g/dl (32.0-35.9); MEAN PLT VOLUME 7.4 fl (7.5-11.1); MONO % 7.4 % (3.8-10.2); PLATELET COUNT 378 10^3/uL (134-434); RBC 3.25 M/mm3 (4.00-5.60); RDW 14.1 % (11.9-15.9); WHITE BLOOD COUNT 12.4 K/mm3 (4.0-10.0)
[2023-04-11 08:32] LABS: BASO % 0.1 % (0-2.0); EOS % 1.2 % (0-4.5); HEMATOCRIT 25.2 % (35.4-49); HEMOGLOBIN 8.4 GM/dL (11.7-16.9); LYMPH % 8.9 % (8-40); MCH 28.8 pg (25.7-33.7); MCHC 33.4 g/dl (32.0-35.9); MEAN CELL VOLUME 86.1 fl (80-96); MEAN PLT VOLUME 7.1 fl (7.5-11.1); MONO % 7.9 % (3.8-10.2); NEUT % 81.9 % (42.8-82.8); PLATELET COUNT 373 10^3/uL (134-434); RBC 2.93 M/mm3 (4.00-5.60); WHITE BLOOD COUNT 11.1 K/mm3 (4.0-10.0)
[2023-04-11 08:49] LABS: POTASSIUM 4.5 mmol/L (3.5-5.1)
[2023-04-11 08:53] LABS: ALBUMIN 1.5 g/dl (3.4-5.0); BLOOD UREA NITROGEN 21.3 mg/dL (7-18)
[2023-04-11 08:56] LABS: CREATININE 1.1 mg/dL (0.55-1.3)
[2023-04-11 08:58] LABS: BILIRUBIN,TOTAL 0.2 mg/dL (0.2-1); TOT PROT 5.6 g/dl (6.4-8.2)
[2023-04-11] MEDS: IRON SUCROSE INJECTION 200 MG in SODIUM CHLORIDE 90 ML IVPB ONE (13:37)
[2023-04-12] MEDS ORDERED: guaiFENesin/CODEINE 5 ML UNIT-DOSE CUPS PO PRN (11:59)
[2023-04-12 12:52] LABS: BASO % 0.2 % (0-2.0); EOS % 1.2 % (0-4.5); HEMATOCRIT 26.4 % (35.4-49); HEMOGLOBIN 8.9 GM/dL (11.7-16.9); LYMPH % 8.2 % (8-40); MCH 28.6 pg (25.7-33.7); MCHC 33.6 g/dl (32.0-35.9); MEAN CELL VOLUME 85.3 fl (80-96); MEAN PLT VOLUME 7.1 fl (7.5-11.1); MONO % 8.9 % (3.8-10.2); NEUT % 81.5 % (42.8-82.8); PLATELET COUNT 464 10^3/uL (134-434); RDW 14.4 % (11.9-15.9); WHITE BLOOD COUNT 11.4 K/mm3 (4.0-10.0)
[2023-04-12] MEDS: IRON SUCROSE INJECTION 200 MG in SODIUM CHLORIDE 90 ML IVPB ONE (15:09)
[2023-04-14 02:05] VITALS: RESP 20
[2023-04-14 12:59] VITALS: BP 130/66; PULSE 94; TEMP 97.5
== END 2023-04-14 13:05 | disposition home or self-care (01) | DRG 638 ==
LOC: JER 07:43 → JERBED 10:58 → UNDOADMIN 10:58 → JERBED 15:04 → J4S 04-08 02:12
PROVIDERS: ADMIT Family Medicine; ATTEND Family Medicine
DX: E11.00 Type 2 diabetes mellitus with hyperosmolarity without nonketotic hyperglycemic-hyperosmolar coma (NKHHC) (principal); E87.0 Hyperosmolality and hypernatremia; N17.9 Acute kidney failure, unspecified; N39.0 Urinary tract infection, site not specified; B97.4 Respiratory syncytial virus as the cause of diseases classified elsewhere; I10 Essential (primary) hypertension; E11.51 Type 2 diabetes mellitus with diabetic peripheral angiopathy without gangrene; I65.22 Occlusion and stenosis of left carotid artery; E86.0 Dehydration; D64.9 Anemia, unspecified; D69.6 Thrombocytopenia, unspecified; E87.5 Hyperkalemia; R50.9 Fever, unspecified; B96.1 Klebsiella pneumoniae [K. pneumoniae] as the cause of diseases classified elsewhere; Z89.421 Acquired absence of other right toe(s); Y63.6 Underdosing and nonadministration of necessary drug, medicament or biological substance
CPT/HCPCS: 0241U-QW; 36415; 71045-TC-FY; 80048; 80053; 81003; 82010; 82550; 82553; 82728; 82803; 82962; 83036; 83540; 83550; 83735; 83930; 84100; 84484; 85025; 85027; 85610; 85730; 87040; 87086; 87186; 93005; 93010; 94640; 97116-GP; 97162-GP; 99285-25; J1756

== ENCOUNTER 2024-08-14 12:01 | Observation (INO) | payer OTHER ==
[2024-08-14 12:08] VITALS: BMI 24.8
[2024-08-14] MEDS ORDERED: KETOROLAC TROMETHAMINE 15 MG/ML VIAL ONE (13:03)
[2024-08-14] MEDS: KETOROLAC TROMETHAMINE 15 MG/ML VIAL IVPUSH ONE (14:20)
[2024-08-14 14:42] LABS: HEMATOCRIT 31.7 % (40.1-51.0); HEMOGLOBIN 10.2 g/dL (13.7-17.5); MCHC 32.2 g/dl (32.3-36.5); MEAN CELL VOLUME 88.3 fl (79.0-92.2); PLATELET COUNT 272 x10^3/uL (163-337); RDW 13.6 % (12.2-16.4)
[2024-08-14 15:01] LABS: POTASSIUM 5.3 mmol/L (3.5-5.1)
[2024-08-14 15:03] LABS: ALBUMIN 3.5 g/dl (3.4-5.0); CALCIUM 9.3 mg/dL (8.5-10.1)
[2024-08-14 15:04] LABS: BLOOD UREA NITROGEN 29.7 mg/dL (7-18); MAGNESIUM 1.8 mg/dL (1.8-2.4)
[2024-08-14 15:07] LABS: CREATININE 1.5 mg/dL (0.55-1.3)
[2024-08-14 15:08] LABS: BILIRUBIN,TOTAL 0.3 mg/dL (0.2-1); TOT PROT 7.1 g/dl (6.4-8.2)
[2024-08-14] MEDS ORDERED: ACETAMINOPHEN INJECTION 100 ML ONE (16:21)
[2024-08-14] MEDS: ACETAMINOPHEN 1000 MG/100 ML BAG IVPB ONE (16:39)
[2024-08-14] MEDS: SODIUM CHLORIDE 0.9% 500 ML INFUS.BAG IV ONE (16:39)
[2024-08-14] MEDS ORDERED: amLODIPine BESYLATE 10 MG TABLET (FP) ONE (17:55)
[2024-08-14] MEDS: LACTATED RINGERS SOLUTION 1,000 ML/1,000 ML INFUS.BAG IV SCH (18:24)
[2024-08-14] MEDS: amLODIPine BESYLATE 10 MG TABLET (FP) PO SCH (18:24)
[2024-08-14] MEDS: INSULIN ASPART SLIDING SCALE (NOVOLOG) 1 VIAL SQ SCH (20:59)
[2024-08-14] MEDS: HEPARIN NA (PORCINE) 5,000 UNITS/ML 1ML VIAL SQ SCH (21:00)
[2024-08-14 21:53] LABS: HCV DIAGNOSTIC IN-HOUSE W/RFLX NON-REACTIVE (NONREACTIVE)
[2024-08-14] MEDS: ACETAMINOPHEN 325 MG TABLET (FP) PO PRN (21:55)
[2024-08-14 21:58] LABS: HIV INTERPRETATION NEGATIVE (NEGATIVE)
[2024-08-15 06:40] VITALS: RESP 20
[2024-08-15 08:44] LABS: HEMATOCRIT 29.7 % (40.1-51.0); HEMOGLOBIN 9.9 g/dL (13.7-17.5); MCHC 33.3 g/dl (32.3-36.5); MEAN CELL VOLUME 87.9 fl (79.0-92.2); MEAN PLT VOLUME 9.8 fl (9.4-12.4); PLATELET COUNT 245 x10^3/uL (163-337); RDW 13.2 % (12.2-16.4)
[2024-08-15] MEDS: LIDOCAINE 4% PATCH TP SCH (08:55)
[2024-08-15 09:01] LABS: POTASSIUM 4.7 mmol/L (3.5-5.1)
[2024-08-15 09:11] LABS: BLOOD UREA NITROGEN 29.8 mg/dL (7-18); MAGNESIUM 1.6 mg/dL (1.8-2.4)
[2024-08-15 09:13] LABS: CREATININE 1.3 mg/dL (0.55-1.3)
[2024-08-15 09:14] LABS: PHOSPHOROUS 3.7 mg/dL (2.5-4.9)
[2024-08-15] MEDS: FINASTERIDE 5 MG TABLET (FP) PO SCH (09:25)
[2024-08-15] MEDS: ASPIRIN 81 MG CHEWABLE TABLETS PO SCH (09:25)
[2024-08-15 09:33] VITALS: BP 161/76; PULSE 68; TEMP 98.2
[2024-08-15] MEDS: FLUTICASONE/UMECLIDIN/VILANTER(200-62.5-25 TRELEGY ELLIPTA) INAHLER IH SCH (11:01)
[2024-08-15] MEDS: MAGNESIUM SULF 50% (8.12 MEQ/2 ML-1 GM VIAL) IVPB ONE (12:46)
[2024-08-15] MEDS ORDERED: ATORVASTATIN CA 40 MG TABLET (FP) PO SCH (22:00)
[2024-08-15] MEDS ORDERED: LIDOCAINE PATCH REMOVAL MC SCH (22:00)
== END 2024-08-15 16:03 | disposition home or self-care (01) ==
LOC: JER 12:01 → JERBED 16:19 → J5S 19:27
PROVIDERS: ADMIT Student in an Organized Health Care Education/Training Program; ATTEND Internal Medicine
PROC: 3E033NZ Introduction of Analgesics, Hypnotics, Sedatives into Peripheral Vein, Percutaneous Approach (ICD-10-PCS; principal; 2024-08-14)
PROC: 3E023GC Introduction of Other Therapeutic Substance into Muscle, Percutaneous Approach (ICD-10-PCS; 2024-08-14)
PROC: 3E013VG Introduction of Insulin into Subcutaneous Tissue, Percutaneous Approach (ICD-10-PCS; 2024-08-14)
PROC: 3E0333Z Introduction of Anti-inflammatory into Peripheral Vein, Percutaneous Approach (ICD-10-PCS; 2024-08-14)
PROC: 3E0337Z Introduction of Electrolytic and Water Balance Substance into Peripheral Vein, Percutaneous Approach (ICD-10-PCS; 2024-08-14)
DX: M77.8 Other enthesopathies, not elsewhere classified (principal); N17.9 Acute kidney failure, unspecified; E87.5 Hyperkalemia; Z91.148 Patient's other noncompliance with medication regimen for other reason; I10 Essential (primary) hypertension; E11.9 Type 2 diabetes mellitus without complications; D64.9 Anemia, unspecified; M25.512 Pain in left shoulder
CPT/HCPCS: 36415; 71046-TC-FY; 72125-TC; 73030-TC-LT-FY; 80048; 80053; 82962; 83036; 83735; 84100; 84484; 85027; 86803; 87389; 93005; 93010; 97116-GP; 97161-GP; 99285-25; G0378